=== PATIENT | male | born 1965 | race Caucasian/White ===

== ENCOUNTER 2024-09-02 16:35 | Emergency (ER) | payer MEDICARE, SELFPAY ==
[2024-09-02] VITALS (9 sets, daily range): BP systolic 116–145; BP diastolic 73–84; PULSE 60–86; RESP 16–18; TEMP 36.7; O2SAT 96–100; BMI 25.7
--- OUTSIDE RECORDS SUMMARY | 2024-09-02 11:00 | XMS_ITS | Encounter Summary ---
Author Organization [facility] Address [address] [place] [address] Care Team Providers Care Jigman Name Role Phone Bassam Padilla MD Primary Care Provider [phone] Reason for Referral * CT Scan (Urgent) - Pending Review Specialty Diagnoses / Procedures Referred By Jailene crooks Referred To Contact Diagnoses Incisional hernia, without obstruction or gangrene History of malignant neoplasm of large intestine Procedures CT ABDOMEN PELVIS W CONTRAST CT ABDOMEN PELVIS W CONTRAST CT ABDOMEN PELVIS W CONTRAST Bassam Padilla MD [address] [place] [phone] Phone: tel: fax: Referral ID Status Reason Start Date Expiration Date V isits Requested Visits Authorized [id number] Pending Review 09/02/2024 10/03/2025 1 1 * Eval and Treat (Routine) - Open Specialty Diagnoses / Procedures Referred By Jailene crooks Referred To Contact Surgery Diagnoses Incisional hernia, without obstruction or gangrene History of malignant neoplasm of large intestine Procedures ME OFFICE/OUTPATIENT ESTABLISHED MOD MDM 30 MIN ME OFFICE/OUTPATIENT NEW MODERATE MDM 45 MINUTES Bassam Padilla MD [address] [place] [phone] Phone: tel: fax: Referral ID Status Reason Start Date Expiration Date Visits Re quested Visits Authorized [id number] Open 09/02/2024 09/02/2025 1 1 Reason for Visit * Reason Comments Annual Wellness Visit (Medicare) Chronic Conditions Coordination Encounter Details Date Type Department Care Team (Late st Contact Info) Description 09/02/2024 11:00 AM CDT Office Visit [facility] [address] [address] Bassam Padilla MD [address] [place] [phone] Medicare annual wellness visit, subsequent (Primary [...] on file Legal Sex Male 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 All questions were answered. Uryti-Cswvv-Vrtouor provided to patient. ACUTE AND/OR CHRONIC ISSUES [...] Patient is currently in drug rehab at [facility] for the next month. He is needing [...] Portions of this note were created using Mark media Dictation software. Attempts were made to correct any mistakes prior to signing this note. There is always a possibility that words were not transcribed correctly. documented in this encounter Plan of Treatment Upcoming Encounters Date Type Department Care Team (Late st Contact Info) Description 03/07/2025 11:00 AM SLATE TRIMMER Office Visit [facility] Medicine [address] [address] Niya Mccormick, [facility] [address] [address] Scheduled Orders Name Type Priority Associated Diagnoses Orde r Schedule TSH REFLEXIVE Lab Routine Moderate episode of recurrent major depressive disorder Expected: 09/02/2024, Expires: 09/02/2025 LIPID PANEL Lab Routine Medicare annual wellness visit, subsequent Expected: 09/02/2024, Expires: 09/02/2025 COMPREHENSIVE METABOLIC PANEL Lab Routine Medicare annual wellness visit, subsequent Expected: 09/02/2024, Expires: 09/02/2025 CBC WITH DIFFERENTIAL Lab Routine Medicare annual wellness visit, subsequent Expected: 09/02/2024, Expires: 09/02/2025 CT ABDOMEN PELVIS W CONTRAST Imaging Stat [...] Ordered: 09/02/2024 documented as of this encounter Visit Diagnoses Diagnosis Medicare annual [...] Noted Time PHQ-9 Depression Total Score: 1 09/03/19 25 10:32 AM CDT documented as of this encounter Care Teams Jigman Relationship Specialty Start Date End Date Bassam Padilla MD [address] [place] [phone] PCP - General Family Practice 10/15/23 documented as of this encounter
--- OUTSIDE RECORDS SUMMARY | 2024-09-02 16:58 | XMS_ITS | Encounter Summary ---
Author Organization [facility] Address [address] [place] [address] Care Team Providers Care Back Tender Fourdrinier Name Role Phone Bassam Padilla MD Primary Care Provider [phone] Reason for Visit * Reason Comments Provider Call Encounter Details Date Type Department Care Team ([facility] st Contact Info) Description 08/31/2024 Telephone [facility] [place] [address] [address] Bassam Padilla MD [address] [address] Provider Call Social History Tobacco Use Types Packs/Day Years Used Date Smoking Tobacco: Every Day Cigarettes Smokeless Tobacco: Never Alcohol Use Standard Drinks/Week Comments No 0 [...] on file Legal Sex Male 1:01 AM CHARGE ENTRY Gender Identity Not on file Sexual Orientation Not on file documented as of this encounter Miscellaneous Notes * Telephone Encounter - Anastasia Le - 08/31/2024 3:05 PM CDT Copied from [facility] #[id number]. Topic: [id number] Call >> Aug 31, 2024 2:58 PM Anastasia Serna wrote: Caller is requesting to speak with Clinical Care Team. Caller Name: [facility] Callback Number: [phone] Clinician Type: Other healthcare professional not listed above Call Notes: Has TAN and is requesting records. Transferred to CI. Is this addressing an immediate patient care need? No documented in this encounter Plan of Treatment Upcoming Encounters Date Type Department Care Team (Late st Contact Info) Description 03/07/2025 11:00 AM CHARGE ENTRY Office Visit [facility] [place] [address] [facility] [address] [place] [address] Niya Mccormick FNP [address] [facility] [address] [place] [address] documented as of this encounter Visit Diagnoses Not on filedocumented in this encounter Additional Health Concerns Assessment Noted Time PHQ-9 Depression Total Score: 2 08/14/19 24 6:00 PM CDT documented as of this encounter Care Teams Back Tender Fourdrinier Relationship Specialty Start Date End Date Bassam Padilla MD [address] [facility] [address] [place] [address] PCP - General Family Practice 10/15/23 documented as of this encounter
--- OUTSIDE RECORDS SUMMARY | 2024-09-02 16:58 | XMS_ITS | Encounter Summary ---
Author Organization [facility] Address [address] [place] [address] Care Team Providers Care Acrylic Fabricator Name Role Phone Coleman Montero MD Primary Care Provider [phone] Encounter Details Date Type Department Care Team (Latest Contact Info) Description 07/07/1998 Outpatient Historical [address] [phone] Shaw Schmidt, DO [address] [place] [address] Essential and other specified forms of tremor (Primary Dx) Social History Tobacco Use Types Packs/Day Years Used Date Smoking Tobacco: Never Assessed Sex and Gender Information Value Date Recorded Sex Assigned at Not on file Legal Sex Male 5:53 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
--- OUTSIDE RECORDS SUMMARY | 2024-09-02 16:58 | XMS_ITS | Encounter Summary ---
Author Organization [facility] Address [address] [place] [address] Care Team Providers Care Loading Dock Helper Name Role Phone Coleman Montero MD Primary Care Provider [phone] Encounter Details Date Type Department Care Team (Latest Contact Info) Description 03/16/2005 Outpatient Historical [facility] [address] [place] [phone] Jaden Pardo MD [address] [place] [phone] CYST OF KIDNEY, ACQUIRED (Primary Dx) Social History Tobacco Use Types Packs/Day Years Used Date Smoking Tobacco: Never Assessed Sex and Gender Information Value Date Recorded Sex Assigned at Not on file Legal Sex Male 5:53 AM COMMUNITY OUTREACH SPECIALIST Gender Identity Not on file Sexual Orientation Not on file documented as of this encounter Plan of Treatment Not on file documented as of this encounter Visit Diagnoses Diagnosis Acquired cyst of kidney- Primary documented in this encounter Care Teams Loading Dock Helper Relationship Specialty Start Date End Date Coleman Montero MD [address] [place] [address] PCP - General Family Practice 08/18/13 documented as of this encounter
--- OUTSIDE RECORDS SUMMARY | 2024-09-02 16:58 | XMS_ITS | Encounter Summary ---
Author Organization [facility] Address [address] [place] [address] Care Team Providers Care Raised Printer Name Role Phone Coleman Montero MD Primary Care Provider [phone] Encounter Details Date Type Department Care Team (Latest Contact Info) Description 05/01/1998 Outpatient Historical [address] [phone] Shaw Schmidt, DO [address] [place] [address] Spasm of muscle (Primary Dx) Social History Tobacco Use Types Packs/Day Years Used Date Smoking Tobacco: Never Assessed Sex and Gender Information Value Date Recorded Sex Assigned at Not on file Legal Sex Male 5:53 AM PERSONAL PROPERTY APPRAISER Gender Identity Not on file Sexual Orientation Not on file documented as of this encounter Plan of Treatment Not on file documented as of this encounter Visit Diagnoses Diagnosis Spasm of muscle- Primary documented in this encounter Care Teams Raised Printer Relationship Specialty Start Date End Date Coleman Montero MD [address] [place] [phone] PCP - General Family Practice 08/18/13 documented as of this encounter
--- OUTSIDE RECORDS SUMMARY | 2024-09-02 16:58 | XMS_ITS | Encounter Summary ---
Author Organization [facility] Address [address] [place] [address] Care Team Providers Care Coal Handling Supervisor Name Role Phone Coleman Montero MD Primary Care Provider [phone] Encounter Details Date Type Department Care Team (Latest Contact Info) Description 11/19/[address] [facility] Occupational Medicine [address] [place] [phone] Eran Barajas MD NO ADDRESS ON FILE Routine medical exam (Primary Dx) Social History Tobacco Use Types Packs/Day Years Used Date Smoking Tobacco: Never Assessed Sex and Gender Information Value Date Recorded Sex Assigned at Not on file Legal Sex Male 5:53 AM SAMPLE TESTER Gender Identity Not on file Sexual Orientation Not on file documented as of this encounter Plan of Treatment Not on file documented as of this encounter Visit Diagnoses Diagnosis Routine medical exam- Primary Routine general medical examination at a health care facility documented in this encounter Care Teams Coal Handling Supervisor Relationship Specialty Start Date End Date Coleman Montero MD [address] [place] [address] PCP - General Family Practice 08/18/13 documented as of this encounter
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
--- OUTSIDE RECORDS SUMMARY | 2024-09-02 16:58 | XMS_ITS | Encounter Summary ---
Author Organization [facility] Address [address] [place] [address] Care Team Providers Care Recreational Facilities Motel Manager Name Role Phone Coleman Montero MD Primary Care Provider [phone] Encounter Details Date Type Department Care Team (Latest Contact Info) Description 06/12/1998 Outpatient Historical [facility] [place] [address] [place] [address] Abnormal involuntary movements(781.0) (Primary Dx) Social History Tobacco Use Types Packs/Day Years Used Date Smoking Tobacco: Never Assessed Sex and Gender Information Value Date Recorded Sex Assigned at Not on file Legal Sex Male 5:53 AM TECHNICAL APPLICATIONS SPECIALIST Gender Identity Not on file Sexual Orientation Not on file documented as of this encounter Plan of Treatment Not on file documented as of this encounter Visit Diagnoses Diagnosis Abnormal involuntary movements(781.0)- Primary Abnormal involuntary movements documented in this encounter Care Teams Recreational Facilities Motel Manager Relationship Specialty Start Date End Date Coleman Montero MD [address] [place] [address] PCP - General Family Practice 08/18/13 documented as of this encounter
--- OUTSIDE RECORDS SUMMARY | 2024-09-02 16:58 | XMS_ITS | Clinical Summary ---
Author Organization [facility] Address [address] [place] [address] Phone Care Team Providers Care Loan Representative Name Role Phone Coleman Montero MD Primary Care Provider [phone] Allergies Active Allergy Reactions Criticality Noted Date Comments Ibuprofen Hives High 08/26/2009 Oxaliplatin Shortness of Breath/Wheezing High 2013 Medications diphenoxylate-a tropine (LOMOTIL) 2.5-0.025 mg tablet Take 2 Tablets by mouth 2 times daily. 200 Tablet 1 0 Active mirtazapine (REMERON) 30 mg tabletIndicatio ns:Moderate episode of recurrent major depressive disorder (CMS/HCC) TAKE 1 TABLET BY MOUTH AT BEDTIME 90 Tablet 3 0 Active pregabalin (Lyrica) 150 mg CapsuleIndicati ons:Chronic midline low back pain with bilateral sciatica Take 1 Capsule (150 mg) by mouth 3 times daily. 90 Capsule 5 0 Active colestipoL (COLESTID) 1 gram tablet Take 4 Tablets (4,000 mg) by mouth 2 times daily. 720 Tablet 4 0 Active Combivent Respimat 20-100 mcg/actuation Mist INHALE 1 PUFF BY MOUTH EVERY 6 HOURS NEEDED FOR SHORTNESS OF BREATH OR WHEEZING 4 Gram 1 Active Active Problems Problem Noted Date Diagnosed Date Drug-induced polyneuropathy 02/22/2020 Overview (02/22/2020): ADDED PER PVQ REPLY 02.11.2020 Prediabetes 08/21/2019 Elevated alanine aminotransferase (ALT) level Adenomatous polyp of colon 10/22/2018 Incisional hernia, without o bstruction or gangrene - upper midline to the left 12/16/2016 Moderate episode of recurrent major depressive d isorder 02/09/2016 Abdominal pain, chronic, generalized 06/07/2014 History of malignant neoplasm of large intestine 04/18/2014 Chronic diarrhea 03/02/2014 Chronic midline low back pain with bilateral sci atica 08/23/2013 Asthma 07/12/2013 Anemia 04/13/2013 Tobacco use disorder 09/02/2010 Resolved Problems Problem Noted Date Diagnosed Date Resolved Date Elevated glucose level 08/13/201908/20 Osteoarthritis of spine with radiculopathy, lumbar region 04/26/2016 01/11/2018 Chronic pain syndrome 02/09/20162017 Chronic LBP 07/05/2014 12/16/2016 Lumbosacral spondylosis 07/05/201411/25 Lumbosacral spondylolysis 07/05/2014 Lumbar foraminal stenosis 07/05/2014 Osteoarthritis of lumbar spine 05/25/2014 04/26/2016 Special screening for malign ant neoplasms, colon 04/18/2014 01/11/2018 Lumbar disc disease 09/27/2013 01/12/20 18 Left knee pain 07/12/2013 01/11/2018 Depression 07/12/2013 02/09/2016 Adenocarcinoma of colon 04/14/201311/25 Hematuria 04/13/2013 07/12/2013 Hematemesis 04/12/2013 07/12/2013 Blood in stool 04/12/2013 07/12/2013 Change in bowel habits 04/12/201307/12 Abdominal pain, other specified site 04/11/2013 08/23/2013 Atypical chest pain 09/02/2010 07/13/19 14 Anxiety state, unspecified 09/02/2010 0 07/12/2013 Low back pain 09/02/2010 07/12/2013 Overview (09/02/2010): anterolithesis on S1 noted on xray films in May 2010- has worn back brace during the day and at night since then Migraines 09/02/2010 07/12/2013 Overview (09/02/2010): Since age 16 Immunizations Immunization Administration Dates Next Due (ADACEL/BOOSTRIX)(10 YR UP) TDAP VACCINE, 0.5ML, IM 01/28/2014 (SHINGRIX)(50 YRS UP) ZOSTER VACCINE RECOMBINANT, 0.5 ML, IM 06/01/2019,12/07/2018,03/26/2018 INFLUENZA VACCINE QUADRIVALE NT 6 MOS UP CELL DERIVED PF IM 11/22/2016 INFLUENZA VACCINE QUADRIVALE NT 6 MOS UP PF IM 02/21/2020 Influenza Seasonal Unspecifi ed Formulation IM 12/06/2017,11/22/2016 Influenza Vaccine Quad Split 18 Yrs+ Im 11/03/19 19 Influenza Vaccine Quad Split 3+ Yrs Im 4 PNEUMOVAX (PPSV23) pneumococ maxine polysaccharide 23-valent Vaccine 12/06/2017 Family History Medical History Relation Name Comments High Cholesterol Brother Heart Disease Father Respiratory Disease Father Heart Disease Mother Hypertension Mother Kidney Disease Mother Other Mother Heart Disease Sister 1 Unknown Sister 2 Unknown Sister 3 Colon Cancer Neg Hx Relation Name Status Comments Brother Alive Father Mother Alive Sister 1 Alive Sister 2 Alive Sister 3 Alive Social History Tobacco Use Types Packs/Day Years Used Date Smoking Tobacco: Every Day Cigarettes 0.5 36 Smokeless Tobacco: Never Tobacco Cessation:Counseling Given: Yes Alcohol Use Standard Drinks/Week Comments No 0 (1 standard drink = 0.6 oz pur e alcohol) Social Connections Answer Date Recorded In a typical week, how many times do you talk on the phone with family, friends, or neighbors? Once a week 02/11/2020 How often do you get togethe r with friends or relatives? Never 02/11/2020 How often do you attend chur ch or shinto services? More than 4 times per year 02/11/2020 Do you belong to any clubs o r organizations such as sabianist groups, unions, fraternal or athletic groups, or school groups? No 02/11/2020 How often do you attend meet ings of the clubs or organizations you belong to? More than 4 times per year 02/11/2020 Marital Status Not on file 02/11/2020 Financial Resource Strain Answer Date R ecorded How hard is it for you to pa y for the very basics like food, housing, medical care, and heating? Somewhat hard 02/11/2020 Food Insecurity Answer Date Recorded Within the past 12 months, y ou worried that your food would run out before you got the money to buy more. Often true 02/11/20 20 Within the past 12 months, t he food you bought just didn't last and you didn't have money to get more. Often true 02/11/2020 Transportation Needs Answer Date Record ed In the past 12 months, has l ack of transportation kept you from medical appointments or from getting medications? Yes 01/24 In the past 12 months, has l ack of transportation kept you from meetings, work, or from getting things needed for daily living? Yes 02/11/2020 Education Answer Date Recorded What is the highest level of school you have completed or the highest degree you have received? 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 Gender Identity Not on file Sexual Orientation Not on file Occupation Industry Job Start Date Job End Date Not on file Not on file Not on file Not on file Not on file Not on file Not on file Not on file Last Filed Vital Signs Vital Sign Reading Time Taken Comments Blood Pressure 152/88 07/20/2020 10:03 AM CDT Pulse 73 07/20/2020 10:03 AM CDT Temperature 36.2 C (97.1 F) 07/20/2020 10:03 AM CDT Respiratory Rate 16 02/11/2020 9:23 AM PASTRY SUPERVISOR Oxygen Saturation 98% 07/20/2020 10:03 AM CDT Inhaled Oxygen Concentration - - Weight 117 kg (258 lb) 07/20/2020 10:03 AM CDT Height 180.3 cm (5' 11 ) 07/20/2020 10:03 AM CDT Body Mass Index 35.98 07/20/2020 10:03 AM CDT Plan of Treatment Health Maintenance Due Date Last Done Comments HEPATITIS B VACCINES (1 of 3 - 19+ 3-dose series) 12/18/1986 DTAP/TDAP/TD VACCINES (2 - T d or Tdap) 01/29/2024 01/28/2014 [place] ([place]) Preventative Visit/Annual Wellness Visit 02/25/2024 02/11/2020 COLORECTAL SCREENING 05/11/2024 05/12/2019, 05/12/2019, 02/27/2016, Additional history exists INFLUENZA VACCINE (#1) 2024 0, 11/02/2018, 12/06/2017, Additional history exists ZOSTER VACCINE Completed 06/01/2019, 11/24, 03/26/2018 Procedures Procedure Name Priority Date/Time Associated Diagnosis Comments COLONOSCOPY REPORT 05/12/2019 11 :09 AM CDT from Last 3 Months or Most Recently Relevant to Health Maintenance Results * COLONOSCOPY REPORT (05/12/2019 11:09 AM CDT) Narrative Procedure Note Trav Villalta MD - 05/12/2019 11:09 AM CDT [facility] Patient Name: Dimas Prado Procedure Date: 05/12/2019 Date of : 1965 Admit Type: Outpatient Age: 53 Attending MD: Trav Villalta , Procedure: Colonoscopy Indications: Screening for malignant neoplasm in the colon, High risk colon cancer surveillance: Personal history of colon cancer Providers: Trav Villalta Referring MD: Coleman Montero MD Medicines: Midazolam 5 mg IV, Fentanyl 100 micrograms IV Complications: No immediate complications. Procedure: After I obtained informed consent, the scope was passed under direct vision. Throughout the procedure, the patient's blood pressure, pulse, and oxygen saturations were monitored continuously. The Colonoscope was introduced through the anus and advanced to the terminal ileum, with identification of the appendiceal orifice and IC valve. The colonoscopy was performed without difficulty. The patient tolerated the procedure well. The quality of the bowel preparation was adequate. Estimated Blood Loss: Estimated blood loss: none. Findings: A 5 mm polyp was found in the sigmoid colon. The polyp was sessile. The polyp was removed with a cold snare. Resection and retrieval were complete. The exam was otherwise without abnormality. There was evidence of a prior end-to-side ileo-colonic anastomosis in the transverse colon. This was patent and was characterized by healthy appearing mucosa. Impression: - One 5 mm polyp in the sigmoid colon, removed with a cold snare. Resected and retrieved. - The examination was otherwise normal. - Patent end-to-side ileo-colonic anastomosis, characterized by healthy appearing mucosa. Recommendation: - Await pathology results. - Repeat colonoscopy in 5 years. Trav Villalta, 05/12/2019 11:09:13 AM Number of Addenda: 0 Note Initiated On: 05/12/2019 10:53 AM Scope Withdrawal Time 0 hours 5 minutes 32 seconds Scope In: 10:58:15 AM Scope Out: 11:06:05 AM [id number] [place], [place] Trav Villalta MD GI PROCEDURE ORDERABLES Fin al Result from Last 3 Months or Most Recently Relevant to Health Maintenance Insurance MEDICAID [place] Advance Directives For more information, please contact: [phone] * Full Code (Latest Code Status on File) Date Activated Date Inactivated Comments 05/12/2019 10:30 AM 05/12/2019 1:33 PM * Full Code Date Activated Date Inactivated Comments 02/27/2016 9:31 AM 02/27/2016 12:33 PM * Full Code Date Activated Date Inactivated Comments 04/18/2014 10:37 AM 04/18/2014 2:31 PM * Full Code Date Activated Date Inactivated Comments 05/26/2013 11:53 AM 05/26/2013 3:18 PM * Full Code Date Activated Date Inactivated Comments 05/26/2013 9:34 AM 05/26/2013 11:53 AM Care Teams Loan Representative Relationship Specialty Start Date End Date Coleman Montero MD [address], [place] [address] PCP - General Family Practice 08/18/13
--- OUTSIDE RECORDS SUMMARY | 2024-09-02 16:58 | XMS_ITS | Encounter Summary ---
Author Organization [facility] Address [address] [place] [address] Care Team Providers Care Manager Intensive Care Unit Name Role Phone Bassam Padilla MD Primary Care Provider [phone] Reason for Visit * Reason Comments Provider Call Encounter Details Date Type Department Care Team ([facility] st Contact Info) Description 09/02/2024 Telephone [facility] [place] [address] [address] Bassam Padilla MD [address] [address] Provider Call Social History Tobacco Use Types Packs/Day Years Used Date Smoking Tobacco: Every Day Cigarettes Passive Smoke Exposure: Current Smokeless Tobacco: Never Alcohol Use Standard Drinks/Week [...] on file Legal Sex Male 1:01 AM CUT OFF SAW TENDER 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 They will share information as they receive it from ER * Telephone Encounter - Jeffrey Velarde - 09/02/2024 12:52 PM CDT Copied from [facility] #[id number]. Topic: [id number] Call >> Sep 02, 2024 12:47 PM Jeffrey Serna wrote: Caller is requesting to speak with Clinical Care Team. Caller Name: Massiel collins/ [facility] (Other) Callback Number: [phone] Clinician Type: Other healthcare professional not listed above Call Notes: Massiel was calling to get some clarification on the patient's health conditions. She states that the patient is reporting that he has end stage cancer, and has missed several oncology appointments and surgeries. His chart does show anything reporting that, so she is needing some verification. Is this addressing an immediate patient care need? No documented in this encounter Plan of Treatment Upcoming Encounters Date Type Department Care Team (Late st Contact Info) Description 03/07/2025 11:00 AM CUT OFF SAW TENDER METAL Office Visit [facility] [place] [address] [address] Niya Mccormick FNP [address] [facility] [address] [place] [address] documented as of this encounter Visit Diagnoses Not on filedocumented in this encounter Additional Health Concerns Assessment Noted Time PHQ-9 Depression Total Score: 1 09/03/19 10:32 AM CDT documented as of this encounter Care Teams Manager Intensive Care Unit Relationship Specialty Start Date End Date Bassam Padilla MD [address] [place] [phone] PCP - General Family Practice 10/15/23 documented as of this encounter
--- OUTSIDE RECORDS SUMMARY | 2024-09-02 16:58 | XMS_ITS ---
Author Organization [facility] Address [address] [place] [address] Phone Care Team Providers Care Blood Bank Technician Name Role Phone Bassam Padilla MD Primary Care Provider [phone] Active Problems Problem Noted Date Diagnosed Date Allergy to bee sting 09/02/2024 Drug-induced polyneuropathy 02/22/2020 Overview (06/23/2020): ADDED PER PVQ REPLY 02.11.2020 Adenomatous polyp of colon 10/22/2018 Incisional hernia, without o bstruction or gangrene - upper midline to the left 12/16/2016 Moderate episode of recurrent major depressive d isorder 02/09/2016 Abdominal pain, chronic, generalized 06/07/2014 History of malignant neoplasm of large intestine 04/18/2014 Chronic diarrhea 03/02/2014 Chronic midline low back pain with bilateral sci atica 08/23/2013 Asthma 07/12/2013 Anemia 04/13/2013 Tobacco use disorder 09/02/2010 Current Treatment and Therapy Plans No current plan information found. Past Treatment and Therapy Plans No past plan information found. Lifetime Dose Tracking * Chemical Lifetime Dose Automatic Entry Manual Entr y Effective Dose 15.6 mSv 0 mSv 15.6 mSv Total DLP 1,384 DLP 0 DLP 1,384 DLP CTDIvol Max 13.7 mGy 0 mGy 13.7 mGy CTDIvol Min 12.8 mGy 0 mGy 12.8 mGy Resolved Problems Problem Noted Date Diagnosed Date Resolved Date Prediabetes 08/21/2019 04/15/2023 Elevated glucose level 08/13/201908/20 Elevated alanine aminotransferase (ALT) level 06/09/19 20 09/02/2024 Osteoarthritis of spine with radiculopathy, lumbar region 04/26/2016 01/11/2018 Chronic pain syndrome 02/09/20162017 Lumbosacral spondylosis 07/05/201411/25 Chronic LBP 07/05/2014 12/16/2016 Lumbar foraminal stenosis 07/05/2014 Lumbosacral spondylolysis 07/05/2014 Osteoarthritis of lumbar spine 05/25/2014 04/26/2016 Special screening for malign ant neoplasms, colon 04/18/2014 01/11/2018 Lumbar disc disease 09/27/2013 01/12/20 Left knee pain 07/12/2013 01/11/2018 Depression 07/12/2013 02/09/2016 Adenocarcinoma of colon 04/14/201311/25 Hematuria 04/13/2013 07/12/2013 Change in bowel habits 04/12/201307/12 Hematemesis 04/12/2013 07/12/2013 Blood in stool 04/12/2013 07/12/2013 Abdominal pain, other specified site 04/11/2013 08/23/2013 Atypical chest pain 09/02/2010 07/13/19 14 Migraines 09/02/2010 07/12/2013 Overview (06/21/2020): Since age 16 Low back pain 09/02/2010 07/12/2013 Overview (06/21/2020): anterolithesis on S1 noted on xray films in May 2010- has worn back brace during the day and at night since then Anxiety state, unspecified 09/02/2010 0 07/12/2013
--- OUTSIDE RECORDS SUMMARY | 2024-09-02 16:58 | XMS_ITS | Encounter Summary ---
Author Organization [facility] Address [address] [place] [address] Care Team Providers Care Hardboard Press Operator Name Role Phone Coleman Montero MD Primary Care Provider [phone] Encounter Details Date Type Department Care Team (Late st Contact Info) Description 02/21/2007 Emergency [facility] Emergency Department [address] 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 Gender Identity Not on file Sexual Orientation Not on file documented as of this encounter Plan of Treatment Not on file documented as of this encounter Procedures Procedure Name Priority Date/Time Associated Diagnosis Comments CBC WITH DIFFERENTIAL Routine 02/21/2007 11:17 AM HOSE FINISHER documented in this encounter Results * (ABNORMAL) CBC WITH DIFFERENTIAL (02/21/2007 11:17 AM HOSE FINISHER) WBC 11.7(H) 4.5 - 11.0 K/ul INTERFACE SYSTEM RBC 4.53(L) 4.60 - 6.20 Mil/ul INTERFACE SYSTEM HEMOGLOBIN 14.5 14.0 - 18.0 g/dL INTERFACE SYSTEM HEMATOCRIT 42.0 41.0 - 53.0 % INTERFACE SYSTEM MCV 92.7 84.0 - 103.0 Fl INTERFACE SYSTEM MCH 32.0 27.0 - 34.0 pg INTERFACE SYSTEM MCHC 34.5 30.0 - 35.0 g/dL INTERFACE SYSTEM RDW 13.7 11.0 - 14.5 % INTERFACE SYSTEM PLATELETS 222 140 - 440 K/ul INTERFACE SYSTEM MPV 9.9 8.9 - 12.8 Fl INTERFACE SYSTEM NEUTROPHILS 67.1 42.2 - 75.2 % INTERFACE SYSTEM LYMPHOCYTES 16.4(L) 24.0 - 44.0 % INTERFACE SYSTEM MONOCYTES 15.7(H) 2.0 - 10.0 % INTERFACE SYSTEM EOSINOPHILS 0.5 0.0 - 7.0 % INTERFACE SYSTEM BASOPHILS 0.3 0.0 - 1.0 % INTERFACE SYSTEM NEUTROPHIL ABSOLUTE 7.8 2.0 - 8.0 K/ul INTERFACE SYSTEM LYMPHOCYTE ABSOLUTE 1.9 1.2 - 4.0 K/ul INTERFACE SYSTEM MONOCYTE ABSOLUTE 1.8(H) 0.1 - 0.6 K/ul INTERFACE SYSTEM EOSINOPHIL ABSOLUTE 0.1 0.0 - 0.7 K/ul INTERFACE SYSTEM BASOPHILS ABSOLUTE 0.0 0.0 - 0.2 K/ul INTERFACE SYSTEM 02/21/2007 11:1 7 AM HOSE FINISHER us Tariq Mays MD HEMATOLOGY ORDERABLES Edited INTERFACE SYSTEM Refer to clinic/hospital department documented in this encounter Visit Diagnoses Diagnosis Cellulitis and abscess of upper arm and forearm Other convulsions Tobacco use disorder Personal history of allergy to analgesic agent Dog bite(E906.0) Dog bite Unspecified place of occurrence documented in this encounter Care Teams Hardboard Press Operator Relationship Specialty Start Date End Date Coleman Montero MD [address] [place] [phone] PCP - General Family Practice 08/18/13 documented as of this encounter
--- OUTSIDE RECORDS SUMMARY | 2024-09-02 16:58 | XMS_ITS | Encounter Summary ---
Author Organization [facility] Address [address] [place] [address] Care Team Providers Care Green Chain Off Bearer Name Role Phone Coleman Montero MD Primary Care Provider [phone] Encounter Details Date Type Department Care Team (Latest Contact Info) Description 03/16/2005 Outpatient Historical [facility] [place] [address] [place] [phone] Jaden Pardo MD [address] [place] [address] RENAL COLIC (Primary Dx) Social History Tobacco Use Types Packs/Day Years Used Date Smoking Tobacco: Never Assessed Sex and Gender Information Value Date Recorded Sex Assigned at Not on file 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 Gender Identity Not on file Sexual Orientation Not on file documented as of this encounter Plan of Treatment Not on file documented as of this encounter Procedures Procedure Name Priority Date/Time Associated Diagnosis Comments CT URINARY CALCULI WO CONTRAST Routine 03/16/2005 3:19 PM BEEF CATTLE FARM MANAGER documented in this encounter Results * CT RENAL COLIC WO CONT (03/16/2005 3:19 PM BEEF CATTLE FARM MANAGER) Anatomical Region Laterality Modality Abdomen Other 03/16/2005 3:19 PM BEEF CATTLE FARM MANAGER Narrative 03/16/2005 3:19 PM BEEF CATTLE FARM MANAGER RENAL COLIC CT DATE: 03/16/2005. HISTORY: Left-sided pain. Hematuria. No comparisons. No contrast was utilized. The visualized lung bases are clear. The visualized portions of the liver are unremarkable. No abnormality of the spleen, pancreas, bile ducts, gallbladder, or adrenal glands is noted. No adenopathy is present. There are no abnormally dilated loops of bowel. No free air or free fluid is noted. There is a 1.5 cm cyst in the upper pole of the right kidney. The right kidney is otherwise unremarkable. No abnormality of the left kidney is appreciated. No right renal or ureteral calculi are identified. There is no evidence for right hydronephrosis or hydroureter. The left kidney is unremarkable in appearance. No left renal calculi are identified. There is no evidence for left hydronephrosis or hydroureter. On image 64, there is a 3 mm calcification in the left hemipelvis that could lie within the distal left ureter. This calcification could be a phlebolith or a nonobstructing calculus. 1. There is a 3 mm calcification in the left hemipelvis that is nonspecific in appearance. A distal left ureteral calculus cannot be excluded, but is felt to be less likely in that there are no associated findings of hydroureter or ureteral wall thickening. 2. There is a 1.5 cm cyst in the upper pole of the right kidney. 3. The study is otherwise unremarkable. 1639 T: gb 03/17/2005 0955 Dictated By: Haydee Browne M.D. Electronically Signed By: Haydee Browne M.D. Date Signed: 03/17/05 [facility]B Procedure Note 01/12/[address] DATE: 03/16/2005. HISTORY: Left-sided pain. Hematuria. No comparisons. No contrast was utilized. The visualized lung bases are clear. The visualized portions of the liver are unremarkable. No abnormality ofthe spleen, pancreas, bile ducts, gallbladder, or adrenal glands is noted. No adenopathy is present.There are no abnormally dilated loops of bowel. No free air or free fluid is noted. There is a 1.5 cm cyst in the upper pole of the right kidney. The rightkidney is otherwise unremarkable. No abnormality of the left kidney is appreciated. No rightrenal or ureteral calculi are identified. There is no evidence for right hydronephrosis or hydroureter. The left kidney is unremarkable in appearance. No left renal calculi areidentified. There is no evidence for left hydronephrosis or hydroureter. On image 64, there is a3 mm calcification in the left hemipelvis that could lie within the distal left ureter. Thiscalcification could be a phlebolith or a nonobstructing calculus. 1. There is a 3 mm calcification in the left hemipelvis that isnonspecific in appearance. A distal left ureteral calculus cannot be excluded, but is felt to be less likelyin that there are no associated findings of hydroureter or ureteral wall thickening. 2. There is a 1.5 cm cyst in the upper pole of the right kidney. 3. The study is otherwise unremarkable. 1639 T: gb 03/17/2005 0955 Dictated By: Haydee Browne M.D. Electronically Signed By: Haydee Browne M.D. Date Signed: 03/17/05 [facility]B Jaden Pardo MD CT ORDERABLES Final Result documented in this encounter Visit Diagnoses Diagnosis Renal colic- Primary documented in this encounter Care Teams Green Chain Off Bearer Relationship Specialty Start Date End Date Coleman Montero MD [address] [place] [phone] PCP - General Family Practice 08/18/13 documented as of this encounter
--- OUTSIDE RECORDS SUMMARY | 2024-09-02 16:58 | XMS_ITS | Clinical Summary ---
Author Organization [facility] Address [address] [place] [address] Phone Care Team Providers Care Optician Manager Name Role Phone Bassam Padilla MD Primary Care Provider [phone] Allergies Active Allergy Reactions Criticality Noted Date Comments Ibuprofen Hives High 08/26/2009 Oxaliplatin Shortness of Breath/Wheezing High 2013 Medications acetaminophen (TYLENOL) 500 mg tablet Take 500 mg by mouth every 6 hours as needed. Active nicotine polacrilex (NICORETTE) 4 mg Gum by See Admin Instructions route every 2 hours as needed for Smoking Cessation. Active EPINEPHrine (EPIPEN) 0.3 mg/0.3 mL Auto-InjectorIn dications:Aller gy to bee sting Administer per package directions only for severe allergic (anaphylactic) reaction with trouble breathing. 1 Each 2 025 Active pregabalin (LYRICA) 150 mg CapsuleIndicati ons:Chronic midline low back pain with bilateral sciatica Take 1 Capsule (150 mg) by mouth every 8 hours. 90 Capsule 5 025 Active mirtazapine (REMERON) 30 mg tabletIndicatio ns:Moderate episode of recurrent major depressive disorder (CMS/HCC) TAKE 1 TABLET(30 MG) BY MOUTH DAILY AT BEDTIME 90 Tablet 025 Active ipratropium-alb uteroL (Combivent Respimat) 20-100 mcg/actuation MistIndications :Mild intermittent asthma without complication INHALE 1 PUFF BY MOUTH EVERY 6 HOURS NEEDED FOR SHORTNESS OF BREATH OR WHEEZING 4 Gram 025 Active pregabalin (LYRICA) 150 mg CapsuleIndicati ons:Chronic midline low back pain with bilateral sciatica TAKE 1 CAPSULE(150 MG) BY MOUTH THREE TIMES DAILY 90 Capsule 2 03/27/ 024 2024 Discontinued(R eorder) SUMAtriptan (Imitrex) 50 mg tablet Take 1 Tablet (50 mg) by mouth 1 time daily as needed for Headaches. may repeat in 2 hours; max dose 100 mg in 24 hours 45 Tablet 2 024 2024 Discontinued(P atient thought no longer needed) cholecalciferol 1,250 mcg (50,000 unit) Capsule Take 1 Capsule (50,000 Units) by mouth every 7 days. 13 Capsule 3 024 2024 Discontinued(P atient thought no longer needed) mirtazapine (REMERON) 30 mg tabletIndicatio ns:Moderate episode of recurrent major depressive disorder (CMS/HCC) TAKE 1 TABLET(30 MG) BY MOUTH DAILY AT BEDTIME 90 Tablet 3 024 2024 Discontinued(R eorder) ipratropium-alb uteroL (Combivent Respimat) 20-100 mcg/actuation MistIndications :Mild intermittent asthma without complication INHALE 1 PUFF BY MOUTH EVERY 6 HOURS NEEDED FOR SHORTNESS OF BREATH OR WHEEZING 4 Gram 5 024 2024 Discontinued(R eorder) EPINEPHrine (EPIPEN) 0.3 mg/0.3 mL Auto-InjectorIn dications:Aller gy to bee sting Administer per package directions only for severe allergic (anaphylactic) reaction with trouble breathing. 1 Each 2 024 2024 Discontinued(R eorder) simethicone 125 mg Tablet, Chewable Chew one tablet after drinking first 1/2 of prep followed with 8 oz glass of water. Chew two tablets after drinking second 1/2 of prep followed with 8 oz glass of water. 3 Tablet 024 2024 Discontinued(P atient thought no longer needed) EPINEPHrine (EPIPEN) 0.3 mg/0.3 mL Auto-InjectorIn dications:Aller gy to bee sting Administer per package directions only for severe allergic (anaphylactic) reaction with trouble breathing. 1 Each 2 2024 Discontinued Active Problems Problem Noted Date Diagnosed Date [...] then Anxiety state, unspecified 09/02/2010 0 07/12/2013 Encounters Date Type Department Care Team Description 09/02/2024 11:00 AM CDT Office Visit [address] [phone] Bassam Padilla MD Medicare annual wellness visit, subsequent (Primary Dx); Moderate episode of recurrent major depressive disorder; Mild intermittent asthma without complication; Tobacco use disorder; Allergy to bee sting; Chronic midline low back pain with bilateral sciatica; Incisional hernia, without obstruction or gangrene - upper midline to the left; History of malignant neoplasm of large intestine 09/02/[address] [phone] Bassam Padilla MD Provider Call 08/31/[address] [phone] Bassam Padilla MD Provider Call 08/19/[address] [address] Bassam Padilla MD Appointment 08/17/2024 External Device Data [facility]CTION Provider, Abstract 08/17/2024 External Device Data [facility] Provider, Abstract 08/10/2024 External Device Data [facility] Provider, Abstract 07/20/2024 External Device Data [facility] Provider, Abstract 07/15/2024 External Device Data [facility] [place] Provider, Abstract 06/08/2024 External Device Data [facility] Provider, Abstract from Last 3 Months Immunizations Immunization Administration Dates Next Due (ADACEL/BOOSTRIX)(10 YR UP) TDAP VACCINE, 0.5ML, IM 01/28/2014 (SHINGRIX)(50 YRS UP) ZOSTER VACCINE RECOMBINANT, 0.5 ML, IM 06/01/2019,12/07/2018,03/26/2018 INFLUENZA VACCINE QUADRIVALE NT 6 MOS UP CELL DERIVED PF IM 12/12/2022,11/22/2016 INFLUENZA VACCINE QUADRIVALE NT 6 MOS UP PF IM 02/21/2020 Influenza Seasonal Unspecifi ed Formulation IM 12/20/2022,12/12/2022,12/06/2017,11/22 Influenza Vaccine Quad Split 18 Yrs+ Im 11/02/2018 Influenza Vaccine Quad Split 3+ Yrs Im 4 PNEUMOVAX (PPSV23) pneumococ maxine polysaccharide 23-valent Vaccine 12/06/2017 Family History Medical History Relation Name Comments High Cholesterol Brother Heart Disease Father Respiratory Disease Father Heart Disease Mother Hypertension Mother Kidney Disease Mother Other Mother Unknown Sister 1 Unknown Sister 2 Heart Disease Sister 3 Colon Cancer Neg Hx Relation [...] on file Legal Sex Male 1:01 AM COMMODITY BUYER Gender Identity Not on file Sexual Orientation Not on file Last Filed Vital Signs Vital Sign Reading Time Taken Comments Blood Pressure 112/60 09/02/2024 10:40 AM CDT Pulse 65 09/02/2024 10:40 AM CDT Temperature 36.6 C (97.8 F) 09/02/2024 10:40 AM CDT Respiratory Rate 13 09/11/2023 2:40 PM CDT Oxygen Saturation 99% 09/02/2024 10:40 AM CDT Inhaled Oxygen Concentration - - Weight 86.7 kg (191 lb 3.2 oz) 09/02/2024 10:40 AM CDT Height 180.3 cm (5' 11 ) 09/02/2024 10:40 AM CDT Body Mass Index 26.67 09/02/2024 10:40 AM CDT Plan of Treatment Upcoming Encounters Date Type Department Care Team (Late st Contact Info) Description 03/07/2025 11:00 AM COMMODITY BUYER Office Visit [facility] Medicine [place] [address] [address] Niya Mccormick, [facility] [address] [facility] [address] [place] [address] Health Maintenance Due Date Last Done Comments HEPATITIS B VACCINES (1 of 3 - 19+ 3-dose series) 12/18/1986 DTAP/TDAP/TD VACCINES (2 - T d or Tdap) 01/29/2024 01/28/2014 INFLUENZA VACCINE (#1) 2024 , 12/12/2022, 12/12/2022, Additional history exists Pre-Diabetes and Diabetes Screening 03/27/2026 03/27/2023, 09/17/2021, 02/11/2020, Additional history exists COLORECTAL SCREENING 09/10/2028 09/11/2023, 09/11/2023, 05/12/2019, Additional history exists ZOSTER VACCINE Completed 06/01/2019, 11/24, 03/26/2018 [place] Preventative Visit/Annual Wellness Visit Completed 09/02/2024, 04/15/2023, 12/25/2022, Additional history exists Procedures Procedure Name Priority Date/Time Associated Diagnosis Comments COLONOSCOPY REPORT 09/11/2023 2: 26 PM CDT HEMOGLOBIN A1C Routine 03/27/2023 9:16 AM COMMODITY BUYER Prediabetes History of malignant neoplasm of large intestine Chronic diarrhea Anemia, unspecified type Screening for prostate cancer from Last 3 Months or Most Recently Relevant to Health Maintenance Results * COLONOSCOPY REPORT (09/11/2023 2:26 PM CDT) Narrative Procedure Note Reid Obrien DO - 09/11/2023 2:26 PM CDT [facility] GI Patient Name: Dimas Prado Procedure Date: 09/11/2023 Date of : 1965 Admit Type: Outpatient Age: 57 Attending MD: Reid Obrien DO, Procedure: Colonoscopy Providers: Reid Obrien DO Referring MD: Coleman Montero MD Medicines: Fentanyl 100 micrograms IV, Midazolam 5 mg IV Complications: No immediate complications. Procedure: After I obtained informed consent, the scope was passed under direct vision. Throughout the procedure, the patient's blood pressure, pulse, and oxygen saturations were monitored continuously. The Colonoscope was introduced through the anus and advanced to the ileocolonic anastomosis. The colonoscopy was performed without difficulty. The patient tolerated the procedure well. The quality of the bowel preparation was excellent. Estimated Blood Loss: Estimated blood loss: none. Findings: There was evidence of a prior end-to-side ileo-colonic anastomosis in the ascending colon. This was patent and was characterized by healthy appearing mucosa. Moderate Sedation: Moderate (conscious) sedation was administered by the nurse and supervised by the endoscopist. The following parameters were monitored: oxygen saturation, heart rate, blood pressure, respiratory rate, EKG, adequacy of pulmonary ventilation, and response to care. Total physician intraservice time was 15 minutes. Impression: - Patent end-to-side ileo-colonic anastomosis, characterized by healthy appearing mucosa. - No specimens collected. Recommendation: - Patient has a contact number available for emergencies. The signs and symptoms of potential delayed complications were discussed with the patient. Return to normal activities tomorrow. Written discharge instructions were provided to the patient. - Resume previous diet. - Continue present medications. - Repeat colonoscopy in 5 years for surveillance. Reid Obrien DO 09/11/2023 2:26:22 PM Number of Addenda: 0 Note Initiated On: 09/11/2023 2:02 PM Scope Withdrawal Time 0 hours 6 minutes 41 seconds Scope In: 2:10:08 PM Scope Out: 2:20:22 PM [address] [place], [place] us Reid Obrien DO GI PROCEDURE ORDERABLES Final Result * HEMOGLOBIN A1C (03/27/2023 9:16 AM COMMODITY BUYER) HEMOGLOBIN A1C 5.4 <5.7 % of total Hgb [facility] Comment: For the purpose of screening for the presence of diabetes: <5.7% Consistent with the absence of diabetes 5.7-6.4% Consistent with increased risk for diabetes (prediabetes) > or =6.5% Consistent with diabetes This assay result is consistent with a decreased risk of diabetes. Currently, no consensus exists regarding use of hemoglobin A1c for diagnosis of diabetes in children. According to [place] Diabetes Association (ADA) guidelines, hemoglobin A1c <7.0% represents optimal control in non- diabetic patients. Different metrics may apply to specific patient populations. Standards of Medical Care in Diabetes(ADA). ESTIMATED AVERAGE GLUCOSE (MG/DL) 108 mg/dL [facility] ESTIMATED AVERAGE GLUCOSE (MMOL/L) 6.0 mmol/L [facility] Comment: HbA1c performed on Provasculon platform. Test Performed at: [facility] [id number] [id number] Byron Tineo MD Blood 03/27/2023 9:16 AM COMMODITY BUYER 03/28/2023 9:47 AM COMMODITY BUYER [place] [facility] CHEMISTRY ORDERABLES Final Result [facility] [phone] [facility] [id number] [phone] from Last 3 Months or Most Recently Relevant to Health Maintenance Insurance AENA O [facility] Address: [facility] [id number] [place] [id number] Advance Directives For more information, please contact: [phone] * Full Code (Latest Code Status on File) Date Activated Date Inactivated Comments 09/11/2023 1:35 PM 09/11/2023 5:27 PM Care Teams Optician Manager Relationship Specialty Start Date End Date Bassam Padilla MD [address] [place] [phone] PCP - General Family Practice 10/15/23
--- OUTSIDE RECORDS SUMMARY | 2024-09-02 16:58 | XMS_ITS ---
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 Past Treatment and Therapy Plans ONCOLOGY TREATMENT Plan Name Start Date Discontinue Date Treatment Medications Discontinue Reason Plan Provider Cycles OP ONC COLON_F OLFOXM 4 09/30/2013 FLUOROURACIL FOR AMBULATORY HOME INFUSIONfluoruracil (5-FU) injectable syringeleucovorin (WELLCOVORIN) IVPBoxaliplatin (ELOXATIN) IVPB Not Tolerated Gideon Villarreal MD 7 of 7 cycles started Lifetime Dose Tracking * Chemical Lifetime Dose Automatic Entry Manual Entr y Effective Dose 15.6 mSv 15.6 mSv 0 mSv Total DLP 1,384 DLP 1,384 DLP 0 DLP CTDIvol Max 13.7 mGy 13.7 mGy 0 mGy CTDIvol Min 12.8 mGy 12.8 mGy 0 mGy Resolved Problems Problem Noted Date Diagnosed [...]
[2024-09-02 17:15] LABS: Hematocrit 42.7 % (37-53); Hemoglobin 13.60 g/dL (11.27-16.99); Mean Corpuscular HGB Conc 31.9 g/dL (30-55); Mean Corpuscular Hemoglobin 32.5 pg (27-33); Mean Corpuscular Volume 101.9 fl (82-101); Nucleated Red Blood Cells % 0 %; Platelet Count 256 10^3/cmm (157-399); Red Blood Count 4.19 10^6/uL (3.85-5.65); White Blood Count 6.36 10^3/uL (3.29-11.43)
[2024-09-02 17:28] LABS: Glucose Urine UA Negative (Normal); Nitrate Urine Negative (Negative); Specific Gravity, Urine 1.021 (1.005-1.030)
[2024-09-02 17:32] LABS: Lactic Sepsis W/Reflex 1.0 mmol/L (0.5-2.2)
[2024-09-02 17:42] LABS: Alanine Aminotransferase 15 U/L (0-41); Albumin Level 4.1 g/dL (3.5-5.2); Alkaline Phosphatase 71 U/L (40-130); Anion Gap 13.5 (5-19); Aspartate Amino Transferase 17 U/L (0-40); Blood Urea Nitrogen 16 mg/dL (6-20); Calcium 8.7 mg/dL (8.5-10.5); Carbon Dioxide 27 mmol/L (22-29); Chloride 104 mmol/L (98-107); Creatinine Clr Calc Pharmacy 130.9407; Globulin 2.9 g/dL (1.3-4.6); Glucose 84 mg/dL (65-115); Lipase 28 U/L (13-60); NT Pro B Type Natriuretic Pept 55 pg/mL (0-125); Osmolality Calculated 290 mOsm/kg (285-295); Potassium 4.5 mmol/L (3.5-5.1); Sodium 140 mmol/L (136-145); Total Protein 7.0 g/dL (6.6-8.7)
--- NOTE | 2024-09-02 18:29 | CTR_ITS ---
PROCEDURE INFORMATION: Exam: CT Abdomen And Pelvis With Contrast Exam date and time: 09/02/2024 7:08 PM Age: 58 years old Clinical indication: Abdominal pain; Generalized; Prior surgery; Surgery date: 6+ months; Surgery type: Colon with colon CA chemo/radiation >10 yrs TECHNIQUE: Imaging protocol: Computed tomography of the abdomen and pelvis with contrast. Radiation optimization: All CT scans at this facility use at least one of these dose optimization techniques: automated exposure control; mA and/or kV adjustment per patient size (includes targeted exams where dose is matched to clinical indication); or iterative reconstruction. Contrast material: OMNIPAQUE 350; Contrast volume: 100 ml; Contrast route: INTRAVENOUS (IV); COMPARISON: No relevant prior studies available. RADIATION DOSE METRICS: Total DLP (mGy-cm): 706.35 FINDINGS: Liver: A few punctate hypodense liver lesions are too small to characterize, statistically likely due to benign etiology. Gallbladder and biliary ducts: Normal. No calcified stones. No ductal dilation. Pancreas: Normal. No ductal dilation. Spleen: Normal. No splenomegaly. Adrenal glands: Normal. No mass. Kidneys and ureters: Bilocular cyst versus 2 adjacent exophytic cyst in the upper pole of the right kidney collectively up to 4.8 x 2.6 x 3.6 cm, without suspicious features on CT. Additional subcentimeter right and left renal lesions X 2 are too small to characterize but statistically likely due to additional cysts. Stomach and bowel: A [id number] hernia up to 10.8 x 0.5 x 5.6 cm through a 3 cm neck in the left periumbilical/epigastric anterior abdominal wall to the left of midline, containing nonobstructed loop of small bowel. Additional smaller hernia in the in the adjacent and superior to the other hernia measures up to 7 x 5 x 4 x 3.6 cm through a 2.2 cm neck, containing a mildly dilated and thickened bowel loops with relative transition of the neck of the hernia (series 3, image 35). Moderate retained stool in the rectum and colon. Scattered colonic diverticuli . Anastomotic sutures noted in the right colon suggestive of right hemicolectomy and ileotransverse anastomosis Appendix: No evidence of appendicitis. Intraperitoneal space: Unremarkable. No free air. No significant fluid collection. Vasculature: Unremarkable. No abdominal aortic aneurysm. Lymph nodes: Unremarkable. No enlarged lymph nodes. Urinary bladder: Mild wall thickening is nonspecific. Reproductive: Unremarkable as visualized. Bones/joints: Bilateral hip arthropathy bilateral L5 pars defects with grade 1 anterolisthesis of L5 over S1. Moderate disc space narrowing moderate degenerative endplate and facet spondylosis at lower lumbar and lower thoracic spine. Soft tissues: Unremarkable. CT/CT abdomen pelvis w con* [id number] IMPRESSION: 1. Left paramedian epigastric ventral hernias X 2, the smaller more cephalad hernia contains mildly thickened dilated small bowel loop with relative narrowing at the hernial orifice somewhat suspicious for possible incarceration/strangulation, clinical correlation recommended. 2. Moderate constipation. 3. Other chronic degenerative and postsurgical findings detailed above. COMMENTS: Consistent with the [place] [employer]'s Incidental Findings Committee white paper (J Am Sarah Radiol 2018): Any incidental renal lesion less than 1 cm or classified as too small to characterize, or any incidental cystic renal lesion characterized as simple-appearing, is likely benign. No follow-up imaging is recommended for these lesions per consensus recommendations based on imaging criteria.
--- NOTE | 2024-09-02 18:48 | W.ED.ABDPA2 ---
HPI - Abdominal Pain General: Chief Complaint: Abdominal Pain Stated Complaint: left side abdominal swelling Time Seen by Provider: 09/02/24 18:27 History of Present Illness: 58-year-old man who presents emergency room with left lower quadrant abdominal pain. He has a hernia that has been there for some time but he says its become more swollen and more painful. He said it never reduces. No redness. I do feel any obvious bowel. No nausea or vomiting. Still with normal bowel movements. He says he was in [place] for a few months and was allowed medical care in now that he is out he needs to get it checked out and its become worse Related Data Allergies Allergy/AdvReac Type Severity Reaction Status Date / Time ibuprofen Allergy ADR-Seizure Verified 09/02/24 16:58 Review of Systems Narrative: Constitutional symptoms: Negative except as documented in HPI. Skin symptoms: Negative except as documented in HPI. Eye symptoms: Negative except as documented in HPI. ENMT symptoms: Negative except as documented in HPI. Respiratory symptoms: Negative except as documented in HPI. Cardiovascular symptoms: Negative except as documented in HPI. Gastrointestinal symptoms: Negative except as documented in HPI. Genitourinary symptoms: Negative except as documented in HPI. Musculoskeletal symptoms: Negative except as documented in HPI. Neurologic symptoms: Negative except as documented in HPI. Psychiatric symptoms: Negative except as documented in HPI. Endocrine symptoms: Negative except as documented in HPI. Physical Exam Narrative: EXAM NARRATIVE: General: Alert, no acute distress. Skin: Warm, dry. Head: Normocephalic, atraumatic. Neck: Supple, trachea midline. Eye: Extraocular movements are intact. Ears, nose, mouth and throat: mucosa moist. Cardiovascular: Regular, Normal peripheral perfusion. Respiratory: Lungs are clear to auscultation, respirations are non-labored, breath sounds are equal, Symmetrical chest wall expansion. Gastrointestinal: Soft, there is a left-sided mid abdominal anterior wall hernia. Tender to palpation. Appears like it should be reducible though. Musculoskeletal: Normal ROM, no deformity. Neurological: Alert and oriented, No focal neurological deficit observed. Psychiatric: Cooperative, appropriate mood & affect. Course Vital Signs: Vital signs: Vital Signs Temperature 98.0 F 09/02/24 16:54 Pulse Rate 68 09/02/24 20:48 Respiratory Rate 16 09/02/24 20:48 Blood Pressure 135/74 09/02/24 20:48 Pulse Oximetry 100 09/02/24 20:07 Oxygen Delivery Me thod Nasal Cannula 09/02/24 20:48 Oxygen Flow Rate 4 09/02/24 20:07 MDM - Abdominal Pain Medical Decision Making Medical decision making: Differential diagnosis including but not limited to and based on the above HPI, review of systems and physical exam: In this person with a hernia that is chronic but with worse pain would have concern for bowel obstruction so basic lab work and a CT were ordered. Orders placed to evaluate differential diagnosis based on the above differential, HPI and physical exam Lab Review: Laboratory results were reviewed and interpreted by myself the emergency room physician. No leukocytosis. No anemia. No renal failure. Urinalysis is negative for infection. CT of the abdomen and pelvis: There are 2 defects in the ventral wall. The inferior 1 has a 2 cm opening with bowel contained within. Some concern for possible strangulation. Lab work is not consistent with strangulation. I attempted reduction without sedation and patient did not tolerate, however I did manage to reduce part of the hernia. Consultation: I spoke with Dr. Gregorio who is on-call for general surgery who evaluated the patient with me and assisted in reducing hernia. I provided conscious sedation with propofol. 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 Procedural sedation Time: 2029 Confirmed: Patient and procedure correct. Consent: Consent: The risks and benefits of monitored anesthesia care, including the risk of aspiration, nausea/vomiting and the risks of not performing the procedure, including severe pain and inability to complete the procedure, were all discussed with the patient. The alternatives of performing the procedure, including local anesthesia and IV analgesia, also discussed. The patient has a ride home available Indication: Closed reduction. Monitoring: Cardiac, blood pressure, continuous pulse oximetry. Preparation: Suction, IV access, Constant attendance, Supplemental oxygen. ASA Class: I- healthy patient. No significant family history of sedation complications See ER physician note for summary of the patient's present medication list and for drug allergy and intolerance history Physical exam: Airway: appears normal, Heart: regular rate and rhythm, Breath sounds: equal. Pre sedation vital signs: See nurse's notes. Procedural sedation: 100 mg IV propofol. . Post sedation vital signs: See nurse's notes. Patient tolerated: Well. Complications: The patient was recovered from the sedation without complication or incident. Post sedation condition: Patient returned to pre-sedation level of awareness. The monitoring was discontinued at this time. Performed by: Self. Notes: Pt attended by independent trained observer time of sedation was 15 minutes. . I reviewed the patient's medical record. Reexamination: Patient has awakened from sedation and hernia has reduced. He expresses understanding of things to look for for follow-up. Assessment and plan: Incarcerated hernia ?Hernia reduced. Patient discharged. - Discharged home - Discussed plan with patient. Answered any questions. - Evaluation and treatment of this problem were appropriate in the emergency setting. Lab Data 09/02/24 17:05 09/02/24 17:05 Labs/Radiology: Radiology Impressions Abdomen/Pelvis CT 09/02/24 18:29 IMPRESSION: 1. Left paramedian epigastric ventral hernias X 2, the smaller more cephalad hernia contains mildly thickened dilated small bowel loop with relative narrowing at the hernial orifice somewhat suspicious for possible incarceration/strangulation, clinical correlation recommended. 2. Moderate constipation. 3. Other chronic degenerative and postsurgical findings detailed above. COMMENTS: Consistent with the [employer]'s Incidental Findings Committee white paper (J Am Sarah Radiol 2018): Any incidental renal lesion less than 1 cm or classified as too small to characterize, or any incidental cystic renal lesion characterized as simple-appearing, is likely benign. No follow-up imaging is recommended for these lesions per consensus recommendations based on imaging criteria. ADDENDUM: 09/02/242008 COMMENT: THIS REPORT CONTAINS FINDINGS THAT MAY BE CRITICAL TO PATIENT CARE. The exam findings were verbally communicated by me to Dr. Molina via telephone conference at 8:05 PM CDT on 09/02/2024. The findings were acknowledged and understood. Laboratory Results WBC 6.36 10^3/uL (3.29-11.43) 09/02/24 17:05 RBC 4.19 10^6/uL (3.85-5.65) 09/02/24 17:05 Hgb 13.60 g/dL (11.27-16.99) 09/02/24 17:05 Hct 42.7 % (37-53) 09/02/24 17:05 MCV 101.9 fl (82-101) H 09/02/24 17:05 MCH 32.5 pg (27-33) 09/02/24 17:05 MCHC 31.9 g/dL (30-55) 09/02/24 17:05 RDW 13.6 % (12.1-15.1) 09/02/24 17:05 Plt Count 256 10^3/cmm (157-399) 09/02/24 17:05 MPV 8.7 fL (7.4-10.4) 09/02/24 17:05 Neut % (Auto) 53.2 % 09/02/24 17:05 Lymph % (Auto) 28.0 % 09/02/24 17:05 [place] % (Auto) 16.0 % 09/02/24 17:05 Eos % (Auto) 1.7 % 09/02/24 17:05 Baso % (Auto) 0.8 % 09/02/24 17:05 Neut # (Auto) 3.38 10^3/uL (1.8-7.7) 09/02/24 17:05 Lymph # (Auto) 1.8 10^3/uL (0.8-4.8) 09/02/24 17:05 [place] # (Auto) 1.0 10^3/uL (0.2-0.9) H 09/02/24 17:05 Eos # (Auto) 0.1 10^3/uL (0.0-0.8) 09/02/24 17:05 Baso # (Auto) 0.1 10^3/uL (0.0-0.1) 09/02/24 17:05 Nucleated RBC % (auto) 0 % 09/02/24 17:05 Nucleated RBCs # 0.0 /100WBC 09/02/24 17:05 Sodium 140 mmol/L (136-145) 09/02/24 17:05 Potassium 4.5 mmol/L (3.5-5.1) 09/02/24 17:05 Chloride 104 mmol/L (98-107) 09/02/24 17:05 Carbon Dioxide 27 mmol/L (22-29) 09/02/24 17:05 Anion Gap 13.5 (5-19) 09/02/24 17:05 BUN 16 mg/dL (6-20) 09/02/24 17:05 Creatinine 0.7 mg/dL (0.7-1.2) 09/02/24 17:05 GFR Calculation 116.7 mL/min (90-130) 09/02/24 17:05 Glucose 84 mg/dL (65-115) 09/02/24 17:05 Calculated Osmolality 290 mOsm/kg (285-295) 09/02/24 17:05 Lactic Acid 1.0 mmol/L (0.5-2.2) 09/02/24 17:05 Calcium 8.7 mg/dL (8.5-10.5) 09/02/24 17:05 Total Bilirubin 0.3 mg/dL (0.15-1.2) 09/02/24 17:05 AST 17 U/L (0-40) 09/02/24 17:05 ALT 15 U/L (0-41) 09/02/24 17:05 Alkaline Phosphatase 71 U/L (40-130) 09/02/24 17:05 C-Reactive Protein 3.4 mg/L (0.0-4.9) 09/02/24 17:05 NT-Pro-B Natriuret Pep 55 pg/mL (0-125) 09/02/24 17:05 Total Protein 7.0 g/dL (6.6-8.7) 09/02/24 17:05 Albumin 4.1 g/dL (3.5-5.2) 09/02/24 17:05 Globulin 2.9 g/dL (1.3-4.6) 09/02/24 17:05 Lipase 28 U/L (13-60) 09/02/24 17:05 Urine Color Yellow (Yellow) 09/02/24 17:05 Urine Appearance Clear (CLEAR) 09/02/24 17:05 Urine pH 7.0 (5-7) 09/02/24 17:05 Ur Specific [place] 1.021 (1.005-1.030) 09/02/24 17:05 Urine Protein Negative (Negative) 09/02/24 17:05 Urine Glucose (UA) Negative (Normal) 09/02/24 17:05 Urine Ketones Negative (Negative) 09/02/24 17:05 Urine Blood Negative (Negative) 09/02/24 17:05 Urine Nitrate Negative (Negative) 09/02/24 17:05 Urine Bilirubin Negative (Negative) 09/02/24 17:05 Urine Urobilinogen 1.0 mg/dL (Negative) 09/02/24 17:05 Ur Leukocyte Esterase Negative (Negative) 09/02/24 17:05 Urine RBC 3-5 /hpf (0-2) 09/02/24 17:05 Urine WBC 0-5 /hpf (0-5) 09/02/24 17:05 Ur Squamous Epith Cells 0-5 /hpf (0-5) 09/02/24 17:05 Amorphous Sediment Not Reportable 09/02/24 17:05 Urine Bacteria None seen /hpf (NONE) 09/02/24 17:05 Hyaline Casts 0-4 /lpf H 09/02/24 17:05 All radiology interpretation(s) finalized by discharge Discharge Plan Discharge Patient Disposition: Home Clinical Impression: Ventral hernia Condition: Stable Discharge Orders: Discharge ED (Routine); Ordered 09/02/24 Ordered By: Alba Sommers Referrals: Timi Arvizu MD [Physician, General Surgery] Referral Note: Please call general surgery clinic and set up an appointment for outpatient repair of this hernia. Coleman Montero [Primary Care Provider, Family Practice] Discharge Diet: Usual diet Discharge Activity: Increase activity as tolerated Patient Instructions: Ventral Hernia (ED), Opioid Safety, Pain Management, Patient Portal & Rodo Instructions Activity Restrictions/Additional Instructions: If you develop worsening symptoms including hardening redness, worst pain, nausea vomiting or if you stop having bowel movements please return to the emergency room. These would all be concerning for a strangulated hernia Thank you for choosing [facility] for your healthcare needs today. You have been screened and evaluated and felt safe for discharge. Health conditions do change or evolve sometimes and as such it is important that you follow up with your Primary Doctor to be re checked, 3-5 days is a general good time frame for follow up. You are always welcome to return to the ED for re assessment if your symptoms are worsening or you have new concerns Print Language: Tajik Coding Level of Care Code ED Veterinary Microbiologist for Willie Brown
[2024-09-02] MEDS: iohexol 350 mg/mL 500 mL Btl (per mL) IV (19:11)
[2024-09-02] MEDS: ondansetron 2 mg/ML SDV 2 mL 4 MG IVP (19:21)
--- NOTE | 2024-09-02 20:07 | PC.NURSE ---
pt placed on 4L NC prior to sedation. Pt voiced understanding. Informed consent signed and placed in folder. RT notified and aware. Pt has 18g IV right AC patent. Pt room has suction set up.
--- NOTE | 2024-09-02 20:49 | PC.NURSE ---
RN and RT present upon conscious sedation- 2026 - prior to start HR 68 98% on 2 L NC 135/74 2027- Propofol [address] Sommers 2028- Propofol [address] Sommers 2029 patient sedated HR 72 95% 2 L NC 112/75 2036 HR 69 97% 2 L NC 122/73 2044 patient awake, patent airway, drowsy from sedation. ANTONIO Bah to monitor post sedation.
[2024-09-02] MEDS: propofol 10 mg/mL SDV 20 mL 100 MG IVP (20:50)
--- NOTE | 2024-09-02 20:58 | PM.CONSULT ---
Providers/Reason For Consult Consulting Physician/Specialty*: Alana Gregorio, DO/General Surgery Reason for Consult*: Abdominal wall hernia Requesting Physician: Alba Sommers Primary Care Provider: Coleman Montero History of Present Illness History of Present Illness Dimas Prado is a 58 year old male who came into the ED complaining of abdominal pain and worsened hernia. He has had this abdominal wall hernia for 1 year, but he stated that it has become more swollen and painful. He was vague on the time period for this worsening. Dr. Sommers partially manually reduced the hernia. Dr. Sommers contacted me to asses the hernia and help him reduce it further. At the time of my exam, the patient stated that he has a bowel movement every day and sometimes more often. He denied severe abdominal pain, redness or firmness at the hernia site, nausea, vomiting, or abdominal distension. He kept saying that he does not have gastro doc or a primary doc anymore, and said that he was supposed to see a surgeon in [place] , but that he has not yet seen them. Review of Systems General: Reports: 10 or more systems reviewed and unremarkable except in HPI and below Card: Denies: chest pain or palpitations Resp: Denies: dyspnea or pain on inspiration GI: Denies: nausea, vomiting, constipation, bloating or change in bowel habits Medications/Allergies Allergies Allergy/AdvReac Type Severity Reaction Status Date / Time ibuprofen Allergy ADR-Seizure Verified 09/02/24 16:58 Vitals/I&O/Wt Last Vital Signs Temp 98.0 F 09/02/24 16:54 Pulse 68 09/02/24 20:48 Resp 16 09/02/24 20:48 BP 135/74 09/02/24 20:48 Pulse Ox 100 09/02/24 20:07 O2 Del Method Nasal Cannula 09/02/24 20:48 O2 Flow Rate 4 09/02/24 20:07 Weight last 48 hrs Weight 184 lb Physical Exam Const: COMMON NORMALS: no acute distress, patient oriented x3 and alert Chest: COMMONS NORMALS: normal inspection of the chest CHEST: Yes Symmetrical chest wall rise Resp: COMMON NORMALS: normal respiratory effort and No use of accessory muscles GI: COMMON NORMALS: Normal to inspection, nondistended, normoactive bowel sounds present OTHER: Just to the left of midline just superior to the umbilicus and inferior to the umbilicus, there are three palpable abdominal wall defects. Prior to reduction, there were a few soft palpable hernia contents, however it was not firm, not taught, not edematous, and there was no overlying erythema. After reduction, the hernia defects were palpable, the abdominal wall was soft, non-tender, nonerythematous, and without 'bulges', indicating that there was no longer any incarcerated bowel (as seen on CT). Neuro: COMMON NORMALS: patient oriented x3 SENSORIUM/ORIENTATION: Yes alert Data 09/02/24 17:05 09/02/24 17:05 CT Abd/Pel: My impression: There is a guinean cheese defect with at least three hernia defects (at site of a previous laparotomy). The two larger hernia necks (just left of the level of the umbilicus) are approx. 3 cm in diameter and contain bowel. There are no previous CT abd/pelvis' to make a comparison. Per history the patient has had these hernias for over 1 year. Radiologist's impression: IMPRESSION: 1. Left paramedian epigastric ventral hernias X 2, the smaller more cephalad hernia contains mildly thickened dilated small bowel loop with relative narrowing at the hernial orifice somewhat suspicious for possible incarceration/strangulation, clinical correlation recommended. 2. Moderate constipation. 3. Other chronic degenerative and postsurgical findings detailed above. A&P Assessment and plan 1. Ventral hernia: See my impression of CT and physical exam findings. Plan: Noted that lab work, including white blood cell count and lactate are within normal limits. The patient is hemodynamically normal and afebrile. 1. Ventral hernias were reduced manually at bedside under sedation provided by ED physician, Dr. Sommers. 2. Patient counseled with strict return to ED precautions - including but not limited to nausea, vomiting, abdominal distension, severe abdominal pain, lack of bowel movements (suggestive of bowel obstruction), firmness/hardness to the hernias, swelling, redness overlying the hernia, fever, chills. Although I was able to completely reduce the hernia's, the risks of incarceration and/or strangulation were discussed with the patient in detail. 3. It was discussed, that if the patient does not return to the ED if any of these things happen, there is a possibility of tissue . 4. I instructed the patient that it is imperative that he call the general surgery office tomorrow morning to schedule a clinic visit. PDMP PDMP Reviewed: Not Reviewed Coding Level of Care Code Acute Code for Chg Fwd Diagnoses Ventral hernia K43.9
--- NOTE | 2024-09-02 21:30 | PC.NURSE ---
pt return instructions went over with pt verbally, pt voiced understanding.
--- NOTE | 2024-09-02 21:44 | P.PCN_ITS ---
Procedure/Consent Consent: Additional Consent Information: Prior to the procedure, the procedure and what it would entail were discussed with the patient in detail, including risks, benefits, and potential alternatives. It was discussed with the patient that risks would include, but were not limited to pain, inability to complete the procedure, and potential injury. All questions were answered and the patient wished to proceed. Anesthesia risks were discussed with the patient by Dr. Sommers. Procedure Narrative: Dr. Sommers administered propofol, while I manually reduced the abdominal wall/ventral hernias with gentle manual abdominal pressure. The patient's vital signs were monitored throughout the procedure and he was observed while the sedation wore off. Additionally, he had 5 L supplemental oxygen via nasal cannula throughout the procedure and following the procedure. Just to the left of midline just superior to the umbilicus and inferior to the umbilicus, there are three palpable abdominal wall defects. Chronic long- standing hernia per patient history. Prior to reduction, there was a small amount of soft-palpable hernia contents remaining, however the hernia contents were not firm, not taut or tense, not edematous, and there was no overlying erythema. After reduction, the hernia defects were palpable, the abdominal wall was soft, non-tender, nonerythematous, and without 'bulges', indicating that there was no longer any incarcerated bowel (as seen on CT). Post-procedure plan: Patient counseled with strict return to ED precautions - including but not limited to nausea, vomiting, abdominal distension, severe abdominal pain, lack of bowel movements (suggestive of bowel obstruction), firmness/hardness to the hernias, swelling, redness overlying the hernia, fever, chills. Although I was able to completely reduce the hernia's, the risks of incarceration and/or strangulation were discussed with the patient in detail. Additionally, in this case he would likely need an emergency surgery. It was discussed, that if the patient does not return to the ED if any of these things happen, there is a possibility of tissue . cy surgery. I instructed the patient that it is imperative that he call the general surgery office tomorrow morning to schedule a clinic visit.
--- NOTE | 2024-09-03 19:52 | P.HP_ITS ---
Providers/Chief Complaint 2 Admitting Physician: Alana Gregorio DO Primary Care Provider: Coleman Montero Chief Complaint: left side abdominal swelling History of Present Illness Dimas Prado is a 58 year old male I saw in consultation yesterday for ventral hernia. See yesterday's consultation note. The ventral hernias were reduced at bedside yesterday and the patient was discharged with strict return to ED instructions and plans for outpatient followup for possible elective ventral hernia repair. He came back today with worsened abdominal pain, worsened 'swelling', nausea, vomiting and lack of bowel movements. WBC is elevated at 14.15. Today's CT demostrates: IMPRESSION: 1. Mechanical small bowel obstruction caused by a periumbilical hernia which contains small bowel 2. A benign renal cyst or cysts have been detected. No further follow-up imaging is required. The patient does not take any blood thinning medications. He is a current every day smoker. Review of Systems 2 General: Reports: 10 or more systems reviewed and unremarkable except in HPI and below Const: Reports: change in appetite; Denies: fever(s), chills or body aches Card: Denies: chest pain or palpitations Resp: Denies: dyspnea, productive cough or wheezing GI: Reports: abdominal pain, nausea, vomiting and constipation Medications/Allergies Allergies Allergy/AdvReac Type Severity Reaction Status Date / Time ibuprofen Allergy ADR-Seizure Verified 09/02/24 16:58 Vitals/I&O/Wt Last Vital Signs Temp 98.0 F 09/02/24 16:54 Pulse 63 09/02/24 21:52 Resp 16 09/02/24 20:48 BP 116/73 09/02/24 21:52 Pulse Ox 97 09/02/24 21:52 O2 Del Method Room Air 09/02/24 21:29 O2 Flow Rate 4 09/02/24 20:07 Weight last 48 hrs Weight 184 lb Physical Exam 2 Const: COMMON NORMALS: no acute distress, patient oriented x3 and alert Chest: COMMONS NORMALS: normal inspection of the chest Resp: COMMON NORMALS: normal respiratory effort, No retractions and No use of accessory muscles GI: OTHER: Left of midline just superior to the umbilicus and inferior to the umbilicus, there are two 'bulges' that are firm, tender, and non-reducible (consistent with incarcerated ventral hernias). Data 09/02/24 17:05 07/10/25 17:05 A&P Assessment and plan 1. Ventral hernia: 2. Incarcerated ventral hernia: -- Plan for laparotomy, reduction and repair of incarcerated ventral hernias, possible bowel resection, possible ostomy creation, possible surgical drain placement, possible lysis of adhesions, possible mesh placement, and other procedures as indicated. Prior to the surgery, the surgery and what it would entail were discussed with the patient in detail, including the risks, benefits, and potential alternative treatment options. Risks included, but were not limited to infection, bleeding, injury to intraabdominal organs/bowel, hernia formation, hernia recurrence, mesh migration, mesh infection, postoperative abscess, need for placement of a surgical drain, need for further surgery or interventional radiology procedures, poor wound healing especially in the setting of smoking history, and heart or lung complications. All question were answered and the patient wished to proceed with surgery. 3. Bowel obstruction: 4. Leukocytosis: PDMP PDMP Reviewed: Not Reviewed Attestations 2 Medical Necessity Statement*: Major operation, monitoring of vital signs, IV fluids, antibiotics, management of possible post operative ileus and physical therapy. Coding Level of Care Code Acute Code for [facility] Diagnoses Ventral hernia K43.9 Incarcerated ventral hernia K43.6 Bowel obstruction K56.609 Leukocytosis D72.829
--- NOTE | 2024-09-04 00:48 | W.PM.BPON ---
Perop Dx: Bowel obstruction secondary to Incarcerate ventral hernias Postop DX: Same Procedure: Laparotomy Lysis of Adhesions Omentectomy Reduction of ventral hernias X3 Excision of hernia sacs Placement of 19 mm Flat Hira drain Placement of [place] wound Vac EBL: 200 cc Complications: None Postop plan: Transfer to med/surg following surgery 1. Leukocytosis: 2. Bowel obstruction: 3. Incarcerated ventral hernia: 4. Ventral hernia:
[2024-09-04 04:08] LABS: Hematocrit 39.9 % (37-53); Hemoglobin 13.10 g/dL (11.27-16.99); Mean Corpuscular HGB Conc 32.8 g/dL (30-55); Mean Corpuscular Hemoglobin 32.4 pg (27-33); Mean Corpuscular Volume 98.8 fl (82-101); Nucleated Red Blood Cells % 0 %; Platelet Count 258 10^3/cmm (157-399); Red Blood Count 4.04 10^6/uL (3.85-5.65); White Blood Count 9.97 10^3/uL (3.29-11.43)
[2024-09-04 04:44] LABS: Anion Gap 17.4 (5-19); Blood Urea Nitrogen 18 mg/dL (6-20); Calcium 7.6 mg/dL (8.5-10.5); Carbon Dioxide 21 mmol/L (22-29); Chloride 106 mmol/L (98-107); Creatinine Clr Calc Pharmacy 114.5731; Glucose 157 mg/dL (65-115); Osmolality Calculated 295 mOsm/kg (285-295); Potassium 4.4 mmol/L (3.5-5.1); Sodium 140 mmol/L (136-145)
--- NOTE | 2024-09-04 13:27 | W.PM.BPONFUL ---
Pathology: [] Implant(s): [] Tourniquet Time: [] IV Fluids: [] Urine Output: [] Anesthesia: [] Complications: [] Brief history/preop diagnosis: [] Full operative report: [] Condition: [] Dispostion: []
--- NOTE | 2024-09-04 13:29 | P.PN_ITS ---
Subjective 2 Subjective: The patient was seen and evaluated at bedside today. He denied nausea or vomiting. He he has not passed flatus or had a bowel movement. He does have moderate incisional pain. The patient stated that he is not very hungry, but that he would likely tolerate some clear liquids. The patient remains afebrile and hemodynamically normal, white blood cell count is 9.97 and hemoglobin is 13.1. He is not requiring any supplemental oxygen. Vitals/I&O/Wt Last Vital Signs Temp 98.0 F 09/02/24 16:54 Pulse 63 09/02/24 21:52 Resp 16 09/02/24 20:48 BP 116/73 09/02/24 21:52 Pulse Ox 97 09/02/24 21:52 O2 Del Method Room Air 09/02/24 21:29 O2 Flow Rate 4 09/02/24 20:07 Weight last 48 hrs Weight 184 lb Physical Exam 2 Const: COMMON NORMALS: no acute distress, patient oriented x3 and alert Resp: COMMON NORMALS: normal respiratory effort and No use of accessory muscles GI: COMMON NORMALS: Soft to palpation and non-tender PALPATION: Yes Soft to palpation OTHER: Incision has the dileep dressing in place with minor shadowing. The MAXINE drain bulb has serosanguineous fluid. The abdomen is nondistended. Neuro: COMMON NORMALS: patient oriented x3 SENSORIUM/ORIENTATION: Yes alert Data 09/04/24 03:19 09/04/24 03:19 A&P Assessment and plan 1. Incarcerated ventral hernia: Postop day #0: Laparotomy Lysis of Adhesions Omentectomy Reduction of ventral hernias X3 Excision of hernia sacs Placement of 19 mm Flat Maxine drain Placement of [place] wound Vac -- Advance to clear liquid diet as tolerated -- Await return of bowel function -- Ambulate 4 times daily -- Empty and record MAXINE drain, strip drainage tubing -- Discontinue Kern catheter -- As needed pain medications -- Appreciate assistance of hospitalist -- SCDs and subcu Lovenox -- Incentive spirometry 2. Leukocytosis: 3. Bowel obstruction: 4. Ventral hernia: PDMP PDMP Reviewed: Not Reviewed Attestations 2 Medical Necessity Statement*: Monitoring of vital signs, IV antibiotics, IV pain medications, case management and physical therapy. Coding Level of Care Code Acute Code for [facility] Diagnoses Incarcerated ventral hernia K43.6 Leukocytosis D72.829 Bowel obstruction K56.609 Ventral hernia K43.9
== END 2024-09-02 21:53 | disposition home or self-care (01) ==
PROVIDERS: Surgery; Emergency Provider Emergency Medicine; PCP Family Medicine
DX: K43.9 Ventral hernia without obstruction or gangrene (principal)
CPT/HCPCS: 36415; 74177; 80053; 81001; 83605; 83690; 83880; 85025; 86140; 96374; 96375; 99285; J1885; J2405; J2704

== ENCOUNTER 2024-09-03 14:28 | Inpatient (IN) | payer MEDICARE, SELFPAY ==
--- OUTSIDE RECORDS SUMMARY | 2024-09-02 11:00 | XMS_ITS | Encounter Summary ---
Author Organization [facility] Address [address] [place] [address] Care Team Providers Care Carbon Brushes Assembler Name Role Phone Bassam Padilla MD Primary Care Provider [phone] Reason for Referral * CT Scan (Urgent) - Pending Review Specialty Diagnoses / Procedures Referred By Jailene crooks Referred To Contact Diagnoses Incisional hernia, without obstruction or gangrene History of malignant neoplasm of large intestine Procedures CT ABDOMEN PELVIS W CONTRAST CT ABDOMEN PELVIS W CONTRAST CT ABDOMEN PELVIS W CONTRAST Bassam Padilla MD [address] [place] [phone] Phone: tel: fax: Referral ID Status Reason Start Date Expiration Date V isits Requested Visits Authorized [id number] Pending Review 09/02/2024 10/03/2025 1 1 * Eval and Treat (Routine) - Open Specialty Diagnoses / Procedures Referred By Jailene crooks Referred To Contact Surgery Diagnoses Incisional hernia, without obstruction or gangrene History of malignant neoplasm of large intestine Procedures MT OFFICE/OUTPATIENT ESTABLISHED MOD MDM 30 MIN MT OFFICE/OUTPATIENT NEW MODERATE MDM 45 MINUTES Bassam Padilla MD [address] [place] [phone] Phone: tel: fax: Referral ID Status Reason Start Date Expiration Date Visits Re quested Visits Authorized [id number] Open 09/02/2024 09/02/2025 1 1 Reason for Visit * Reason Comments Annual Wellness Visit (Medicare) Chronic Conditions Coordination Encounter Details Date Type Department Care Team (Late st Contact Info) Description 09/02/2024 11:00 AM CDT Office Visit [facility] [address] [address] Bassam Padilla MD [address] [place] [phone] Medicare annual wellness visit, subsequent (Primary Dx); Moderate episode of recurrent major depressive disorder; Mild intermittent asthma without complication; Tobacco use disorder; Allergy to bee sting; Chronic midline low back pain with bilateral sciatica; Incisional hernia, without obstruction or gangrene - upper midline to the left; History of malignant neoplasm of large intestine Social History Tobacco Use Types Packs/Day Years Used Date Smoking Tobacco: Every Day Cigarettes Passive Smoke Exposure: Current Smokeless Tobacco: Never Tobacco Cessation:Ready to Q uit: Not Asked; Counseling Given: Not Answered Alcohol Use Standard Drinks/Week Comments No 0 (1 standard drink = 0.6 oz pur e alcohol) Financial Resource Strain Answer Date R ecorded How hard is it for you to pa y for the very basics like food, housing, medical care, and heating? Hard 09/17/2021 Food Insecurity Answer Date Recorded In the past 12 months, have you worried that your food would run out before you had money to buy more? Often true 09/17/2021 In the past 12 months, did y ou run out of food and didn't have money to buy more? Often true 09/17/2021 Transportation Needs Answer Date Record ed In the past 12 months, has l ack of transportation kept you from medical appointments or from getting medications? Yes 09/17/2021 Lack of Transportation (Non-Medical) Not on file 09/17/2021 Feeling Safe Answer Date Recorded Are you in a relationship wi th someone who hurts you emotionally and/or physically? 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 Gender Identity Not on file Sexual Orientation Not on file documented as of this encounter Last Filed Vital Signs Vital Sign Reading Time Taken Comments Blood Pressure 112/60 09/02/2024 10:40 AM CDT Pulse 65 09/02/2024 10:40 AM CDT Temperature 36.6 C (97.8 F) 09/02/2024 10:40 AM CDT Respiratory Rate - - Oxygen Saturation 99% 09/02/2024 10:40 AM CDT Inhaled Oxygen Concentration - - Weight 86.7 kg (191 lb 3.2 oz) 09/02/2024 10:40 AM CDT Height 180.3 cm (5' 11 ) 09/02/2024 10:40 AM CDT Body Mass Index 26.67 09/02/2024 10:40 AM CDT documented in this encounter Patient Instructions * Attachments The following attachments cannot be sent through Care Everywhere. * Well Visit: 18 to 65 Years ([place]) * Low Back Pain: Exercises ([place]) documented in this encounter Progress Notes * Bassam Padilla MD - 09/02/2024 10:43 AM CDT Dimas Prado is a 58 y.o. male here today for his Medicare Annual Wellness Visit. Also due for Chronic Conditions Coordination. MEDICARE WELLNESS VISIT HEALTH RISK ASSESSMENT Completed by and reviewed with patient/caregiver. See Annual Wellness Visit HRA Flowsheet In general, how would you rate your health?: Fair (09/02/241031) Are you basically satisfied with your life? : Patient Refused (09/02/241031) MEDICAL RECORD REVIEWED AND UPDATED, INCLUDING: Demographics Current providers and suppliers: Patient Care Team: Bassam Padilla MD as PCP - General (Family Practice) Niya Mccormick FNP (Nurse Practitioner Family) Zehra Crowder FNP (Nurse Practitioner Family) Past Medical and Surgical History Family History Social History Allergies CURRENT MEDICATIONS REVIEWED AND RECONCILED acetaminophen Take 500 mg by mouth every 6 hours as needed. nicotine polacrilex by See Admin Instructions route every 2 hours as needed for Smoking Cessation. mirtazapine TAKE 1 TABLET(30 MG) BY MOUTH DAILY AT BEDTIME Combivent Respimat INHALE 1 PUFF BY MOUTH EVERY 6 HOURS NEEDED FOR SHORTNESS OF BREATH OR WHEEZING pregabalin TAKE 1 CAPSULE(150 MG) BY MOUTH THREE TIMES DAILY simethicone Chew one tablet after drinking first 1/2 of prep followed with 8 oz glass of water. Chew two tablets after drinking second 1/2 of prep followed with 8 oz glass of water. (Patient not taking: Reported on 09/02/2024) EPINEPHrine Administer per package directions only for severe allergic (anaphylactic) reaction withtrouble breathing. (Patient not taking: Reported on 09/02/2024) cholecalciferol Take 1 Capsule (50,000 Units) by mouth every 7 days. (Patient not taking: Reported on 09/02/2024) SUMAtriptan Take 1 Tablet (50 mg) by mouth 1 time daily as needed for Headaches. may repeat in 2 hours; max dose 100 mg in 24 hours (Patient not taking: Reported on 09/02/2024) In general, how often do you forget or decide not to take one or more of your medications?: Never (09/02/241031) EXAMINATION(MA may complete) BP 112/60 (BP Location: Left arm, Patient Position (BP): Sitting, BP Cuff Size: Adult) Pulse 65 Temp 97.8 ??F (36.6 ??C) (Temporal) Ht 5' 11 (1.803 m) Wt 86.7 kg (191 lb 3.2 oz) SpO2 99% BMI 26.67 kg/m?? Visual Acuity: Hearing: Have you been told by others you turn up your TV volume too high or that you have problems hearing?: No (09/02/241031) FUNCTIONAL ABILITY, FRAILTY Have you fallen one or more times in the past year?: Yes (09/02/241031) Patient denies needing help with any ADL's. Do you currently use any medical equipment, such as a cane, walker, wheelchair, or oxygen tank?: No(09/02/241031) SAFETY AND PHYSICAL ACTIVITY Do you fasten your seat belt when you are in the car?: Sometimes (09/02/241031) Do you feel safe at home?: Yes (09/02/241031) How many days a week do you do at least 10 - 15 minutes of some type of exercise or physical activity?: 2 - 3 days - education automatically filed to AVS (09/02/241031) RISK ASSESSMENT (QM) Depression Screen Positive: PHQ-2 score >= 3 or PHQ-9 score >= 9 PHQ-2 Total: 1 (09/02/2024 10:32 AM) PHQ-9 Total: 10 (09/02/2024 10:32 AM) DEPRESSION PLAN OF CARE His depression screen was positive. His antidepressant medication was reviewed How often do you feel angry? : Sometimes (09/02/241031) How often do you feel lonely?: Sometimes (09/02/241031) Any changes or new problems with your mental or emotional health, such as stress or anxiety?: Yes (09/02/241031) Management options discussed: coping/relaxation exercises Opioid Use Current Opioids: none on current medication list Cognitive Impairment Cognitive ability observed and assessed throughout the exam. Structured assessment: not indicated based on this assessment. . PREVENTIVE CARE GUIDELINES Written Screening Schedule for the next 5-10 years developed and provided to patient. Preventive Care Recommendations for AVERAGE Risk Adult Males > 65yo Measure USPSTF Recommendation PSA testing Men 55-69: individual decision based on review of potential benefits and harms. Men >70 not recommended Colon Cancer Screening Colonoscopy every 10 yrs or Fecal Occult Blood testing yearly ages 45-75 Abdominal Aortic Aneurysm Men 65 -75 who have ever smoked. Lung Cancer Screening Annual low-dose CT, adults 50 - 80 w/ >20 pack-year smoking hx who currently smoke or have quit w/in 15 yrs (*Medicare will not cover for >77 yo) Lipid Screening Identification of dyslipidemia and calculation of 10-year CVD event risk requires universal lipid screening in adults ages 40 - 75 Pre-diabetes/Diabetes Screening Adults 35-70 who are overweight or obese Hepatitis C Screening Adults 18-79 Immunizations COVID-19 Influenza Pneumococcal RSV Tdap/Td Zoster (Shingles) ADVANCE CARE PLANNING (optional) Do you have an Advance Directive (Living Will)?: No (09/02/241031) Primary Emergency Contact: Alba Wallace, Relation: Significant Other Is the person(s) listed above who you would want to be your trusted decision maker? Yes RISK FACTORS AND CONDITIONS FOR WHICH INTERVENTIONS ARE RECOMMENDED AND/OR UNDERWAY Are you currently on any kind of special diet? : No (09/02/241031) Do you have problems with your teeth or dentures?: Yes (09/02/241031) During the past 4 weeks, would you say you have had...: Severe pain (09/02/241031) Do you have any concerns about your sexual health?: No (09/02/241031) No new issues identified Tobacco Use EDUCATION/COUNSELING/REFERRAL(S) Exercise program and Tobacco cessation No orders of the defined types were placed in this encounter. Mr. Prado voiced understanding and agreement with the treatment plan. All questions were answered. Pxxbd-[id number]-[id number] provided to patient. ACUTE AND/OR CHRONIC ISSUES REQUIRING EVALUATION AND MANAGEMENT OUTSIDE THE WELLNESS VISIT (Provider only) See separate progress note below. Chief Complaint Patient presents with Annual Wellness Visit (Medicare) Chronic Conditions Coordination Patient history provided by patient. SUBJECTIVE: Dimas Prado is a 58 y.o. year-old male who presents to the clinic for Annual Wellness Visit (Medicare) and Chronic Conditions Coordination Patient is currently in drug rehab at [facility] for the next month. He is needing to get a few of his medications refilled. Patient reports he has a significant abdominal mass. It does reduce somewhat when lying down but has become more prominent and tender recently. No other acute concerns at this time. Review of Systems: All systems reviewed and negative otherwise as per HPI. Past Medical History: Past Medical, Surgical, & Social History Reviewed. Allergies & Medications Reviewed. Depression Screen Positive: PHQ-2 score >= 3 or PHQ-9 score >= 9 PHQ-2 Total: 1 (09/02/2024 10:32 AM) PHQ-9 Total: 10 (09/02/2024 10:32 AM) DEPRESSION PLAN OF CARE His depression screen was positive. His antidepressant medication was reviewed Fall Risk ASSESSMENT He has had only one fall without injury in the past year. TOBACCO/NICOTINE COUNSELING He was counseled to discontinue tobacco/nicotine use. OBJECTIVE: Physical Exam: BP 112/60 (BP Location: Left arm, Patient Position (BP): Sitting, BP Cuff Size: Adult) Pulse 65 Temp 97.8 ??F (36.6 ??C) (Temporal) Ht 5' 11 (1.803 m) Wt 86.7 kg (191 lb 3.2 oz) SpO2 99% BMI 26.67 kg/m?? Physical Exam Vitals reviewed. Constitutional: Appearance: Normal appearance. He is normal weight. HENT: Head: Normocephalic and atraumatic. Right Ear: External ear normal. Left Ear: External ear normal. Nose: Nose normal. Mouth/Throat: Mouth: Mucous membranes are moist. Eyes: Extraocular Movements: Extraocular movements intact. Conjunctiva/sclera: Conjunctivae normal. Cardiovascular: Rate and Rhythm: Normal rate and regular rhythm. Heart sounds: Normal heart sounds. Pulmonary: Effort: Pulmonary effort is normal. Breath sounds: Normal breath sounds. Abdominal: General: Bowel sounds are normal. Palpations: Abdomen is soft. There is mass. Tenderness: There is abdominal tenderness. Hernia: A hernia is present. Musculoskeletal: General: Normal range of motion. Cervical back: Normal range of motion and neck supple. Skin: General: Skin is warm. Neurological: General: No focal deficit present. Mental Status: He is alert and oriented to person, place, and time. Psychiatric: Mood and Affect: Mood normal. Behavior: Behavior normal. ASSESSMENT/PLAN: I have reviewed in detail the patient's available electronic medical record this date including past medical history, present medications, allergies, past surgical history, family history, social history, and review of systems. 1. Medicare annual wellness visit, subsequent (Primary) See separate medicare AWV note above. Age appropriate anticipatory guidance discuss, printed, and provided to patient. - CBC WITH DIFFERENTIAL - COMPREHENSIVE METABOLIC PANEL - LIPID PANEL 2. Moderate episode of recurrent major depressive disorder Recent labs reviewed. Lab Results Component Value Date TSH 2.93 03/27/2023 TSH 1.20 08/13/2019 Labs ordered today. Will discuss results with patient when available. Medications reviewed in the clinic today. Continue current medication regimen as prescribed. - mirtazapine (REMERON) 30 mg tablet; TAKE 1 TABLET(30 MG) BY MOUTH DAILY AT BEDTIME Dispense: 90 Tablet; Refill: 11 - TSH REFLEXIVE 3. Mild intermittent asthma without complication Medications reviewed in the clinic today. Stable. Continue current medication regimen as prescribed. - ipratropium-albuteroL (Combivent Respimat) 20-100 mcg/actuation Mist; INHALE 1 PUFF BY MOUTH EVERY 6 HOURS NEEDED FOR SHORTNESS OF BREATH OR WHEEZING Dispense: 4 Gram; Refill: 11 4. Tobacco use disorder Smoking cessation encouraged. Patient is currently in rehab for substance abuse. He is currently using a nicotine patch 5. Allergy to bee sting Clinically stable. Continue expectant management. - EPINEPHrine (EPIPEN) 0.3 mg/0.3 mL Auto-Injector; Administer per package directions only for severe allergic (anaphylactic) reaction with trouble breathing. Dispense: 1 Each; Refill: 2 6. Chronic midline low back pain with bilateral sciatica Recommend conservative management. Alternate heat and ice, 20 minutes each, as tolerated/needed. Brace with activity. Consider physical therapy if not improving. - pregabalin (LYRICA) 150 mg Capsule; Take 1 Capsule (150 mg) by mouth every 8 hours. Dispense: 90 Capsule; Refill: 5 7. Incisional hernia, without obstruction or gangrene - upper midline to the left 8. History of malignant neoplasm of large intestine Urgent referral for abdominal CT sent. Strict ER precautions provided. - AMB REFERRAL TO GENERAL SURGERY - CT ABDOMEN PELVIS W CONTRAST; Future Return precautions provided. Will follow-up in 6 months for CCC. Sooner if indicated. Patient verbalized understanding agreement plan. Bassam Padilla MD Portions of this note were created using [employer] Dictation software. Attempts were made to correct any mistakes prior to signing this note. There is always a possibility that words were not transcribed correctly. 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 [facility] Medicine [address] [phone] Niya Mccormick, [facility] [address] [phone] Scheduled Orders Name Type Priority Associated Diagnoses Orde r Schedule CT ABDOMEN PELVIS W CONTRAST Imaging Stat Incisional hernia, without obstruction or gangrene - upper midline to the left History of malignant neoplasm of large intestine 1 Occurrences starting 09/02/2024 until 09/02/2025 Scheduled Referrals Name Type Priority Associated Diagnoses Orde r Schedule AMB REFERRAL TO GENERAL SURGERY Outpatient Referral Routine Incisional hernia, without obstruction or gangrene - upper midline to the left History of malignant neoplasm of large intestine Ordered: 09/02/2024 documented as of this encounter Procedures Procedure Name Priority Date/Time Associated Diagnosis Comments TSH REFLEXIVE Routine 09/02/2024 11:12 AM CDT Moderate episode of recurrent major depressive disorder CBC WITH DIFFERENTIAL Routine 09/02/2024 11:12 AM CDT Medicare annual wellness visit, subsequent LIPID PANEL Routine 09/02/2024 11:12 AM CDT Medicare annual wellness visit, subsequent COMPREHENSIVE METABOLIC PANEL Routine 09/02/2024 11:12 AM CDT Medicare annual wellness visit, subsequent documented in this encounter Results * (ABNORMAL) CBC WITH DIFFERENTIAL (09/02/2024 11:12 AM CDT) WBC 6.1 3.8 - 10.8 Thousand/u L [facility] RBC 4.44 4.20 - 5.80 Million/uL [facility] HEMOGLOBIN 14.6 13.2 - 17.1 g/dL [facility] HEMATOCRIT 46.0 38.5 - 50.0 % [facility] MCV 103.6(H) 80.0 - 100.0 fL [facility] MCH 32.9 27.0 - 33.0 pg [facility] MCHC 31.7(L) 32.0 - 36.0 g/dL [facility] Comment: For adults, a slight decrease in the calculated MCHC value (in the range of 30 to 32 g/dL) is most likely not clinically significant; however, it should be interpreted with caution in correlation with other red cell parameters and the patient's clinical condition. RDW 13.0 11.0 - 15.0 % [facility] PLATELETS 282 140 - 400 Thousand/u L [facility] MPV 9.1 7.5 - 12.5 fL [facility] NEUTROPHIL ABSOLUTE 3,538 1,500 - 7,800 cells/uL [facility] LYMPHOCYTE ABSOLUTE 1,495 850 - 3,900 cells/uL [facility] MONOCYTE ABSOLUTE 854 200 - 950 cells/uL [facility] EOSINOPHIL ABSOLUTE 153 15 - 500 cells/uL [facility] BASOPHILS ABSOLUTE 61 0 - 200 cells/uL [facility] NEUTROPHIL 58 % [facility] LYMPHOCYTES 24.5 % [facility] MONOCYTE 14.0 % [facility] EOSINOPHILS 2.5 % [facility] BASOPHILS 1.0 % [facility] Comment: Test Performed at: [facility] [address] [place] [address] Byron Tineo MD Blood 09/02/2024 11:1 2 AM CDT 09/03/2024 1:02 AM CDT us Bassam Padilla MD HEMATOLOGY ORDERABLES Final Resu lt [facility] [phone] [facility] [address] [place] [address] * COMPREHENSIVE METABOLIC PANEL (09/02/2024 11:12 AM CDT) GLUCOSE 87 65 - 99 mg/dL [facility] Comment: Fasting reference interval BUN 17 7 - 25 mg/dL [facility] CREATININE 0.72 0.70 - 1.30 mg/dL [facility] GFR 107 > OR = 60 mL/min/1. 73m2 [facility] BUN/CREAT RATIO SEE NOTE: 6 - 22 (calc) [facility] Comment: Not Reported: BUN and Creatinine are within reference range. SODIUM 140 135 - 146 mmol/L [facility] POTASSIUM 4.7 3.5 - 5.3 mmol/L [facility] CHLORIDE 105 98 - 110 mmol/L [facility] CO2 27 20 - 32 mmol/L [facility] CALCIUM 8.9 8.6 - 10.3 mg/dL [facility] TOTAL PROTEIN 6.9 6.1 - 8.1 g/dL [facility] ALBUMIN 4.0 3.6 - 5.1 g/dL [facility] GLOBULIN 2.9 1.9 - 3.7 g/dL (calc) [facility] ALBUMIN/GLOBULIN RATIO 1.4 1.0 - 2.5 (calc) [facility] BILIRUBIN TOTAL 0.5 0.2 - 1.2 mg/dL [facility] ALKALINE PHOSPHATASE 63 35 - 144 U/L [facility] AST 15 10 - 35 U/L [facility] ALT 13 9 - 46 U/L [facility] Comment: Test Performed at: [facility] [address] [place] [address] Byron Tineo MD Blood 09/02/2024 11:1 2 AM CDT 09/03/2024 1:02 AM CDT us Bassam Padilla MD CHEMISTRY ORDERABLES Final Resul t [facility] [phone] [facility] [address] [place] [address] * (ABNORMAL) LIPID PANEL (09/02/2024 11:12 AM CDT) CHOLESTEROL 155 <200 mg/dL [facility] HDL 65 > OR = 40 mg/dL [facility] TRIGLYCERIDE 159(H) <150 mg/dL [facility] LDL CALCULATED 66 mg/dL (calc) [facility] Comment: Reference range: <100 Desirable range <100 mg/dL for primary prevention; <70 mg/dL for patients with CHD or diabetic patients with > or = 2 CHD risk factors. LDL-C is now calculated using the Aris-Mary Ann calculation, which is a validated novel method providing better accuracy than the Friedewald equation in the estimation of LDL-C. Aris SS et al. NAYE. 2013;310(19): 1167-5582 (http://education.Dada Room/faq/FKW637) CHOL/HDL RATIO 2.4 <5.0 (calc) [facility] NON-HDL CHOLESTEROL 90 <130 mg/dL (calc) [facility] Comment: For patients with diabetes plus 1 major ASCVD risk factor, treating to a non-HDL-C goal of <100 mg/dL (LDL-C of <70 mg/dL) is considered a therapeutic option. Test Performed at: [facility] [id number] [facility] [place] [address] Byron Tineo MD Blood 09/02/2024 11:1 2 AM CDT 09/03/2024 1:02 AM CDT us Bassam Padilla MD CHEMISTRY ORDERABLES Final Resul t Performing Organization Address [facility] Co de Phone Number [facility] [phone] [facility] [address] [place] [address] [place] [address] * TSH REFLEXIVE (09/02/2024 11:12 AM CDT) TSH 1.20 0.40 - 4.50 mIU/L [facility] Comment: Test Performed at: [email or web address] [address] Byron Tineo MD Blood 09/02/2024 11:1 2 AM CDT 09/03/2024 1:02 AM CDT us Bassam Padilla MD CHEMISTRY ORDERABLES Final Resul t Performing Organization Address [facility] Co de Phone Number [facility] [phone] [facility] [address] [place] [phone] documented in this encounter Visit Diagnoses Diagnosis Medicare annual wellness visit, subsequent- Primary Routine general medical examination at a health care facility Moderate episode of recurrent major depressive disorder Mild intermittent asthma without complication Unspecified asthma Tobacco use disorder Allergy to bee sting Toxic effect of venom Chronic midline low back pain with bilateral sciatica Incisional hernia, without obstruction or gangrene - upper midline to the left Incisional hernia without mention of obstruction or gangrene History of malignant neoplasm of large intestine Personal history of malignant neoplasm of large intestine documented in this encounter Additional Health Concerns Assessment Noted Time PHQ-9 Depression Total Score: 1 07/10/20 25 10:32 AM CDT documented as of this encounter 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
--- OUTSIDE RECORDS SUMMARY | 2024-09-02 11:00 | XMS_ITS | Encounter Summary ---
Author Organization [employer] [facility] Address [address] [place] [address] Care Team Providers Care Independent Film Maker Name Role Phone Bassam Padilla MD Primary Care Provider Reason for Referral * CT Scan (Urgent) - Pending Review Specialty Diagnoses / Procedures Referred By Jailene crooks Referred To Contact Diagnoses Incisional hernia, without obstruction or gangrene History of malignant neoplasm of large intestine Procedures CT ABDOMEN PELVIS W CONTRAST CT ABDOMEN PELVIS W CONTRAST CT ABDOMEN PELVIS W CONTRAST Bassam Padilla MD [address] [place] [phone] Phone: tel: fax: Referral ID Status Reason Start Date Expiration Date V isits Requested Visits Authorized [id number] Pending Review 09/02/2024 10/03/2025 1 1 * Eval and Treat (Routine) - Open Specialty Diagnoses / Procedures Referred By Jailene crooks Referred To Contact Surgery Diagnoses Incisional hernia, without obstruction or gangrene History of malignant neoplasm of large intestine Procedures [place] OFFICE/OUTPATIENT ESTABLISHED MOD MDM 30 MIN [place] OFFICE/OUTPATIENT NEW MODERATE MDM 45 MINUTES Bassam Padilla MD [address] [place] [phone] Phone: tel: fax: Referral ID Status Reason Start Date Expiration Date Visits Re quested Visits Authorized [id number] Open 09/02/2024 09/02/2025 1 1 Reason for Visit * Reason Comments Annual Wellness Visit (Medicare) Chronic Conditions Coordination Encounter Details Date Type Department Care Team (Late st Contact Info) Description 09/02/2024 11:00 AM CDT Office Visit [facility] [address] [address] Bassam Padilla MD [address] [place] [phone] Medicare annual wellness visit, subsequent (Primary [...] on file 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 All questions were answered. Kvdbl-Thmpu-Qzvrqeu provided to patient. ACUTE AND/OR CHRONIC ISSUES [...] currently in drug rehab at [facility] for the next month. He is needing [...] Portions of this note were created using Ok[employer] Dictation software. Attempts were made to correct any mistakes prior to signing this note. There is always a possibility that words were not transcribed correctly. documented in this encounter Plan of Treatment Upcoming Encounters Date Type Department Care Team (Late st Contact Info) Description 03/07/2025 11:00 AM MACHINIST CLASS B Office Visit [facility] Medicine [address] [address] Niya Mccormick, [facility] [address] [address] Scheduled Orders Name Type Priority [...] [facility] Comment: Test Performed at: [facility] [address] [place] [address] Byron Tineo MD Blood 09/02/2024 11:1 2 AM CDT 09/03/2024 1:02 AM CDT us Bassam Padilla MD HEMATOLOGY ORDERABLES Final Resu lt [facility] [phone] [facility] [address] [place] [address] * COMPREHENSIVE METABOLIC PANEL (09/02/2024 11:12 AM [...] [facility] Comment: Test Performed at: [facility] [address] [place] [address] Byron Tineo MD Blood 09/02/2024 11:1 2 AM CDT 09/03/2024 1:02 AM CDT us Bassam Padilla MD CHEMISTRY ORDERABLES Final Resul t [facility] [phone] [facility] [address] [place] [address] * (ABNORMAL) LIPID PANEL (09/02/2024 11:12 AM CDT) CHOLESTEROL 155 <200 mg/dL [facility] HDL 65 > OR = 40 mg/dL [facility] TRIGLYCERIDE 159(H) <150 mg/dL [facility] LDL CALCULATED 66 mg/dL (calc) [facility] Comment: Reference range: <100 Desirable range <100 mg/dL for primary prevention; <70 mg/dL for patients with CHD or diabetic patients with > or = 2 CHD risk factors. LDL-C is now calculated using the Aris-Mary Ann calculation, which is a validated novel method providing better accuracy than the Friedewald equation in the estimation of LDL-C. Aris SS et al. NAYE. 2013;310(19): 1800-3665 (http://education.Limeade/faq/FLZ009) CHOL/HDL RATIO 2.4 <5.0 (calc) [facility] NON-HDL CHOLESTEROL 90 <130 mg/dL (calc) [facility] Comment: For patients with diabetes plus 1 major ASCVD risk factor, treating to a non-HDL-C goal of <100 mg/dL (LDL-C of <70 mg/dL) is considered a therapeutic option. Test Performed at: [facility] [address] [address] [facility] [place] [address] Byron Tineo MD Blood 09/02/2024 11:1 2 AM CDT 09/03/2024 1:02 AM CDT us Bassam Padilla MD CHEMISTRY ORDERABLES Final Resul t Performing Organization Address [facility] Phone Number [facility] [phone] [facility] [address] [place] [address] [place] [address] * TSH REFLEXIVE (09/02/2024 11:12 AM CDT) TSH 1.20 0.40 - 4.50 mIU/L [facility] Comment: Test Performed at: [employer] [address] Byron Tineo MD Blood 09/02/2024 11:1 2 AM CDT 09/03/2024 1:02 AM CDT us Bassam Padilla MD CHEMISTRY ORDERABLES Final Resul t Performing Organization Address [facility] [employer] Phone Number [facility] [phone] [facility] [address] [place] [address] documented in this encounter Visit Diagnoses Diagnosis [...] documented as of this encounter Care Teams Independent Film Maker Relationship Specialty Start Date End Date Bassam Padilla MD [address] [place] [phone] PCP - General Family Practice 10/15/23 documented as of this encounter
[2024-09-03 14:36] VITALS: BP 150/74; PULSE 85; RESP 16; TEMP 36.6; O2SAT 96; BMI 25.1
--- OUTSIDE RECORDS SUMMARY | 2024-09-03 14:37 | XMS_ITS | Encounter Summary ---
Author Organization [facility] Address 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 Topic: [id number] Call >> Aug 31, 2024 2:58 PM Anastasia Serna wrote: Caller is requesting to speak with Clinical Care Team. Caller Name: [facility] Callback Number: [phone] Clinician Type: Other healthcare professional not listed above Call Notes: Has TAN and is requesting records. Transferred to CI. Is this addressing an immediate patient care need? No documented in this encounter Plan of Treatment Upcoming Encounters Date Type Department Care Team (Late st Contact Info) Description 03/07/2025 11:00 AM FRONT OFFICE MANAGER Office Visit [facility] Medicine [place] [address] [facility] [address] [place] [address] Niya Mccormick FNP [address] [facility] [address] [place] [address] documented as of this encounter Visit Diagnoses Not on filedocumented in this encounter Additional Health Concerns Assessment Noted Time PHQ-9 Depression Total Score: 2 08/14/19 24 6:00 PM CDT documented as of this encounter Care Teams Cell Room Supervisor Relationship Specialty Start Date End Date Bassam Padilla MD [address] [facility] [address] [place] [address] PCP - General Family Practice 10/15/23 documented as of this encounter
--- OUTSIDE RECORDS SUMMARY | 2024-09-03 14:37 | XMS_ITS ---
Author Organization [facility] Address [address] [place] [address] Phone Care Team Providers Care Haulage Engine Operator Name Role Phone Bassam Padilla MD Primary Care Provider [phone] Active Problems Problem Noted Date Diagnosed Date [...]
--- OUTSIDE RECORDS SUMMARY | 2024-09-03 14:37 | XMS_ITS | Encounter Summary ---
Author Organization [facility] Address [address] [place] [address] Care Team Providers Care Perinatal Educator Name Role Phone Bassam Padilla MD Primary Care Provider [phone] Encounter Details Date Type Department Care Team (Late st Contact Info) Description 09/03/[address] 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 Gender Identity Not on file Sexual Orientation Not on file documented as of this encounter Plan of Treatment Upcoming Encounters Date Type Department Care Team (Late st Contact Info) Description 03/07/2025 11:00 AM MANAGER FINANCIAL SERVICES Office Visit [facility] [place] [address] [facility] [address] [place] [address] Niya Mccormick, PRODUCT MANAGEMENT SPECIALIST [address] [facility] [address] [place] [address] documented as of this encounter Procedures Procedure Name Priority Date/Time Associated Diagnosis Comments COMPREHENSIVE METABOLIC PANEL Routine 09/02/2024 10:28 AM CDT documented in this encounter Results * COMPREHENSIVE METABOLIC PANEL (09/02/2024 10:28 AM CDT) Blood us Abstract Provider CHEMISTRY ORDERABLES Final Res ult documented in this encounter Visit Diagnoses Not on filedocumented in this encounter Additional Health Concerns Assessment Noted Time PHQ-9 Depression Total Score: 1 09/03/19 25 10:32 AM CDT documented as of this encounter Care Teams Perinatal Educator Relationship Specialty Start Date End Date Bassam Padilla MD [address] [facility] [address] [place] [address] PCP - General Family Practice 10/15/23 documented as of this encounter
--- OUTSIDE RECORDS SUMMARY | 2024-09-03 14:37 | XMS_ITS | Clinical Summary ---
Author Organization [facility] Address [address] [place] [address] Phone Care Team Providers Care In Store Marketing Associate Name Role Phone Bassam Padilla MD Primary Care Provider Allergies Active Allergy Reactions Criticality Noted Date [...] Encounters Date Type Department Care Team Description 09/03/2024 Orders Only [facility] HIM [address] [place] [phone] Provider, Abstract 09/02/2024 11:00 AM CDT Office Visit [facility] [address] [phone] Bassam Padilla MD Medicare annual wellness visit, subsequent (Primary Dx); Moderate episode of recurrent major depressive disorder; Mild intermittent asthma without complication; Tobacco use disorder; Allergy to bee sting; Chronic midline low back pain with bilateral sciatica; Incisional hernia, without obstruction or gangrene - upper midline to the left; History of malignant neoplasm of large intestine 09/02/[address] [address] Bassam Padilla MD Provider Call 08/31/[address] [address] Bassam Padilla MD Provider Call 08/19/2024 Telephone [facility] [address] [phone] Bassam Padilla MD Appointment 08/17/2024 External Device [...] on file Legal Sex Male 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 13[address] [facility] [address] [place] [address] Health Maintenance Due Date Last [...] VACCINE Completed 06/01/2019, 11/24, 03/26/2018 [place] Preventative Visit/Annual Wellness Visit Completed 09/02/2024, 04/15/2023, 12/25/2022, Additional history exists Procedures Procedure Name Priority Date/Time Associated Diagnosis Comments TSH REFLEXIVE Routine 09/02/2024 11:12 AM CDT Moderate episode of recurrent major depressive disorder LIPID PANEL Routine 09/02/2024 11:12 AM CDT Medicare annual wellness visit, subsequent COMPREHENSIVE METABOLIC PANEL Routine 09/02/2024 11:12 AM CDT Medicare annual wellness visit, subsequent CBC WITH DIFFERENTIAL Routine 09/02/2024 11:12 AM CDT Medicare annual wellness visit, subsequent COMPREHENSIVE METABOLIC PANEL Routine 09/02/2024 10:28 AM CDT COLONOSCOPY REPORT 09/11/2023 2: 26 PM CDT HEMOGLOBIN A1C Routine 03/27/2023 9:16 AM COUNTY SUPERVISOR Prediabetes History of malignant neoplasm of large intestine Chronic diarrhea Anemia, unspecified type Screening for prostate cancer from Last 3 Months or Most Recently Relevant to Health Maintenance Results * TSH REFLEXIVE (09/02/2024 11:12 AM CDT) TSH 1.20 0.40 - 4.50 mIU/L [facility] Comment: Test Performed at: [facility] [address] [facility] [place] [address] Byron Tineo MD Blood 09/02/2024 11:1 2 AM CDT 09/03/2024 1:02 AM CDT us Bassam Padilla MD CHEMISTRY ORDERABLES Final Resul t [facility] [phone] [facility] [address] [place] [address] * (ABNORMAL) CBC WITH DIFFERENTIAL (09/02/2024 11:12 [...] [facility] Comment: Test Performed at: [facility] [address] [place] [address] Byron Tineo MD Blood 09/02/2024 11:1 2 AM CDT 09/03/2024 1:02 AM CDT Bassam Padilla MD HEMATOLOGY ORDERABLES Final Resu lt Performing Organization Address City/[facility] Co de Phone Number [facility] [phone] [facility] [address] [facility] [place] [address] * (ABNORMAL) LIPID PANEL (09/02/2024 11:12 AM CDT) CHOLESTEROL 155 <200 mg/dL [facility] HDL 65 > OR = 40 mg/dL [facility] TRIGLYCERIDE 159(H) <150 mg/dL [facility] LDL CALCULATED 66 mg/dL (calc) [facility] Comment: Reference range: <100 Desirable range <100 mg/dL for primary prevention; <70 mg/dL for patients with CHD or diabetic patients with > or = 2 CHD risk factors. LDL-C is now calculated using the Aris-Mayr Ann calculation, which is a validated novel method providing better accuracy than the Friedewald equation in the estimation of LDL-C. Aris SS et al. NAYE. 2013;310(19): 4793-9440 (http://education.Astoria Software/faq/TMG920) CHOL/HDL RATIO 2.4 <5.0 (calc) [facility] NON-HDL CHOLESTEROL 90 <130 mg/dL (calc) [facility] Comment: For patients with diabetes plus 1 major ASCVD risk factor, treating to a non-HDL-C goal of <100 mg/dL (LDL-C of <70 mg/dL) is considered a therapeutic option. Test Performed at: [facility] [address] [facility] [place] [address] Byron Tineo MD Blood 09/02/2024 11:1 2 AM CDT 09/03/2024 1:02 AM CDT Bassam Padilla MD CHEMISTRY ORDERABLES Final Resul t [facility] [phone] [facility] [address] [facility] [place] [address] * COMPREHENSIVE METABOLIC PANEL (09/02/2024 11:12 AM CDT) Only the most recent of2 resultswithin the time period is included. GLUCOSE 87 65 - 99 mg/dL [facility] [...] [facility] Comment: Test Performed at: [facility] [address] [address] Byron Tineo MD Blood 09/02/2024 11:1 2 AM CDT 09/03/2024 1:02 AM CDT us Bassam Padilla MD CHEMISTRY ORDERABLES Final Resul t [facility] [phone] [facility] [address] [place] [address] * COLONOSCOPY REPORT (09/11/2023 2:26 PM CDT) Narrative Procedure Note Reid Obrien DO - 09/11/2023 2:26 PM CDT [facility] GI Patient Name: Dimas Prado [...] In: 2:10:08 PM Scope Out: 2:20:22 PM [address] [place], [place] us Reid Obrien DO GI PROCEDURE ORDERABLES Final Result * HEMOGLOBIN A1C (03/27/2023 9:16 AM COUNTY SUPERVISOR) HEMOGLOBIN A1C 5.4 <5.7 % of total Hgb [facility] Comment: For the purpose of screening for the presence of diabetes: <5.7% Consistent with the absence of diabetes 5.7-6.4% Consistent with increased risk for diabetes (prediabetes) > or =6.5% Consistent with diabetes This assay result is consistent with a decreased risk of diabetes. Currently, no consensus exists regarding use of hemoglobin A1c for diagnosis of diabetes in children. According to [place] Diabetes Association (ADA) guidelines, hemoglobin A1c <7.0% represents optimal control in non- diabetic patients. Different metrics may apply to specific patient populations. Standards of Medical Care in Diabetes(ADA). ESTIMATED AVERAGE GLUCOSE (MG/DL) 108 mg/dL [facility] ESTIMATED AVERAGE GLUCOSE (MMOL/L) 6.0 mmol/L [facility] Comment: HbA1c performed on [employer] platform. Test Performed at: [facility] [address] [place] [address] Byron Tineo MD Blood 03/27/2023 9:16 AM COUNTY SUPERVISOR 03/28/2023 9:47 AM COUNTY SUPERVISOR us Geneva Mcleod CONSUMER EDUCATION SPECIALIST CHEMISTRY ORDERABLES Final Result [facility] [phone] [facility] [address] [place] [address] from Last 3 Months or Most Recently Relevant to Health Maintenance Insurance [employer] HMO MCR Advance Directives For more information, please contact: [phone] * Full Code (Latest Code Status on File) Date Activated Date Inactivated Comments 09/11/2023 1:35 PM 09/11/2023 5:27 PM Care Teams In Store Marketing Associate Relationship Specialty Start Date End Date Bassam Padilla MD [address] [place] [address] PCP - General Family Practice 10/15/23
--- OUTSIDE RECORDS SUMMARY | 2024-09-03 14:38 | XMS_ITS | Encounter Summary ---
Author Organization [facility] Address [address] [place] [address] Care Team Providers Care Stenocaptioner Name Role Phone Coleman Montero MD Primary Care Provider [phone] Encounter Details Date Type Department Care Team (Latest Contact Info) Description 06/12/1998 Outpatient Historical [facility] [place] [address] [place] [address] Abnormal involuntary movements(781.0) (Primary Dx) Social History Tobacco Use Types Packs/Day Years Used Date Smoking Tobacco: Never Assessed Sex and Gender Information Value Date Recorded Sex Assigned at Not on file 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
--- OUTSIDE RECORDS SUMMARY | 2024-09-03 14:38 | XMS_ITS | Clinical Summary ---
Author Organization [facility] Address [address] [place] [address] Phone Care Team Providers Care Print Buyer Name Role Phone Coleman Montero MD Primary Care Provider [phone] Allergies Active Allergy Reactions Criticality Noted Date [...] often do you attend chur ch or jew services? More than 4 times per year 02/11/2020 Do you belong to any clubs o r organizations such as judaism groups, unions, fraternal or athletic groups, or [...] on file Legal Sex Male 5:53 AM DENTAL HYGIENIST Gender Identity Not on file Sexual Orientation [...] CDT Respiratory Rate 16 02/11/2020 9:23 AM DENTAL HYGIENIST Oxygen Saturation 98% 07/20/2020 10:03 AM CDT [...] Villalta MD - 05/12/2019 11:09 AM CDT [facility] GI Patient Name: Dimas Prado Procedure Date: [...] In: 10:58:15 AM Scope Out: 11:06:05 AM [address] [place], [place] Trav Villalta MD GI PROCEDURE ORDERABLES Fin al Result from Last 3 Months or Most Recently Relevant to Health Maintenance Insurance [place]ICA[place] Advance Directives For more information, please contact: [phone] * Full Code (Latest Code Status on [...] 9:34 AM 05/26/2013 11:53 AM Care Teams Print Buyer Relationship Specialty Start Date End Date Coleman Montero MD [address], [place] [address] PCP - General Family Practice 08/18/13
--- OUTSIDE RECORDS SUMMARY | 2024-09-03 14:38 | XMS_ITS | Encounter Summary ---
Author Organization [facility] Address [address] [place] [address] Care Team Providers Care Senior Systems Engineer Name Role Phone Coleman Montero MD Primary Care Provider [phone] Encounter Details Date Type Department Care Team (Latest Contact Info) Description 03/16/2005 Outpatient Historical [facility] [address] [place] [address] Jaden Pardo MD [address] [place] [address] RENAL COLIC (Primary Dx) Social History Tobacco Use Types Packs/Day Years Used Date Smoking Tobacco: Never Assessed Sex and Gender Information Value Date Recorded Sex Assigned at Not on file Legal Sex Male 5:53 AM SPORTS STATISTICIAN Gender Identity Not on file Sexual Orientation Not on file documented as of this encounter Plan of Treatment Not on file documented as of this encounter Procedures Procedure Name Priority Date/Time Associated Diagnosis Comments CT URINARY CALCULI WO CONTRAST Routine 03/16/2005 3:19 PM SPORTS STATISTICIAN documented in this encounter Results * CT RENAL COLIC WO CONT (03/16/2005 3:19 PM SPORTS STATISTICIAN) Anatomical Region Laterality Modality Abdomen Other 03/16/2005 3:19 PM SPORTS STATISTICIAN Narrative 03/16/2005 3:19 PM SPORTS STATISTICIAN RENAL COLIC CT DATE: 03/16/2005. HISTORY: Left-sided [...] Primary documented in this encounter Care Teams Senior Systems Engineer Relationship Specialty Start Date End Date Coleman Montero MD [address] [place] [address] PCP - General Family Practice 08/18/13 documented as of this encounter
--- OUTSIDE RECORDS SUMMARY | 2024-09-03 14:38 | XMS_ITS | Encounter Summary ---
Author Organization [facility] Address [address] [place] [address] Care Team Providers Care Slag Wheeler Name Role Phone Coleman Montero MD Primary Care Provider [phone] Encounter Details Date Type Department Care Team (Latest Contact Info) Description 03/16/2005 Outpatient Historical [facility] [address] 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
--- OUTSIDE RECORDS SUMMARY | 2024-09-03 14:38 | XMS_ITS | Encounter Summary ---
Author Organization [facility] Address [address] [place] [address] Care Team Providers Care Tnt Powder Worker Name Role Phone Coleman Montero MD Primary Care Provider [phone] Encounter Details Date Type Department Care Team (Late st Contact Info) Description 02/21/2007 Emergency [facility] Emergency Department [address] 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 REPAIRER Gender Identity Not on file Sexual Orientation Not on file documented as of this encounter Plan of Treatment Not on file documented as of this encounter Procedures Procedure Name Priority Date/Time Associated Diagnosis Comments CBC WITH DIFFERENTIAL Routine 02/21/2007 11:17 AM SLIDE FASTENER REPAIRER documented in this encounter Results * (ABNORMAL) CBC WITH DIFFERENTIAL (02/21/2007 11:17 AM SLIDE FASTENER REPAIRER) WBC 11.7(H) 4.5 - 11.0 K/ul INTERFACE [...] K/ul INTERFACE SYSTEM 02/21/2007 11:1 7 AM SLIDE FASTENER REPAIRER us Tariq Mays MD HEMATOLOGY ORDERABLES Edited INTERFACE SYSTEM Refer to clinic/hospital department documented in this encounter Visit Diagnoses Diagnosis Cellulitis and abscess of upper arm and forearm Other convulsions Tobacco use disorder Personal history of allergy to analgesic agent Dog bite(E906.0) Dog bite Unspecified place of occurrence documented in this encounter Care Teams Tnt Powder Worker Relationship Specialty Start Date End Date Coleman Montero MD [address] [place] [phone] PCP - General Family Practice 08/18/13 documented as of this encounter
--- OUTSIDE RECORDS SUMMARY | 2024-09-03 14:38 | XMS_ITS | Encounter Summary ---
Author Organization [facility] Address [address] [place] [address] Care Team Providers Care Tire Recapping Machine Operator Name Role Phone Coleman Montero MD Primary Care Provider [phone] Encounter Details Date Type Department Care Team (Late st Contact Info) Description 08/15/[address] [facility] Emergency Department [address] 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
--- OUTSIDE RECORDS SUMMARY | 2024-09-03 14:38 | XMS_ITS ---
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
--- OUTSIDE RECORDS SUMMARY | 2024-09-03 14:38 | XMS_ITS | Encounter Summary ---
Author Organization [facility] Address 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 They will share information as they receive it from ER * Telephone Encounter - Jeffrey Velarde - 09/02/2024 12:52 PM CDT Copied from [facility] #[id number]. Topic: [id number] Call >> Sep 02, 2024 12:47 PM Jeffrey Serna wrote: Caller is requesting to speak with Clinical Care Team. Caller Name: Massiel collins/ [facility] (Other) Callback Number: [phone] Clinician Type: Other healthcare professional not listed [...] st Contact Info) Description 03/07/2025 11:00 AM MANAGEMENT TRAINEE MARKETING Office Visit [facility] [place] [address] [address] Niya Mccormcik FNP [address] [facility] [address] [place] [address] documented as of this encounter Visit Diagnoses Not on filedocumented in this encounter Additional Health Concerns Assessment Noted Time PHQ-9 Depression Total Score: 1 09/03/19 10:32 AM CDT documented as of this encounter Care Teams Cut Off Sawyer [place]ingle Mill Relationship Specialty Start Date End Date Bassam Padilla MD [address] [place] [address] PCP - General Family Practice 10/15/23 documented as of this encounter
--- OUTSIDE RECORDS SUMMARY | 2024-09-03 14:38 | XMS_ITS | Encounter Summary ---
Author Organization [facility] Address [address] [place] [address] Care Team Providers Care Insurance Operations Rep Name Role Phone Coleman Montero MD Primary Care Provider [phone] Encounter Details Date Type Department Care Team (Latest Contact Info) Description 07/07/1998 Outpatient Historical [address] [phone] Shaw Schmidt, DO [address] [place] [address] Essential and other specified forms of tremor (Primary Dx) Social History Tobacco Use Types Packs/Day Years Used Date Smoking Tobacco: Never Assessed Sex and Gender Information Value Date Recorded Sex Assigned at Not on file Legal Sex Male 5:53 AM FUR POINTER Gender Identity Not on file Sexual Orientation Not on file documented as of this encounter Plan of Treatment Not on file documented as of this encounter Visit Diagnoses Diagnosis Essential and other specified forms of tremor- Primary documented in this encounter Care Teams Insurance Operations Rep Relationship Specialty Start Date End Date Coleman Montero MD [address] [place] [address] PCP - General Family Practice 08/18/13 documented as of this encounter
--- OUTSIDE RECORDS SUMMARY | 2024-09-03 14:38 | XMS_ITS | Encounter Summary ---
Author Organization [facility] Address [address] [place] [address] Care Team Providers Care Fire Chief Name Role Phone Coleman Montero MD Primary Care Provider [phone] Encounter Details Date Type Department Care Team (Latest Contact Info) Description 05/01/1998 Outpatient Historical [address] [phone] Shaw Schmidt, DO [address] [place] [address] Spasm of muscle (Primary Dx) Social History Tobacco Use Types Packs/Day Years Used Date Smoking Tobacco: Never Assessed Sex and Gender Information Value Date Recorded Sex Assigned at Not on file Legal Sex Male 5:53 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
--- OUTSIDE RECORDS SUMMARY | 2024-09-03 14:38 | XMS_ITS | Encounter Summary ---
Author Organization [facility] Address [address] [place] [address] Care Team Providers Care Vulcanizer Name Role Phone Coleman Montero MD Primary Care Provider [phone] Encounter Details Date Type Department Care Team (Latest Contact Info) Description 11/19/2004 Outpatient Historical [facility] Occupational Medicine [address] [place] [phone] Eran Barajas MD NO ADDRESS ON FILE Routine medical exam (Primary Dx) Social History Tobacco Use Types Packs/Day Years Used Date Smoking Tobacco: Never Assessed Sex and Gender Information Value Date Recorded Sex Assigned at Not on file Legal Sex Male 5:53 AM BLACK ASH WORKER Gender Identity Not on file Sexual Orientation Not on file documented as of this encounter Plan of Treatment Not on file documented as of this encounter Visit Diagnoses Diagnosis Routine medical exam- Primary Routine general medical examination at a health care facility documented in this encounter Care Teams Vulcanizer Relationship Specialty Start Date End Date Coleman Montero MD [address] [place] [address] PCP - General Family Practice 08/18/13 documented as of this encounter
[2024-09-03 16:13] LABS: Hematocrit 47.0 % (37-53); Hemoglobin 15.20 g/dL (11.27-16.99); Mean Corpuscular HGB Conc 32.3 g/dL (30-55); Mean Corpuscular Hemoglobin 32.4 pg (27-33); Mean Corpuscular Volume 100.2 fl (82-101); Nucleated Red Blood Cells % 0 %; Platelet Count 282 10^3/cmm (157-399); Red Blood Count 4.69 10^6/uL (3.85-5.65); White Blood Count 14.15 10^3/uL (3.29-11.43)
--- NOTE | 2024-09-03 16:28 | PC.NURSE ---
Turning [place] (available until midnight)
[2024-09-03 16:33] LABS: Alanine Aminotransferase 17 U/L (0-41); Albumin Level 4.0 g/dL (3.5-5.2); Alkaline Phosphatase 80 U/L (40-130); Anion Gap 15.3 (5-19); Aspartate Amino Transferase 17 U/L (0-40); Blood Urea Nitrogen 17 mg/dL (6-20); Calcium 9.0 mg/dL (8.5-10.5); Carbon Dioxide 26 mmol/L (22-29); Chloride 100 mmol/L (98-107); Creatinine Clr Calc Pharmacy 129.7313; Globulin 3.4 g/dL (1.3-4.6); Glucose 105 mg/dL (65-115); Osmolality Calculated 286 mOsm/kg (285-295); Potassium 4.3 mmol/L (3.5-5.1); Sodium 137 mmol/L (136-145); Total Protein 7.4 g/dL (6.6-8.7)
[2024-09-03 16:34] LABS: Lactic Sepsis W/Reflex 1.9 mmol/L (0.5-2.2)
--- NOTE | 2024-09-03 16:37 | CTR_ITS ---
PROCEDURE INFORMATION: Exam: CT Abdomen And Pelvis With Contrast Exam date and time: 09/03/2024 4:51 PM Age: 58 years old Clinical indication: Mass, lump, or swelling; Periumbilical; Prior surgery; Surgery date: 6+ months; Surgery type: Colon resection (cancer); Colon cancer; Additional info: Recurrence of hernia TECHNIQUE: Imaging protocol: Computed tomography of the abdomen and pelvis with contrast. Radiation optimization: All CT scans at this facility use at least one of these dose optimization techniques: automated exposure control; mA and/or kV adjustment per patient size (includes targeted exams where dose is matched to clinical indication); or iterative reconstruction. Contrast material: OMNIPAQUE 350; Contrast volume: 100 ml; Contrast route: INTRAVENOUS (IV); COMPARISON: CT abdomen pelvis w con* [id number] 09/02/2024 7:08 PM RADIATION DOSE METRICS: Total DLP (mGy-cm): 670.53 FINDINGS: Lungs: Lung bases are clear. No pleural effusion. Liver: Normal. No mass. Gallbladder and biliary ducts: Normal. No calcified stones. No ductal dilation. Pancreas: Normal. No ductal dilation. Spleen: Normal. No splenomegaly. Adrenal glands: Normal. No mass. Kidneys and ureters: 4 cm right renal cyst noted. Stomach and bowel: There is evidence of previous right colonic surgery. Appendix: No evidence of appendicitis. Intraperitoneal space: Unremarkable. No free air. No significant fluid collection. Vasculature: Unremarkable. No abdominal aortic aneurysm. Lymph nodes: Unremarkable. No enlarged lymph nodes. Urinary bladder: Unremarkable as visualized. Reproductive: Unremarkable as visualized. Bones/joints: Unremarkable. No acute fracture. Soft tissues: There are 2 separate periumbilical hernias, both of which contains small bowel. There are multiple loops of severely distended small bowel within the abdomen but the small bowel loops in the left upper quadrant are decompressed. CT/CT abdomen pelvis w con* [id number] IMPRESSION: 1. Mechanical small bowel obstruction caused by a periumbilical hernia which contains small bowel 2. A benign renal cyst or cysts have been detected. No further follow-up imaging is required. COMMENTS: Consistent with the [employer]'s Incidental Findings Committee white paper (J Am Sarah Radiol 2018): Any incidental renal lesion less than 1 cm or classified as too small to characterize, or any incidental cystic renal lesion characterized as simple-appearing, is likely benign. No follow-up imaging is recommended for these lesions per consensus recommendations based on imaging criteria.
--- NOTE | 2024-09-03 16:45 | ED_ITS ---
HPI - Abdominal Pain 2 General: Chief Complaint: Abdominal Pain Stated Complaint: hernia Time Seen by Provider: 09/03/24 15:20 History of Present Illness: 58-year-old man whom I saw in the emerge ncy room yesterday with a incarcerated but not strangulated ventral hernia. This was reduced. He went home and apparently this morning it came back out. He had nausea and vomiting. It appears much more full and tight than yesterday. Related Data Allergies Allergy/AdvReac Type Severity Reaction Status Date / Time ibuprofen Allergy ADR-Seizure Verified 09/02/24 16:58 Review of Systems 2 Narrative: Constitutional symptoms: Negative except as documented in HPI. Skin symptoms: Negative except as documented in HPI. Eye symptoms: Negative except as documented in HPI. ENMT symptoms: Negative except as documented in HPI. Respiratory symptoms: Negative except as documented in HPI. Cardiovascular symptoms: Negative except as documented in HPI. Gastrointestinal symptoms: Negative except as documented in HPI. Genitourinary symptoms: Negative except as documented in HPI. Musculoskeletal symptoms: Negative except as documented in HPI. Neurologic symptoms: Negative except as documented in HPI. Psychiatric symptoms: Negative except as documented in HPI. Endocrine symptoms: Negative except as documented in HPI. Physical Exam 2 Narrative: EXAM NARRATIVE: General: Alert, no acute distress. Skin: Warm, dry. Head: Normocephalic, atraumatic. Neck: Supple, trachea midline. Eye: Extraocular movements are intact. Ears, nose, mouth and throat: mucosa moist. Cardiovascular: Regular, Normal peripheral perfusion. Respiratory: Lungs are clear to auscultation, respirations are non-labored, breath sounds are equal, Symmetrical chest wall expansion. Gastrointestinal: Soft, Non distended, ventral hernia is now much more and tight as compared to yesterday. No overlying redness Musculoskeletal: Normal ROM, no deformity. Neurological: Alert and oriented, No focal neurological deficit observed. Psychiatric: Cooperative, appropriate mood & affect. Course 2 Vital Signs: Vital signs: Vital Signs Temperature 98.6 F 09/03/24 20:00 Pulse Rate 86 09/03/24 20:00 Respiratory Rate 18 09/03/24 20:00 Blood Pressure 147/84 09/03/24 20:00 Pulse Oximetry 96 09/03/24 20:00 Oxygen Delivery Me thod Room Air 09/03/24 20:00 MDM - Abdominal Pain Medical Decision Making Medical decision making: Differential diagnosis including but not limited to and based on the above HPI, review of systems and physical exam: Concern for strangulation and incarceration of hernia. Bowel obstruction. Orders placed to evaluate differential diagnosis based on the above differential, HPI and physical exam Lab Review: Laboratory results were reviewed and interpreted by myself the emergency room physician. Mild worsening leukocytosis. Lactate is 1.8 was 1.0 yesterday. No renal failure. Urinalysis is negative for infection. No renal failure. CT of the abdomen pelvis with contrast: Mechanical small bowel obstruction caused by periumbilical hernia which contained small bowel. This was reviewed and interpreted by myself the emergency room physician. I also reviewed the radiology report. I reviewed the patient's medical record. Reexamination: Patient remained stable. No increased work of breathing. No altered mental status. No focal motor deficits. Still quite tender in his abdomen. However he is not any distress and is sleeping. Consultation: I spoke with Dr. Gregorio who is on-call for surgery who is taken the patient to the OR. Assessment and plan: Incarcerated ventral hernia Small bowel obstruction ?Zosyn in the emergency room. -I discussed the patient with the hospitalist on-call who is admitting the patient. - Discussed findings and plan with patient. Answered any questions. - All laboratory values were reviewed and interpreted personally by myself, the ER physician - All imaging was reviewed and interpreted personally by myself, the ER physician. - Evaluation and treatment of this problem were appropriate in the emergency setting Lab Data 09/03/24 16:05 09/03/24 16:05 Labs/Radiology: Radiology Impressions Abdomen/Pelvis CT 09/03/24 16:37 IMPRESSION: 1. Mechanical small bowel obstruction caused by a periumbilical hernia which contains small bowel 2. A benign renal cyst or cysts have been detected. No further follow-up imaging is required. COMMENTS: Consistent with the [employer]'s Incidental Findings Committee white paper (J Am Sarah Radiol 2018): Any incidental renal lesion less than 1 cm or classified as too small to characterize, or any incidental cystic renal lesion characterized as simple-appearing, is likely benign. No follow-up imaging is recommended for these lesions per consensus recommendations based on imaging criteria. Laboratory Results WBC 14.15 10^3/uL (3.29-11.43) H 09/03/24 16:05 RBC 4.69 10^6/uL (3.85-5.65) 09/03/24 16:05 Hgb 15.20 g/dL (11.27-16.99) 09/03/24 16:05 Hct 47.0 % (37-53) 09/03/24 16:05 MCV 100.2 fl (82-101) 09/03/24 16:05 MCH 32.4 pg (27-33) 09/03/24 16:05 MCHC 32.3 g/dL (30-55) 09/03/24 16:05 RDW 13.6 % (12.1-15.1) 09/03/24 16:05 Plt Count 282 10^3/cmm (157-399) 09/03/24 16:05 MPV 8.6 fL (7.4-10.4) 09/03/24 16:05 Neut % (Auto) 83.5 % 09/03/24 16:05 Lymph % (Auto) 6.6 % 09/03/24 16:05 Esmeralda % (Auto) 9.2 % 09/03/24 16:05 Eos % (Auto) 0.1 % 09/03/24 16:05 Baso % (Auto) 0.3 % 09/03/24 16:05 Neut # (Auto) 11.82 10^3/uL (1.8-7.7) H 09/03/24 16:05 Lymph # (Auto) 0.9 10^3/uL (0.8-4.8) 09/03/24 16:05 Esmeralda # (Auto) 1.3 10^3/uL (0.2-0.9) H 09/03/24 16:05 Eos # (Auto) 0.0 10^3/uL (0.0-0.8) 09/03/24 16:05 Baso # (Auto) 0.0 10^3/uL (0.0-0.1) 09/03/24 16:05 Nucleated RBC % (auto) 0 % 09/03/24 16:05 Nucleated RBCs # 0.0 /100WBC 09/03/24 16:05 Sodium 137 mmol/L (136-145) 09/03/24 16:05 Potassium 4.3 mmol/L (3.5-5.1) 09/03/24 16:05 Chloride 100 mmol/L (98-107) 09/03/24 16:05 Carbon Dioxide 26 mmol/L (22-29) 09/03/24 16:05 Anion Gap 15.3 (5-19) 09/03/24 16:05 BUN 17 mg/dL (6-20) 09/03/24 16:05 Creatinine 0.7 mg/dL (0.7-1.2) 09/03/24 16:05 GFR Calculation 116.7 mL/min (90-130) 09/03/24 16:05 Glucose 105 mg/dL (65-115) 09/03/24 16:05 Calculated Osmolality 286 mOsm/kg (285-295) 09/03/24 16:05 Lactic Acid 1.9 mmol/L (0.5-2.2) 09/03/24 16:05 Calcium 9.0 mg/dL (8.5-10.5) 09/03/24 16:05 Total Bilirubin 0.6 mg/dL (0.15-1.2) 09/03/24 16:05 AST 17 U/L (0-40) 09/03/24 16:05 ALT 17 U/L (0-41) 09/03/24 16:05 Alkaline Phosphatase 80 U/L (40-130) 09/03/24 16:05 Total Protein 7.4 g/dL (6.6-8.7) 09/03/24 16:05 Albumin 4.0 g/dL (3.5-5.2) 09/03/24 16:05 Globulin 3.4 g/dL (1.3-4.6) 09/03/24 16:05 Urine Color Yellow (Yellow) 09/03/24 16:03 Urine Appearance Clear (CLEAR) 09/03/24 16:03 Urine pH 5.5 (5-7) 09/03/24 16:03 Ur Specific [place] 1.026 (1.005-1.030) 09/03/24 16:03 Urine Protein 1+ (Negative) A 09/03/24 16:03 Urine Glucose (UA) Negative (Normal) 09/03/24 16:03 Urine Ketones 1+ (Negative) H 09/03/24 16:03 Urine Blood Negative (Negative) 09/03/24 16:03 Urine Nitrate Negative (Negative) 09/03/24 16:03 Urine Bilirubin Negative (Negative) 09/03/24 16:03 Urine Urobilinogen 0.2 mg/dL (Negative) 09/03/24 16:03 Ur Leukocyte Esterase Negative (Negative) 09/03/24 16:03 Urine RBC 3-5 /hpf (0-2) 09/03/24 16:03 Urine WBC 0-5 /hpf (0-5) 09/03/24 16:03 Ur Squamous Epith Cells 0-5 /hpf (0-5) 09/03/24 16:03 Amorphous Sediment Not Reportable 09/03/24 16:03 Urine Bacteria None seen /hpf (NONE) 09/03/24 16:03 Hyaline Casts 1.21 /lpf 09/03/24 16:03 All radiology interpretation(s) finalized by discharge Discharge Plan Discharge Patient Disposition: Admitted As Inpatient Clinical Impression: Ventral hernia, Incarcerated ventral hernia, Bowel obstruction Condition: Stable Coding Level of Care Code ED [employer]
[2024-09-03 16:51] LABS: Glucose Urine UA Negative (Normal); Nitrate Urine Negative (Negative); Specific Gravity, Urine 1.026 (1.005-1.030)
[2024-09-03] MEDS: iohexol 350 mg/mL 500 mL Btl (per mL) IV (16:54)
[2024-09-03 16:56] LABS: Add Urine Microscopic? YES
--- NOTE | 2024-09-03 18:29 | PC.NURSE ---
pt placed in trendelenburg per Dr. Sommers
[2024-09-03 18:33] VITALS: PULSE 81; RESP 19; O2SAT 97
--- NOTE | 2024-09-03 19:54 | P.ANESASSM_ITS ---
Pre-Anesthetic Assessment Height/Weight: Height 5 ft 11 in Weight 180 lb Temp Pulse Resp BP Pulse Ox O2 Del Method 97.9 F 81 19 H 150/74 97 Room Air 09/03/24 14:36 09/03/24 18:33 09/03/24 18:33 09/03/24 14:36 09/03/24 18:33 09/03/24 18:33 Preop Diagnosis: Incarcerated hernia Operation Date: 09/03/24 20:40 Proposed Procedures p Incisional Hernia Repair(Not Applicable) - Alana Gregorio MD Was Beta Arpit taken within 24 hours: N/A Was Clonidine taken within 24 hours: N/A Social Tobacco and No alcohol Exam alert, oriented x 3, clear to auscultation bilaterally and regular rate & rhythm Airway Submandibular: within normal limits Cervical ROM: within normal limits Mallampati: Class III Comments: Comments: Poor dentition, denies any loose Anesthetic Plan ASA status: 3 Anesthesia: General Other: Patient presents for an incarcerated hernia This was reduced yesterday the patient returns today with worsening symptoms. Lactate 1.8 WBC 14.15 NPO since yesterday 1 prior seizure in April of this year, no AEDs Prior stroke last year, no blood thinners, no residual symptoms Smokes nicotine, occasional marijuana Patient states that he took a hit off of a bowl 3 times this year but nothing recently Vital signs stable, afebrile Plan for GETA Medications/Allergies Allergies Allergy/AdvReac Type Severity Reaction Status Date / Time ibuprofen Allergy ADR-Seizure Verified 09/02/24 16:58 Data Anesthesia 09/03/24 16:05 09/03/24 16:05 Short CBC 09/03/24 Range/Units 16:05 WBC 14.15 H (3.29-11.43) 10^3/uL Hgb 15.20 (11.27-16.99) g/dL Hct 47.0 (37-53) % MCV 100.2 (82-101) fl Plt Count 282 (157-399) 10^3/cmm Neut % (Auto) 83.5 % Neut # (Auto) 11.82 H (1.8-7.7) 10^3/uL BMP 09/03/24 16:05 Sodium 137 Potassium 4.3 Chloride 100 Carbon Dioxide 26 BUN 17 Creatinine 0.7 Glucose 105 Calcium 9.0 Liver Function 09/03/24 Range/Units 16:05 Total Bilirubin 0.6 (0.15-1.2) mg/dL AST 17 (0-40) U/L ALT 17 (0-41) U/L Alkaline Phosphatase 80 (40-130) U/L Albumin 4.0 (3.5-5.2) g/dL Urine 09/03/24 Range/Units 16:03 Urine Color Yellow (Yellow) Urine Appearance Clear (CLEAR) Urine pH 5.5 (5-7) Ur Specific [place] 1.026 (1.005-1.030) Urine Protein 1+ A (Negative) Urine Glucose (UA) Negative (Normal) Urine Ketones 1+ H (Negative) Urine Nitrate Negative (Negative) Urine Bilirubin Negative (Negative) Ur Leukocyte Esterase Negative (Negative) Urine RBC 3-5 (0-2) /hpf Urine WBC 0-5 (0-5) /hpf
[2024-09-03 20:00] VITALS: BP 147/84; PULSE 86; RESP 18; TEMP 37; O2SAT 96
[2024-09-03] MEDS: piperacillin-tazobactam 4.5 GM in sodium chloride 0.9% (plus) 50 ML IV (20:34)
[2024-09-03] MEDS: BUPivacaine 0.5% INJ 30 mL XX (21:03)
[2024-09-03] MEDS: lidocaine-epi 1% 20 mL INJ INJECTION (21:03)
[2024-09-04] VITALS (19 sets, daily range): BP systolic 110–150; BP diastolic 63–93; PULSE 68–90; RESP 10–19; TEMP 36.3–37.3; O2SAT 90–100; BMI 27.0; BMI 26.9
[2024-09-04] MEDS: acetaminophen 1,000 MG/100 ML PIGGYBACK 400 MG IV ×4 (01:20→23:57)
--- NOTE | 2024-09-04 01:25 | ANE.PACU2 ---
Inpatient post-anesthesia follow up: Airway intact: Yes Vital signs: Temperature 97.8 F Pulse Rate 69 Respiratory Rate 18 Blood Pressure 145/83 Pulse Oximetry 97 Oxygen Delivery Me thod Room Air Oxygen Flow Rate 2 Fraction of Inspir ed Oxygen Hydration adequate: Yes Nausea and vomiting: No Pain level: 1 Mental status: Baseline
[2024-09-04 04:08] LABS: Hematocrit 39.9 % (37-53); Hemoglobin 13.10 g/dL (11.27-16.99); Mean Corpuscular HGB Conc 32.8 g/dL (30-55); Mean Corpuscular Hemoglobin 32.4 pg (27-33); Mean Corpuscular Volume 98.8 fl (82-101); Nucleated Red Blood Cells % 0 %; Platelet Count 258 10^3/cmm (157-399); Red Blood Count 4.04 10^6/uL (3.85-5.65); White Blood Count 9.97 10^3/uL (3.29-11.43)
--- NOTE | 2024-09-04 04:19 | P.CONIM_ITS ---
Providers/Reason For Consult 2 Consulting Physician/Specialty*: Shreya Martinez MD / Hospitalist Reason for Consult*: medical comorbidity management. Attending Physician: Alana Gregorio MD Primary Care Provider: Marquez Rivas MD History of Present Illness History of Present Illness Dimas Prado is a 58 year old male who denies any known past medical history, [facility], who had presented to the emergency room on September 02, 2024 with abdominal pain and swelling and was found to have a ventral hernia which was reduced in the emergency room. Patient was discharged but presented back again this evening with worsened abdominal pain swelling nausea and vomiting and lack of bowel movements. Additionally had a white blood cell count at 14,000. CAT scan showed evidence of obstruction of the periumbilical hernia. He was taken into the OR and has now undergone reduction of the ventral hernia, excision of hernia sacs, adhesiolysis. He states that he still has some abdominal pain but refuses to take any opiates as he is recovering from opiate addiction. he is seen post operatively on [facility] surg floor. Denies any past medical history of diabetes mellitus hypertension, hepatitis or other medical comorbidities. Review of Systems 2 General: Reports: 10 or more systems reviewed and unremarkable except in HPI and below Const: Denies: fever(s), chills or body aches Eyes: Denies: change in vision, blurry vision or photophobia ENMT: Reports: hoarseness; Denies: throat pain, enlarged tonsils, odynophagia or nasal congestion Card: Denies: chest pain, palpitations, irregular heart rhythm, edema, swelling of feet/ankles, lightheadedness, pre-syncope, dyspnea on exertion or orthopnea Resp: Denies: dyspnea, productive cough, non-productive cough, wheezing, stridor, pain on inspiration, change in phlegm color, hemoptysis or chest congestion GI: Denies: abdominal pain, nausea, vomiting, hematemesis, coffee ground emesis, dysphagia, heartburn, diarrhea, constipation, GI cramping, change in stool character, hematochezia or melena : Denies: flank pain, dysuria, urinary frequency, urinary urgency, urinary hesitancy or hematuria Musc: Denies: neck pain, back pain, extremity pain, joint swelling, joint warmth or deformity Neuro: Denies: headache(s), numbness in extremities, weakness in extremities, sensory changes, difficulty walking, frequent falls, dizziness, vertigo, behavioral changes, Slurred speech present or seizure-like activity Psych: Denies: anxiety, depression, suicidal ideation or homicidal ideation Endo: Denies: polyuria, polydipsia, tired all the time, cold intolerance or hot flashes Augustine/Lymph: Denies: easy bruising or easy bleeding Medications/Allergies Allergies Allergy/AdvReac Type Severity Reaction Status Date / Time ibuprofen Allergy ADR-Seizure Verified 09/02/24 16:58 Current Medications Generic Name Dose Route Start Last Admin Trade Name Freq PRN Reason Stop Dose Admin Sodium Chloride 1,000 mls @ 75 mls/hr 09/04/24 02:15 09/04/24 03:21 Sodium Chloride 0.9% IV 75 mls/hr .[id number] EUGENIO Administration Vitals/I&O/Wt Last Vital Signs Temp 98.6 F 09/04/24 02:11 Pulse 74 09/04/24 02:11 Resp 16 09/04/24 02:11 BP 120/72 09/04/24 02:11 Pulse Ox 92 09/04/24 01:52 O2 Del Method Nasal Cannula 09/04/24 01:43 O2 Flow Rate 8 09/04/24 01:05 09/03/24 09/03/24 09/04/24 14:59 22:59 06:59 Intake Total 0 / 0 1050 / 1050 1100 / 2150 Output Total 300 / 300 Balance 0 / 0 1050 / 1050 800 / 1850 Weight last 48 hrs Weight 87.77 kg Weight 87.906 kg Weight 81.647 kg Physical Exam 2 Narrative: General: No acute distress, AO x3 HEENT: PERRLA, pupils bilaterally equal and reactive, pallors not present Chest: Normal vesicular breath sounds, no added sounds, equal good air entry bilaterally CVS: S1-S2 regular, no murmurs, no tachycardia, no gallops, no rubs Abdomen: post op abdomen EXT: no edema clubbong or cyanosis Neuro: no focal deficits Urinary Catheter Management: Kern: Cath Placed During This Visit: yes Urinary Catheter Date of Insertion: 09/04/24 Urinary Catheter Time of Insertion: 00:29 Data 09/03/24 16:05 09/03/24 16:05 Other Labs: Launch[facility] [address] [place] [address] [place] [address] CT Scan Report Signed Patient: Dimas Prado Unit #: [id number] : [id number] Age/Sex: 58 / M ADM Date: 09/03/24 Loc: ER Room/Bed: Attending Dr: Ordering Provider/Ordering MD: Alba Sommers MD Date of Service: 09/03/24 Procedure(s): CT abdomen pelvis w con* [id number] Accession Number(s): [id number] Report Number: [id number] PROCEDURE INFORMATION: Exam: CT Abdomen And Pelvis With Contrast Exam date and time: 09/03/2024 4:51 PM Age: 58 years old Clinical indication: Mass, lump, or swelling; Periumbilical; Prior surgery; Surgery date: 6+ months; Surgery type: Colon resection (cancer); Colon cancer; Additional info: Recurrence of hernia TECHNIQUE: Imaging protocol: Computed tomography of the abdomen and pelvis with contrast. Radiation optimization: All CT scans at this facility use at least one of these dose optimization techniques: automated exposure control; mA and/or kV adjustment per patient size (includes targeted exams where dose is matched to clinical indication); or iterative reconstruction. Contrast material: OMNIPAQUE 350; Contrast volume: 100 ml; Contrast route: INTRAVENOUS (IV); COMPARISON: CT abdomen pelvis w con* [id number] 09/02/2024 7:08 PM RADIATION DOSE METRICS: Total DLP (mGy-cm): 670.53 FINDINGS: Lungs: Lung bases are clear. No pleural effusion. Liver: Normal. No mass. Gallbladder and biliary ducts: Normal. No calcified stones. No ductal dilation. Pancreas: Normal. No ductal dilation. Spleen: Normal. No splenomegaly. Adrenal glands: Normal. No mass. Kidneys and ureters: 4 cm right renal cyst noted. Stomach and bowel: There is evidence of previous right colonic surgery. Appendix: No evidence of appendicitis. Intraperitoneal space: Unremarkable. No free air. No significant fluid collection. Vasculature: Unremarkable. No abdominal aortic aneurysm. Lymph nodes: Unremarkable. No enlarged lymph nodes. Urinary bladder: Unremarkable as visualized. Reproductive: Unremarkable as visualized. Bones/joints: Unremarkable. No acute fracture. Soft tissues: There are 2 separate periumbilical hernias, both of which contains small bowel. There are multiple loops of severely distended small bowel within the abdomen but the small bowel loops in the left upper quadrant are decompressed. CT/CT abdomen pelvis w con* [id number] IMPRESSION: 1. Mechanical small bowel obstruction caused by a periumbilical hernia which contains small bowel 2. A benign renal cyst or cysts have been detected. No further follow-up imaging is required. A&P Assessment and plan 1. Incarcerated ventral hernia: 2. Leukocytosis: Plan: 58-year-old male brought to the emergency room today with incarcerated ventral hernia for which he has currently undergone laparotomy, reduction of the hernia and adhesiolysis today. Has some postop pain for which she has received IV Tylenol, refuses opiates as he is recovering from an opiate addiction. Added Toradol 15 mg IV every 8 hours as needed for pain management. Continue antibiotic prophylaxis with piperacillin/tazobactam, to be dosed by pharmacy. Normal saline at 75 cc an hour while patient is remaining NPO. Patient reports a history of chronic smoking, smoking cessation counseling provided. Added nicotine patch for hospital stay. Please note that there have been several IT issues and placing orders on this patient tonight. While attempting to place antibiotic orders, pain management orders, there are several alerts for duplication of orders. There are several prompts that indicate that patient is already on Zosyn, Dilaudid, hydrocodone APAP, however none of these orders are actually visible on his current active orders. Nursing is unable to see any orders either. The antibiotic orders for piperacillin/tazobactam have been able to be activated by using over ride features for now. DVT ppx: SCDs added, a/c to be initiated when considered safe from surgical standpoint PDMP PDMP Reviewed: Not Reviewed Consult Attestations 2 Medical Necessity Statement: per admitting Coding Level of Care Code Acute Code for Chg Fwd Moderate MDM includes number and complexity of problems actively addressed during encounter, amount and/or complexity of data reviewed/ordered and described risk of complication, morbidity or mortality of management as documented Diagnoses Incarcerated ventral hernia K43.6 Leukocytosis D72.829
[2024-09-04 04:44] LABS: Anion Gap 17.4 (5-19); Blood Urea Nitrogen 18 mg/dL (6-20); Calcium 7.6 mg/dL (8.5-10.5); Carbon Dioxide 21 mmol/L (22-29); Chloride 106 mmol/L (98-107); Creatinine Clr Calc Pharmacy 114.5731; Glucose 157 mg/dL (65-115); Osmolality Calculated 295 mOsm/kg (285-295); Potassium 4.4 mmol/L (3.5-5.1); Sodium 140 mmol/L (136-145)
[2024-09-04] MEDS: piperacillin-tazobactam 3.375 GM in sodium chloride 0.9% (plus) 50 ML IV ×3 (04:46→20:37)
--- NOTE | 2024-09-04 09:44 | PC.PHAR ---
Pt is from [facility]-current med list verified with last fill dates and day supply
--- NOTE | 2024-09-04 12:18 | PC.CHAP ---
Pastoral Care Encounter/Spiritual Assessment Type of Contact [] Declined elevator examiner visit [] Patient/Family/Request visit [] Outpatient visit [] Follow-up visit [] Physician referral [] Code/Alert [x] Routine visit [] Staff referral [] Actively dying [x] Patient sleeping [] Family support [] [] Out of room [] Palliative care [] [] Receiving care in room [] Pre-surgical visit [] Trauma [] Long length of stay [] ICU visit [] Other: Relational/Emotional Strength [] Patient feels connected with others/family/visitors/staff [] Distress [] Loneliness/isolation [] Abandonment Spirituality of Patient [] Person of Patricia [] Attends Quaker of their Patricia [] Believes in Prayer [] Reads Bible or Alevism materials [] There are Spiritual issues to be addressed Paper Roll Machine Operator Interventions [] Prayer [] Active listening [] Non-anxious presence [] Spiritual/emotional support [] Crisis/trauma care [] Spiritual counseling [] Bereavement support [] Provided bereavement packet [] Provided Bible/devotional materials [] Provided toy/stuffed animal, coloring book to patient or family member [] Provided Communion [] Anointing/[place] [] Salvation [] Completed spiritual assessment [] Other: Impact on Illness or Injury [] Angry [] Fearful [] Anxious [] Often cries [] Exhaustion [] Unable to work [] Unable to attend sabianist [] Unable to walk/stand [] Unable to read [] Unable to drive [] Unable to eat/drink [] Unable to sleep [] Unable to be with family [] Patient intubated [] Other: Summary Time spent with patient
[2024-09-05] VITALS (10 sets, daily range): BP systolic 128–146; BP diastolic 71–84; PULSE 61–88; RESP 17–19; TEMP 36.4–36.9; O2SAT 94–98
[2024-09-05 02:03] LABS: Hematocrit 35.9 % (37-53); Hemoglobin 11.80 g/dL (11.27-16.99); Mean Corpuscular HGB Conc 32.9 g/dL (30-55); Mean Corpuscular Hemoglobin 33.1 pg (27-33); Mean Corpuscular Volume 100.8 fl (82-101); Nucleated Red Blood Cells % 0 %; Platelet Count 228 10^3/cmm (157-399); Red Blood Count 3.56 10^6/uL (3.85-5.65); White Blood Count 8.66 10^3/uL (3.29-11.43)
[2024-09-05 02:31] LABS: Alanine Aminotransferase 12 U/L (0-41); Albumin Level 3.3 g/dL (3.5-5.2); Alkaline Phosphatase 53 U/L (40-130); Anion Gap 14.8 (5-19); Aspartate Amino Transferase 13 U/L (0-40); Blood Urea Nitrogen 13 mg/dL (6-20); Calcium 7.7 mg/dL (8.5-10.5); Carbon Dioxide 23 mmol/L (22-29); Chloride 110 mmol/L (98-107); Creatinine Clr Calc Pharmacy 133.6620; Globulin 2.4 g/dL (1.3-4.6); Glucose 94 mg/dL (65-115); Osmolality Calculated 298 mOsm/kg (285-295); Potassium 3.8 mmol/L (3.5-5.1); Sodium 144 mmol/L (136-145); Total Protein 5.7 g/dL (6.6-8.7)
[2024-09-05] MEDS: piperacillin-tazobactam 3.375 GM in sodium chloride 0.9% (plus) 50 ML IV ×3 (04:45→20:34)
--- OUTSIDE RECORDS SUMMARY | 2024-09-05 06:37 | XMS_ITS | Clinical Summary ---
Author Organization [facility] Address [address] [place] [address] Phone Care Team Providers Care Truck Packer Name Role Phone Bassam Padilla MD Primary Care Provider [phone] Allergies Active Allergy Reactions Criticality Noted Date [...] Date Type Department Care Team Description 09/03/2024 Results Follow-Up [address] [phone] Bassam Padilla MD CBC WITH DIFFERENTIAL, COMPREHENSIVE METABOLIC PANEL, LIPID PANEL, TSH REFLEXIVE 09/03/2024 Orders Only [address] [phone] Provider, Abstract 09/02/2024 11:00 AM CDT Office Visit [address] [phone] Bassam Padilla MD Medicare annual wellness visit, subsequent (Primary Dx); Moderate episode of recurrent major depressive disorder; Mild intermittent asthma without complication; Tobacco use disorder; Allergy to bee sting; Chronic midline low back pain with bilateral sciatica; Incisional hernia, without obstruction or gangrene - upper midline to the left; History of malignant neoplasm of large intestine 09/02/[address] [phone] Bassam Padilla MD Provider Call 08/31/[address] [address] Bassam Padilla MD Provider Call 08/19/[address] [phone] Bassam Padilla MD Appointment 08/17/2024 External Device [...] on file Legal Sex Male 1:01 AM PHONE MANAGER Gender Identity Not on file Sexual [...] st Contact Info) Description 03/07/2025 11:00 AM PHONE MANAGER Office Visit [facility] Medicine [place] [id number] [address] Niya Mccormick, [facility] [address] [facility] [address] [place] [phone] Health Maintenance Due Date Last Done Comments [...] VACCINE Completed 06/01/2019, 11/24, 03/26/2018 Medicare Advantage ([place]) Preventative Visit/Annual Wellness Visit Completed 09/02/2024, 04/15/2023, [...] CDT HEMOGLOBIN A1C Routine 03/27/2023 9:16 AM PHONE MANAGER Prediabetes History of malignant neoplasm of large intestine Chronic diarrhea Anemia, unspecified type Screening for prostate cancer from Last 3 Months or Most Recently Relevant to Health Maintenance Results * TSH REFLEXIVE (09/02/2024 11:12 AM CDT) TSH 1.20 0.40 - 4.50 mIU/L [facility] Comment: Test Performed at: [facility] [address] [place] [address] Byron Tineo MD Blood 09/02/2024 11:1 2 AM CDT 09/03/2024 1:02 AM CDT us Bassam Padilla MD CHEMISTRY ORDERABLES Final Resul t [facility] [phone] [facility] [address] [address] * (ABNORMAL) CBC WITH DIFFERENTIAL (09/02/2024 11:12 [...] [facility] Comment: Test Performed at: [facility] [address] [facility] [place] [address] Byron Tineo MD Blood 09/02/2024 11:1 2 AM CDT 09/03/2024 1:02 AM CDT us Bassam Padilla MD HEMATOLOGY ORDERABLES Final Resu lt [facility] [phone] [facility] [address] [facility] [place] [address] * (ABNORMAL) LIPID PANEL (09/02/2024 11:12 AM [...] factors. LDL-C is now calculated using the Aris-Reese calculation, which is a validated novel method providing better accuracy than the Friedewald equation in the estimation of LDL-C. Aris SS et al. NAYE. 2013;310(19): 6064-8591 (http://education.[employer]ong[employer] Jielai Communication.[place]ree/faq/IVT395) CHOL/HDL RATIO 2.4 <5.0 (calc) [facility] NON-HDL CHOLESTEROL 90 <130 mg/dL (calc) [facility] Comment: For patients with diabetes plus 1 major ASCVD risk factor, treating to a non-HDL-C goal of <100 mg/dL (LDL-C of <70 mg/dL) is considered a therapeutic option. Test Performed at: [facility] [address] [address] Byron Tineo MD Blood 09/02/2024 11:1 2 AM CDT 09/03/2024 1:02 AM CDT us Bassam Padilla MD CHEMISTRY ORDERABLES Final Resul t [facility] [phone] [facility] [address] [address] * COMPREHENSIVE METABOLIC PANEL (09/02/2024 11:12 AM [...] [facility] Comment: Test Performed at: [facility] [address] [address] Byron Tineo MD Blood 09/02/2024 11:1 2 AM CDT 09/03/2024 1:02 AM CDT us Bassam Padilla MD CHEMISTRY ORDERABLES Final Resul t [facility] [phone] [facility] [address] [address] * COLONOSCOPY REPORT (09/11/2023 2:26 PM CDT) Narrative Procedure Note Reid Obrien DO - 09/11/2023 2:26 PM CDT [facility] GI Patient Name: Dimas Prado Procedure Date: [...] PM Scope Out: 2:20:22 PM [address] [place] Reid Obrien DO GI PROCEDURE ORDERABLES Final Result * HEMOGLOBIN A1C (03/27/2023 9:16 AM PHONE MANAGER) HEMOGLOBIN A1C 5.4 <5.7 % of total Hgb [facility] Comment: For the purpose of screening for the presence of diabetes: <5.7% Consistent with the absence of diabetes 5.7-6.4% Consistent with increased risk for diabetes (prediabetes) > or =6.5% Consistent with diabetes This assay result is consistent with a decreased risk of diabetes. Currently, no consensus exists regarding use of hemoglobin A1c for diagnosis of diabetes in children. According to [place] Diabetes Association (ADA) guidelines, hemoglobin A1c <7.0% represents optimal control in non- diabetic patients. Different metrics may apply to specific patient populations. Standards of Medical Care in Diabetes(ADA). ESTIMATED AVERAGE GLUCOSE (MG/DL) 108 mg/dL [facility] ESTIMATED AVERAGE GLUCOSE (MMOL/L) 6.0 mmol/L [facility] Comment: HbA1c performed on [employer] platform. Test Performed at: [facility] [address] [place] [address] Byron Tineo MD Blood 03/27/2023 9:16 AM PHONE MANAGER 03/28/2023 9:47 AM PHONE MANAGER Geneva Mcleod CERTIFIED LOW VISION THERAPIST CHEMISTRY ORDERABLES Final Result [facility] [phone] [facility] [address] [address] from Last 3 Months or Most Recently Relevant to Health Maintenance Insurance AETNA O MCR Advance Directives For more information, please contact: [phone] * Full Code (Latest Code Status on File) Date Activated Date Inactivated Comments 09/11/2023 1:35 PM 09/11/2023 5:27 PM Care Teams Truck Packer Relationship Specialty Start Date End Date Bassam Padilla MD [address] [place] [phone] PCP - General Family Practice 10/15/23
--- OUTSIDE RECORDS SUMMARY | 2024-09-05 06:37 | XMS_ITS | Encounter Summary ---
Author Organization [facility] Address [address] [place] [address] Care Team Providers Care Glove Printer Name Role Phone Coleman Montero MD Primary Care Provider [phone] Encounter Details Date Type Department Care Team (Latest Contact Info) Description 05/01/1998 Outpatient Historical [address] [phone] Shaw Schmidt, DO [address] [place] [address] Spasm of muscle (Primary Dx) Social History Tobacco Use Types Packs/Day Years Used Date Smoking Tobacco: Never Assessed Sex and Gender Information Value Date Recorded Sex Assigned at Not on file Legal Sex Male 5:53 AM DRUGLESS DOCTOR Gender Identity Not on file Sexual Orientation Not on file documented as of this encounter Plan of Treatment Not on file documented as of this encounter Visit Diagnoses Diagnosis Spasm of muscle- Primary documented in this encounter Care Teams Glove Printer Relationship Specialty Start Date End Date Coleman Montero MD [address] [place] [phone] PCP - General Family Practice 08/18/13 documented as of this encounter
--- OUTSIDE RECORDS SUMMARY | 2024-09-05 06:37 | XMS_ITS | Encounter Summary ---
Author Organization [facility] Address [address] [place] [address] Care Team Providers Care Free Lance Model Name Role Phone Bassam Padilla MD Primary Care Provider [phone] Reason for Visit * Reason Comments Provider Call Encounter Details Date Type Department Care Team ([facility] st Contact Info) Description 08/31/2024 Telephone [facility] [place] [address] [phone] Bassam Padilla MD [address] [phone] Provider Call Social History Tobacco [...] on file Legal Sex Male 1:01 AM CLINICAL RESEARCH NURSE COORDINATOR Gender Identity Not on file Sexual Orientation Not on file documented as of this encounter Miscellaneous Notes * Telephone Encounter - Anastasia Le - 08/31/2024 3:05 PM CDT Copied from [facility] #[id number]. Topic: [id number] Call >> Aug 31, 2024 2:58 PM Anastasia Serna wrote: Caller is requesting to speak with Clinical Care Team. Caller Name: [facility] Callback Number: [phone] Clinician Type: Other healthcare professional not listed above Call Notes: Has TAN and is requesting records. Transferred to CI. Is this addressing an immediate patient care need? No documented in this encounter Plan of Treatment Upcoming Encounters Date Type Department Care Team (Late st Contact Info) Description 03/07/2025 11:00 AM CLINICAL RESEARCH NURSE COORDINATOR Office Visit [facility] [place] [address] [facility] [address] [place] [address] Niya Mccormick FNP [address] [facility] [address] [place] [address] documented as of this encounter Visit Diagnoses Not on filedocumented in this encounter Additional Health Concerns Assessment Noted Time PHQ-9 Depression Total Score: 2 08/14/19 24 6:00 PM CDT documented as of this encounter Care Teams Free Lance Model Relationship Specialty Start Date End Date Bassam Padilla MD [address] [facility] [address] [place] [address] PCP - General Family Practice 10/15/23 documented as of this encounter
--- OUTSIDE RECORDS SUMMARY | 2024-09-05 06:37 | XMS_ITS | Encounter Summary ---
Author Organization [facility] Address [address] [place] [address] Care Team Providers Care Ticket Clerk Name Role Phone Coleman Montero MD Primary Care Provider [phone] Encounter Details Date Type Department Care Team (Latest Contact Info) Description 06/12/1998 Outpatient Historical [facility] [address] [place] [address] Abnormal involuntary movements(781.0) (Primary Dx) Social History Tobacco Use Types Packs/Day Years Used Date Smoking Tobacco: Never Assessed Sex and Gender Information Value Date Recorded Sex Assigned at Not on file Legal Sex Male 5:53 AM MANAGER CENTER Gender Identity Not on file Sexual Orientation Not on file documented as of this encounter Plan of Treatment Not on file documented as of this encounter Visit Diagnoses Diagnosis Abnormal involuntary movements(781.0)- Primary Abnormal involuntary movements documented in this encounter Care Teams Ticket Clerk Relationship Specialty Start Date End Date Coleman Montero MD [address] [place] [address] PCP - General Family Practice 08/18/13 documented as of this encounter
--- OUTSIDE RECORDS SUMMARY | 2024-09-05 06:37 | XMS_ITS | Encounter Summary ---
Author Organization [facility] Address [address] [place] [address] Care Team Providers Care Cotton Expert Name Role Phone Bassam Padilla MD Primary Care Provider [phone] Encounter Details Date Type Department Care Team (Latest Contact Info) Description 09/03/2024 Results Follow-Up [facility] Medicine [address] [address] Bassam Padilla MD [address] [place] [address] CBC WITH DIFFERENTIAL, COMPREHENSIVE METABOLIC PANEL, LIPID PANEL, TSH REFLEXIVE Social History Tobacco Use Types Packs/Day Years [...] on file Legal Sex Male 1:01 AM MUSICIAN INSTRUMENTAL Gender Identity Not on file Sexual Orientation Not on file documented as of this encounter Plan of Treatment Upcoming Encounters Date Type Department Care Team (Late st Contact Info) Description 03/07/2025 11:00 AM MUSICIAN INSTRUMENTAL Office Visit [facility] Medicine [place] [address] [place] [address] Niya Mccormick, PLANNING AIDE 1312 [facility] [address] [place] [address] documented as of this encounter Visit Diagnoses Not on filedocumented in this encounter Additional Health Concerns Assessment Noted Time PHQ-9 Depression Total Score: 1 09/03/19 25 10:32 AM CDT documented as of this encounter Care Teams Cotton Expert Relationship Specialty Start Date End Date Bassam Padilla MD [facility]2 [facility] [address] [place] [address] PCP - General Family Practice 10/15/23 documented as of this encounter
--- OUTSIDE RECORDS SUMMARY | 2024-09-05 06:37 | XMS_ITS | Encounter Summary ---
Author Organization [facility] Address [address] [place] [address] Care Team Providers Care Metal Pourer Name Role Phone Coleman Montero MD Primary Care Provider [phone] Encounter Details Date Type Department Care Team (Latest Contact Info) Description 07/07/1998 Outpatient Historical [address] [phone] Shaw Schmidt, DO [address] [place] [address] Essential and other specified forms of tremor (Primary Dx) Social History Tobacco Use Types Packs/Day Years Used Date Smoking Tobacco: Never Assessed Sex and Gender Information Value Date Recorded Sex Assigned at Not on file Legal Sex Male 5:53 AM 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
--- OUTSIDE RECORDS SUMMARY | 2024-09-05 06:37 | XMS_ITS | Encounter Summary ---
Author Organization [facility] Address [address] [place] [address] Care Team Providers Care Belt Puncher Name Role Phone Coleman Montero MD Primary Care Provider [phone] Encounter Details Date Type Department Care Team (Late st Contact Info) Description 02/21/2007 Emergency [facility] Emergency Department [address] [place] [address] Ed, Physician NO ADDRESS ON [...] on file Legal Sex Male 5:53 AM PATHOLOGY TRANSCRIPTIONIST Gender Identity Not on file Sexual Orientation Not on file documented as of this encounter Plan of Treatment Not on file documented as of this encounter Procedures Procedure Name Priority Date/Time Associated Diagnosis Comments CBC WITH DIFFERENTIAL Routine 02/21/2007 11:17 AM PATHOLOGY TRANSCRIPTIONIST documented in this encounter Results * (ABNORMAL) CBC WITH DIFFERENTIAL (02/21/2007 11:17 AM PATHOLOGY TRANSCRIPTIONIST) WBC 11.7(H) 4.5 - 11.0 K/ul INTERFACE [...] K/ul INTERFACE SYSTEM 02/21/2007 11:1 7 AM PATHOLOGY TRANSCRIPTIONIST us Tariq Mays MD HEMATOLOGY ORDERABLES Edited INTERFACE SYSTEM Refer to clinic/hospital department documented in this encounter Visit Diagnoses Diagnosis Cellulitis and abscess of upper arm and forearm Other convulsions Tobacco use disorder Personal history of allergy to analgesic agent Dog bite(E906.0) Dog bite Unspecified place of occurrence documented in this encounter Care Teams Belt Puncher Relationship Specialty Start Date End Date Coleman Montero MD [address] [place] [phone] PCP - General Family Practice 08/18/13 documented as of this encounter
--- OUTSIDE RECORDS SUMMARY | 2024-09-05 06:37 | XMS_ITS | Encounter Summary ---
Author Organization [facility] Address [address] [place] [address] Care Team Providers Care Aging Box Hand Name Role Phone Bassam Padilla MD Primary Care Provider [phone] Reason for Visit * Reason Comments Provider Call Encounter Details Date Type Department Care Team ([facility] st Contact Info) Description 09/02/2024 Telephone [facility] Medicine [place] [address] [address] Bassam Padilla MD [address] [address] Provider Call Social History Tobacco [...] on file Legal Sex Male 1:01 AM PROCEDURAL NURSE Gender Identity Not on file Sexual Orientation Not on file documented as of this encounter Miscellaneous Notes * Telephone Encounter - Chanel Beatty - 09/02/2024 4:28 PM CDT Spoke with Massiel from [facility] and patient has went to ER. They will share information as they receive it from ER * Telephone Encounter - Jeffrey Velarde - 09/02/2024 12:52 PM CDT Copied from [facility] #[id number]. Topic: [id number] Call >> Sep 02, 2024 12:47 PM Jeffrey Serna wrote: Caller is requesting to speak with Clinical Care Team. Caller Name: Massiel collins/ [facility] (Other) Callback Number: [phone] Clinician Type: Other healthcare professional not listed [...] st Contact Info) Description 03/07/2025 11:00 AM PROCEDURAL NURSE Office Visit [facility] Medicine [place] [address] [address] Niya Mccormick FNP 13[address] [facility] [address] [place] [address] documented as of this encounter Visit Diagnoses Not on filedocumented in this encounter Additional Health Concerns Assessment Noted Time PHQ-9 Depression Total Score: 1 09/03/19 10:32 AM CDT documented as of this encounter Care Teams Aging Box Hand Relationship Specialty Start Date End Date Bassam Padilla MD [address] [place] [address] PCP - General Family Practice 10/15/23 documented as of this encounter
--- OUTSIDE RECORDS SUMMARY | 2024-09-05 06:37 | XMS_ITS | Clinical Summary ---
Author Organization [facility] Address [address] [place] [address] Phone Care Team Providers Care Study Lead Name Role Phone Coleman Montero MD Primary Care Provider [phone] Allergies Active Allergy Reactions Criticality Noted Date [...] often do you attend chur ch or cheondoism services? More than 4 times per year 02/11/2020 Do you belong to any clubs o r organizations such as rastafari groups, unions, fraternal or athletic groups, or [...] file Legal Sex Male 5:[address] Gender Identity Not on file Sexual Orientation [...] CDT Respiratory Rate 16 02/11/2020 9:[address] Oxygen Saturation 98% 07/20/2020 10:03 AM CDT Inhaled Oxygen Concentration - - Weight 117 kg (258 lb) 07/20/2020 10:03 AM CDT Height 180.3 cm (5' 11 ) 07/20/2020 10:03 AM CDT Body Mass Index 35.98 07/20/2020 10:03 AM CDT Plan of Treatment Health Maintenance Due Date Last Done Comments HEPATITIS B VACCINES (1 of 3 - 19+ 3-dose series) 12/18/1986 Pre-Diabetes and Diabetes Screening 02/10/2023 02/11/2020, 08/13/2019 DTAP/TDAP/TD VACCINES (2 - T d or Tdap) 01/29/2024 01/28/2014 [place] ([place]) Preventative Visit/Annual Wellness Visit 02/25/2024 02/11/2020 COLORECTAL SCREENING 05/11/2024 05/12/2019, 05/12/2019, 02/27/2016, Additional history exists INFLUENZA VACCINE (#1) 2024 , 11/02/2018, 12/06/2017, Additional history exists ZOSTER VACCINE Completed 06/01/2019, 11/24, 03/26/2018 Procedures Procedure Name Priority Date/Time Associated Diagnosis Comments HEMOGLOBIN A1C Routine 02/11/2020 9:[address] Prediabetes COLONOSCOPY REPORT 05/12/2019 11 :09 AM CDT from Last 3 Months or Most Recently Relevant to Health Maintenance Results * (ABNORMAL) HEMOGLOBIN A1C (02/11/2020 9:[address]) HEMOGLOBIN A1C 6.0(H) See Comment % 02/11/2020 8:[address] [facility] EST. AVG GLUCOSE, A1C 126 mg/dL 02/11/2020 8:[address] [facility] Blood Venipuncture / Unknown 02/11/2020 9:[address] 02/11/2020 8:[address] Narrative [facility] - 02/11/2020 8:[address] HGB A1C INTERPRETATION NORMAL: <5.7% PRE-DIABETES: 5.7 - 6.4% DIABETES: 6.5% OR GREATER Falsely low A1C measurements can occur when: 1. Anemia and/or hemolytic anemia is present. 2. Hemoglobin variants present. 3. Renal failure. 4. Transfusion of blood product in the last 120 days. We recommend ordering a fructosamine test([id number]) to more accurately assess glycemic status if any of the above conditions are present. us Coleman Montero MD CHEMISTRY ORDERABLES Final Resu lt [facility]# [id number] [address] [place] [address] * COLONOSCOPY REPORT (05/12/2019 11:09 AM CDT) Narrative Procedure Note Trav Villalta MD - 05/12/2019 11:[address] [facility] GI Patient Name: Dimas Prado Procedure Date: [...] In: 10:58:15 AM Scope Out: 11:06:05 AM [address] [place], [place] Trav Villalta MD GI PROCEDURE ORDERABLES Fin al Result from Last 3 Months or Most Recently Relevant to Health Maintenance Insurance [place] Member Subscriber Plan / Payer (Ef fective 2013-Present) Name:Dimas Prado Relation to Subscriber:Self Name:Eve, Dimas Gipson Payer ID:[id number] Group ID:Not on file Type:Medicaid Address: [address] Advance Directives For more information, please contact: [phone] * Full Code (Latest Code Status on [...] 9:34 AM 05/26/2013 11:53 AM Care Teams Study Lead Relationship Specialty Start Date End Date Coleman Montero MD [address], [place] [address] PCP - General Family Practice 08/18/13
--- OUTSIDE RECORDS SUMMARY | 2024-09-05 06:37 | XMS_ITS ---
Author Organization [facility] Address [address] [place] [address] Phone Care Team Providers Care Health Care Coordinator Name Role Phone Coleman Montero MD Primary Care Provider Active Problems Problem Noted Date Diagnosed Date [...]
--- OUTSIDE RECORDS SUMMARY | 2024-09-05 06:37 | XMS_ITS | Encounter Summary ---
Author Organization [facility] Address [address] [place] [address] Care Team Providers Care Cigar Brander Name Role Phone Coleman Montero MD Primary Care Provider [phone] Encounter Details Date Type Department Care Team (Late st Contact Info) Description 08/15/2005 Emergency [facility] Emergency Department [address] 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
--- OUTSIDE RECORDS SUMMARY | 2024-09-05 06:37 | XMS_ITS | Encounter Summary ---
Author Organization [facility] Address [address] [place] [address] Care Team Providers Care Dial Brusher Name Role Phone Coleman Montero MD Primary Care Provider [phone] Encounter Details Date Type Department Care Team (Latest Contact Info) Description 11/19/2004 Outpatient Historical [facility] Occupational Medicine [address] [place] [phone] Eran Barajas MD NO ADDRESS ON FILE Routine medical exam (Primary Dx) Social History Tobacco Use Types Packs/Day Years Used Date Smoking Tobacco: Never Assessed Sex and Gender Information Value Date Recorded Sex Assigned at Not on file 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
--- OUTSIDE RECORDS SUMMARY | 2024-09-05 06:37 | XMS_ITS | Encounter Summary ---
Author Organization [facility] Address [address] [place] [address] Care Team Providers Care Temple Meat Cutter Name Role Phone Coleman Montero MD Primary Care Provider [phone] Encounter Details Date Type Department Care Team (Latest Contact Info) Description 03/16/2005 Outpatient Historical [facility] [place] [address] [place] [address] Jaden Pardo MD [address] [place] [address] RENAL COLIC (Primary Dx) Social History Tobacco Use Types Packs/Day Years Used Date Smoking Tobacco: Never Assessed Sex and Gender Information Value Date Recorded Sex Assigned at Not on file 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 HISTORY: Left-sided [...] Primary documented in this encounter Care Teams Temple Meat Cutter Relationship Specialty Start Date End Date Coleman Montero MD [address] [place] [address] PCP - General Family Practice 08/18/13 documented as of this encounter
--- OUTSIDE RECORDS SUMMARY | 2024-09-05 06:37 | XMS_ITS ---
Author Organization [facility] Address [address] [place] [address] Phone Care Team Providers Care Division Road Supervisor Name Role Phone Bassam Padilla MD Primary Care Provider [phone] Active Problems Problem Noted Date Diagnosed Date [...]
--- OUTSIDE RECORDS SUMMARY | 2024-09-05 06:37 | XMS_ITS | Encounter Summary ---
Author Organization [facility] Address 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 [place] [address] [facility] [address] [place] [address] Niya Mccormick, PRODUCTION OFFICER [address] [facility] [address] [place] [address] documented as of this encounter Procedures [...] documented as of this encounter Care Teams Display Manager Relationship Specialty Start Date End Date Bassam Padilla MD [address] [facility] [address] [place] [address] PCP - General Family Practice 10/15/23 documented as of this encounter
--- OUTSIDE RECORDS SUMMARY | 2024-09-05 06:37 | XMS_ITS | Encounter Summary ---
Author Organization [facility] Address [address] [place] [address] Care Team Providers Care Lamp Cleaner Street Light Name Role Phone Coleman Montero MD Primary Care Provider [phone] Encounter Details Date Type Department Care Team (Latest Contact Info) Description 03/16/2005 Outpatient Historical [facility] Imaging Services [address] 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
--- NOTE | 2024-09-05 10:52 | P.PN_ITS ---
Subjective 2 Subjective: No acute events overnight. Patient has remained hemodynamically stable and afebrile. Awaiting bowel functions. Vitals/I&O/Wt Last Vital Signs Temp 97.6 F 09/05/24 07:43 Pulse 66 09/05/24 07:43 Resp 18 09/05/24 07:43 BP 128/71 09/05/24 07:43 Pulse Ox 95 09/05/24 07:43 O2 Del Method Room Air 09/05/24 07:43 O2 Flow Rate 2 09/04/24 05:00 09/04/24 09/05/24 09/05/24 22:59 06:59 14:59 Intake Total 1507.5 / 1657.5 1117.5 / 2775.0 50 / 50 Output Total 625 / 1600 725 / 2325 Balance 882.5 / 57.5 392.5 / 450.0 50 / 50 Weight last 48 hrs Weight 85.729 kg Weight 87.543 kg Weight 87.77 kg Weight 87.906 kg Weight 81.647 kg Physical Exam 2 Narrative: General: No acute distress, AO x3 HEENT: PERRLA, pupils bilaterally equal and reactive, pallors not present Chest: Normal vesicular breath sounds, no added sounds, equal good air entry bilaterally CVS: S1-S2 regular, no murmurs, no tachycardia, no gallops, no rubs Abdomen: post op abdomen EXT: no edema clubbong or cyanosis Neuro: no focal deficits Urinary Catheter Management: [place]ern: Cath Placed During This Visit: yes, but has since been removed by the nurse Reason for Continuing Indwelling Catheter: Decision to DC Catheter Urinary Catheter Date of Insertion: 09/04/24 Urinary Catheter Time of Insertion: 00:29 Date Urinary Catheter Removed: 09/04/24 Time Urinary Catheter Discontinued: 14:00 Data 09/05/24 01:23 09/05/24 01:23 A&P Assessment and plan 1. Incarcerated ventral hernia: 2. Leukocytosis: Plan: 58-year-old male brought to the emergency room today with incarcerated ventral hernia for which he has currently undergone laparotomy, reduction of the hernia and adhesiolysis today. Advance diet, anticoagulation as per surgical team. Out of bed to chair. Encourage patient to ambulate. For now continue with IV Zosyn. Can plan to complete a 3-day course of IV antibiotics. Discussed in detail with the patient regarding need for smoking cessation to prevent from recurrence of hernia. Patient verbalizes understanding. For now we will continue with nicotine patch. Will provide patient resources for help with quitting of smoking. For now we will add Tessalon Perles as needed for cough. Continue with current pain medication with Toradol as needed. If needed can add low-dose morphine every 4 hours as needed for pain. Incentive spirometry. Start on DuoNeb every 6 hour. Patient takes Atrovent 4 times daily at home. Full code Lovenox for DVT prophylaxis Clear liquid diet. Thank you for involving us in care of Mr. Prado. Please call with any questions. PDMP PDMP Reviewed: Not Reviewed Attestations 2 Medical Necessity Statement*: As per primary team Diagnoses Incarcerated ventral hernia K43.6 Leukocytosis D72.829
--- NOTE | 2024-09-05 17:10 | P.OP_ITS ---
Operative Report Date of procedure: late evening of September 03 and into September 04, 2024 - I was not able to edit/finish my operative note that I initiated on 09/04/2024 due to multiple error messages that said the note was in the ER chart visit account: This document is associated to visit [id number] but [id number] is the current active visit.Please close and reopen the Chart to deselect the active visit. I spoke with IT and [employer] personnel over the phone on multiple occasions and it was decided to start a new Op NOte. 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 Remote history of right hemicolectomy for cancer Post-op diagnosis: Mechanical bowel obstruction secondary to multiple incarcerated chronic ventral hernias Remote history of right hemicolectomy for cancer Extensive intra-abdominal adhesions Extensive inter-bowel adhesions Extensive adhesions between small bowel and hernia sacs Extensive scar tissue at the previous laparotomy site Procedure done: Laparotomy Extensive lysis of adhesions lasting approximately 170 minutes Omentectomy Reduction of ventral hernias X4 Excision of hernia sacs Placement of 10 mm Flat MAXINE drain Placement of Peco wound Vac Specimens removed/disposition: 1. Omentum sent for histopathologic examination 2. Hernia sac for histopathologic examination Surgeon: Alana Gregorio MD Estimated blood loss: 200 cc Complications: None apparent Findings: Extensive scaring at the pervious laparotomy site fascia and very dilated incarcerated loops of small bowel were present. 2 hernias located just left- lateral to the umbilicus (1 locatged superiorly and 1 located inferiorly) - the larger hernia sac and contents = approx. 9 cm by 5 cm with a 2.7 cm neck; hernia to neck ratio 3.3 AND smaller hernia sac and contents = approx. 7 cm by 5 cm with a 2.2 cm neck; hernia to neck ratio 2.8. Two small 1 cm fat-containing hernia defects were present located superiorly to the larger ones, in the midiline. Incarcerated omentum was present in the most interiorly located hernia. Extensive adhesions and scar tissue adjacent and circumferential to the hernia necks in the subperitoneal space were present. Extensive intraabdominal and inter-bowel adhesions were present. Procedure: Prior to the surgery, the surgery and what it would entail were discussed with the patient in detail, including the risks, benefits, and potential alternative treatment options. Risks included, but were not limited to infection, bleeding, injury to intraabdominal organs/bowel, hernia formation, hernia recurrence, mesh migration or mesh infection if mesh were to be used, postoperative abscess, need for placement of a surgical drains, need for further surgery or interventional radiology procedures, poor wound healing especially in the setting of smoking history, and heart or lung complications. The patient has had these hernias for several years and unfortunately did not get them repaired. I further warned the patient, that due to smoking history, obesity, possible chronic lung disease, emergency surgery (as opposed to planned elective hernia repair), that he has a higher risk of surgical site infection and will likely have a hernia recurrence. But that we needed to go to surgery due to incarceration, bowel obstruction, and hernia neck ratio (HNR) 2.5 or higher which has greater risk of incarceration, strangulation, and necrosis. All question were answered and the patient wished to proceed with surgery. After informed consent was obtained, the patient was taken back to the operative suite and placed in a supine position on the operating room table. General anesthesia and endotracheal intubation were accomplished by the anesthesiologist per anesthesia protocol. A timeout was performed verifying the correct patient, procedure to be performed, surgeon, patient medication allergies, and preoperative antibiotics. Utilizing a scalpel blade a midline incision was made incorporating the previous midline laparotomy cicatrix. The incision was deepened first with Bovie electrocautery, then with fine Metzenbaum scissors being careful to no injure the bowel below. Extensive scaring, very dilated incarcerated loops of small bowel, and adhesions made it impossible to remove the hernia sacs [larger hernia sac and contents = approx. 9 cm by 5 cm with a 2.7 cm neck; hernia to neck ratio 3.3 AND smaller hernia sac and contents = approx. 7 cm by 5 cm with a 2.2 cm neck; hernia to neck ratio 3.2] without entering the hernia sacs. The hernia sacs were entered sharply with Metzenbaum scissors. The small bowel loops were carefully dissected off of the hernia sacs with Metzenbaum scissors. The intraabdominal and inter-bowel adhesions were also carefully divided with Metzenbaum scissors. At the rim/necks of the hernias and all of the adjacent-circumferential subperitoneal space there were extensive adhesions. The fascial edges of both hernia defect were exposed and the hernia sacs were completely excised and passed of the field to be sent for pathologic examination. Notwithstanding the small bowel was still not able to be manually reduced. In addition to incarcerated small bowel there was an incarcerated portion of greater omentum that was also adherent to the rim/neck of the larger hernia. This was divided with Bovie electrocautery, bleeding points were stopped with Bovie electrocautery as they were encountered. Some of the bleeding points were stopped with suture ligation with 3-0 Vicryl suture. The portion of greater omentum was passed of the field to be sent for pathologic examination. There was a small bridge of scar tissue between the hernia defects, this had to be divided to allow for manual reduction of the incarcerated small bowel. The loops of bowel were significantly dilated but there were no signs of joaquim bowel ischemia. These loops of bowel were thoroughly inspected prior to reduction, and no bowel injury or ischemia was noted. The loops of small bowel were reduced. The extensive adhesions and scar tissue adjacent and circumferential to the hernia necks in the subperitoneal space were carefully dissected with Metzenbaum scissors. This allowed for running the bowel from the ligament of Trietz to the terminal ileum; no injury to bowel, signs of bowel ischemia, obstruction, or bleeding were noted. It was noted, that after manual reduction, the small bowel loops were less dilated. The extensive adhesions and scar tissue extended further in all directions in the subperitoneal space, superiorly, inferiorly, and laterally. Extensive adhesiolysis lasting 170 minutes was performed. The retrorectus space was not able to be entered due to extensive scar tissue. The abdomen was irrigated with more than 5 L of warm sterile saline. The two small 1 cm fat containing hernias that were located superiorly to the two larger defect in the midline were reduced, cleared of adhesions, and the scar tissue at the edges were freed up with Metzenbaum scissors. A 10 mm flat MAXINE drain was placed intraabdominally and exited the skin in the right lumbar region; it was secured to the skin with 2-0 Nylon suture. All sponge needle and instrument counts were noted to be correct. To avoid further prolonged operative times that would be needed to perform further adhesiolysis and excision of scar tissue coupled with possible concern for potential bacterial translocation, a tension free primary repair was performed. The two small 1 cm superiorly located defects were closed in a figure of eight fashion with #1 PDS suture. The fascia (at the site of the two larger defects) was reapproximated in a tension-free fashion with a #1 looped PDS. A portion of the redundant skin edges were excised sharply to facilitate optimal skin and subcutaneous closure. The subcutaneous tissue was irrigated with copious warm saline. The subcutaneous tissue was reapproximated with 3-0 Vicryl suture. Surgical yamileth were utilized to reapproximated the skin edges with ample space between them to allow for potential fluid drainage. A Peco negative pressure wound dressing was placed overtop. The patient tolerated the procedure well and was transferred to the postanesthesia care unit in stable and satisfactory condition.
--- NOTE | 2024-09-05 18:45 | PM.PN ---
Subjective Subjective: The patient was seen and evaluated at bedside today. He denied nausea or vomiting. He has been passing flatus and denied abdominal distention. He remains afebrile and hemodynamically normal. White blood cell count 8.66 today. He is not requiring any supplemental oxygen. Patient has voided without complication after removal of Kern catheter yesterday. Patient's pain had previously been controlled with IV Tylenol and Toradol every 8 hours. Vitals/I&O/Wt Last Vital Signs Temp 97.7 F 09/05/24 16:00 Pulse 71 09/05/24 16:00 Resp 18 09/05/24 16:00 BP 143/80 09/05/24 16:00 Pulse Ox 97 09/05/24 16:00 O2 Del Method Room Air 09/05/24 16:00 O2 Flow Rate 2 09/04/24 05:00 09/05/24 09/05/24 09/05/24 06:59 14:59 22:59 Intake Total 1117.5 / 2775.0 910 / 910 397 / 1307 Output Total 725 / 2325 975 / 975 Balance 392.5 / 450.0 -65 / -65 397 / 332 Weight last 48 hrs Weight 189 lb Weight 193 lb Weight 193 lb 8 oz Weight 193 lb 12.8 oz Physical Exam Const: COMMON NORMALS: no acute distress, patient oriented x3 and alert Chest: COMMONS NORMALS: normal inspection of the chest Resp: COMMON NORMALS: normal respiratory effort and No use of accessory muscles GI: COMMON NORMALS: Soft to palpation PALPATION: Yes Soft to palpation and No Tenderness to palpation present (GI) OTHER: Non-distended. No rebound tenderness or gaurding. Midline incision - Peco dressing intact - with minor shadowing. The MAXINE drain bulb has serosanguineous fluid. Neuro: COMMON NORMALS: patient oriented x3 SENSORIUM/ORIENTATION: Yes alert Urinary Catheter Management: Kern: Cath Placed During This Visit: yes, but has since been removed by the nurse Reason for Continuing Indwelling Catheter: Decision to DC Catheter Urinary Catheter Date of Insertion: 09/04/24 Urinary Catheter Time of Insertion: 00:29 Date Urinary Catheter Removed: 09/04/24 Time Urinary Catheter Discontinued: 14:00 Data 09/05/24 01:23 09/05/24 01:23 A&P Assessment and plan 1. Incarcerated ventral hernia: -- Mechanical bowel obstruction secondary to multiple incarcerated chronic ventral hernias -- Remote history of right hemicolectomy for cancer -- Extensive intra-abdominal adhesions -- Extensive inter-bowel adhesions -- Extensive adhesions between small bowel and hernia sacs -- Extensive scar tissue at the previous laparotomy site Plan: --Return of bowel function noted -- Advance to full liquid diet for lunch, then to a regular diet if full liquid diet as tolerated -- Saline lock IV -- Ambulate 4 times daily -- Empty and record MAXINE drain, strip drainage tubing, removal of MAXINE drain timing to be determined -- As needed pain medications - need discharge pain regimen plan, according to the patient he cannot have prescription narcotic pain medications (?) -continue IV pain medications, transition to alternating ibuprofen and Tylenol. -- Appreciate assistance of hospitalist -- SCDs and subcu Lovenox -- Incentive spirometry every hour while awake -- Abdominal binder recommended for comfort/splinting -- supply chain design manager to assist with disposition planning 2. Ventral hernia: 3. Bowel obstruction: 4. Leukocytosis: PDMP PDMP Reviewed: Not Reviewed Attestations Medical Necessity Statement*: IV pain meds, advancement of diet, vital signs monitoring, hemodynamics. Coding Level of Care Code Acute Code for [facility] Diagnoses Incarcerated ventral hernia K43.6 Ventral hernia K43.9 Bowel obstruction K56.609 Leukocytosis D72.829
[2024-09-06] VITALS (10 sets, daily range): BP systolic 138–157; BP diastolic 76–87; PULSE 64–93; RESP 15–18; TEMP 36.4–37.1; O2SAT 91–98
[2024-09-06] MEDS: piperacillin-tazobactam 3.375 GM in sodium chloride 0.9% (plus) 50 ML IV ×3 (04:21→19:52)
--- NOTE | 2024-09-06 10:07 | PC.SOCIAL ---
IMM Update pg 2 of IMM Updated and reviewed w/ patient. Copy provided and copy dated, initialed and placed in chart.
--- NOTE | 2024-09-06 13:01 | P.PN_ITS ---
Subjective 2 Subjective: seen this am passing gas but has not had a BM yet laying in bed appears comfortably Vitals/I&O/Wt Last Vital Signs Temp 97.8 F 09/06/24 11:11 Pulse 68 09/06/24 11:11 Resp 16 09/06/24 11:11 BP 145/83 09/06/24 11:11 Pulse Ox 97 09/06/24 11:11 O2 Del Method Room Air 09/06/24 11:11 O2 Flow Rate 2 09/04/24 05:00 09/05/24 09/06/24 09/06/24 22:59 06:59 14:59 Intake Total 410 / 1320 530 / 1850 286 / 286 Output Total 999 / 1974 1210 / 3185 800 / 800 Balance -590 / -655 -680 / -1335 -514 / -514 Weight last 48 hrs Weight 85.729 kg Weight 85.729 kg Physical Exam 2 Narrative: General: No acute distress, AO x3 HEENT: PERRLA, pupils bilaterally equal and reactive, pallors not present Chest: Normal vesicular breath sounds, no added sounds, equal good air entry bilaterally CVS: S1-S2 regular, Abdomen: post op abdomen, appropriately tender to palpation EXT: no edema or cyanosis Neuro: no focal deficits Urinary Catheter Management: Kern: Cath Placed During This Visit: yes, but has since been removed by the nurse Reason for Continuing Indwelling Catheter: Decision to DC Catheter Urinary Catheter Date of Insertion: 09/04/24 Urinary Catheter Time of Insertion: 00:29 Date Urinary Catheter Removed: 09/04/24 Time Urinary Catheter Discontinued: 14:00 Data 09/05/24 01:23 09/05/24 01:23 A&P Assessment and plan 1. Incarcerated ventral hernia: 2. Leukocytosis: Plan: 58-year-old male brought to the emergency room today with incarcerated ventral hernia for which he has currently undergone laparotomy, reduction of the hernia and adhesiolysis today. Advance diet, anticoagulation as per surgical team. Out of bed to chair. Encourage patient to ambulate. For now continue with IV Zosyn. Can plan to complete a 3-day course of IV antibiotics. Discussed in detail with the patient regarding need for smoking cessation to prevent from recurrence of hernia. Patient verbalizes understanding. For now we will continue with nicotine patch. Will provide patient resources for help with quitting of smoking. For now we will add Tessalon Perles as needed for cough. Continue with current pain medication with Toradol as needed. If needed can add low-dose morphine every 4 hours as needed for pain. Incentive spirometry. Start on DuoNeb every 6 hour. Patient takes Atrovent 4 times daily at home. Full code Lovenox for DVT prophylaxis Clear liquid diet. Thank you for involving us in care of Mr. Prado. Please call with any questions. 09/06/2024 seen this am continue IV abx await return of bowel function continue pain mgmt plans to go back to [place] PDMP PDMP Reviewed: Not Reviewed Attestations 2 Medical Necessity Statement*: As per primary team Diagnoses Incarcerated ventral hernia K43.6 Leukocytosis D72.829
--- NOTE | 2024-09-06 16:25 | P.PN_ITS ---
Subjective 2 Subjective: The patient was seen and evaluated at bedside today. He has ambulated more today and worked with physical therapy. According to nursing staff, they said he did fine and signed off of his case. He was advanced to a regular diet last night, and he is passing flatus but has still not had a bowel movement. He is taking Tylenol only for pain, as he has stated that he cannot take narcotic pain medications due to his drug court. Remains afebrile and hemodynamically normal. Vitals/I&O/Wt Last Vital Signs Temp 98.0 F 09/06/24 15:42 Pulse 72 09/06/24 15:42 Resp 15 09/06/24 15:42 BP 157/85 09/06/24 15:42 Pulse Ox 98 09/06/24 15:42 O2 Del Method Room Air 09/06/24 15:42 O2 Flow Rate 2 09/04/24 05:00 09/06/24 09/06/24 09/06/24 06:59 14:59 22:59 Intake Total 530 / 1850 406 / 406 Output Total 1210 / 3185 800 / 800 Balance -680 / -1335 -394 / -394 Weight last 48 hrs Weight 189 lb Weight 189 lb Physical Exam 2 Const: COMMON NORMALS: no acute distress, patient oriented x3 and alert Chest: COMMONS NORMALS: normal inspection of the chest Resp: COMMON NORMALS: normal respiratory effort and No use of accessory muscles GI: COMMON NORMALS: Soft to palpation and non-tender PALPATION: Yes Soft to palpation OTHER: Non-distended. No rebound tenderness or gaurding. Midline incision - Peco dressing intact - with minor shadowing. The MAXINE drain bulb has serosanguineous fluid. Neuro: COMMON NORMALS: patient oriented x3 SENSORIUM/ORIENTATION: Yes alert Urinary Catheter Management: Kern: Cath Placed During This Visit: yes, but has since been removed by the nurse Reason for Continuing Indwelling Catheter: Decision to DC Catheter Urinary Catheter Date of Insertion: 09/04/24 Urinary Catheter Time of Insertion: 00:29 Date Urinary Catheter Removed: 09/04/24 Time Urinary Catheter Discontinued: 14:00 Data 09/05/24 01:23 09/05/24 01:23 A&P Assessment and plan 1. Incarcerated ventral hernia: -- Mechanical bowel obstruction secondary to multiple incarcerated chronic ventral hernias -- Remote history of right hemicolectomy for cancer -- Extensive intra-abdominal adhesions -- Extensive inter-bowel adhesions -- Extensive adhesions between small bowel and hernia sacs -- Extensive scar tissue at the previous laparotomy site Plan: -- Awaiting a bowel movement, rectal suppository ordered, if patient refuses, may give MiraLAX -- Tolerating a regular diet -- Saline lock IV -- Ambulate 4 times daily -- Remove MAXINE drain today 09/06/2024 -- High risk of surgical site infection - chronic every day smoker, chronic lung disease, obesity, prolonged operative time -recommend continuing prophylactic antibiotics for 24 more hours (MAXINE drain removed today). -- As needed pain medications - need discharge pain regimen plan, according to the patient he cannot have prescription narcotic pain medications (?) - IV pain medications discontinued, transition to Tylenol only -- I had ordered ibuprofen yesterday, but the patient's stated that it causes seizures (?), consider oral Toradol as he had been tolerating Toradol IV previously (?) -- Appreciate assistance of hospitalist -- SCDs and subcu Lovenox -- Incentive spirometry every hour while awake -- Abdominal binder recommended for comfort/splinting -- assistant service manager to assist with disposition planning 2. Leukocytosis: PDMP PDMP Reviewed: Not Reviewed Attestations 2 Medical Necessity Statement*: IV antibiotics, pain control, await return of bowel function. Monitor VS and hemodynamics. Coding Level of Care Code Acute Code for [facility] Diagnoses Incarcerated ventral hernia K43.6 Leukocytosis D72.829
[2024-09-06] MEDS: polyethylene glycol 3350 Pkt 17 gm PO (17:34)
[2024-09-07] VITALS (9 sets, daily range): BP systolic 120–145; BP diastolic 75–88; PULSE 57–81; RESP 16–20; TEMP 36.3–37.1; O2SAT 95–97
[2024-09-07] MEDS: piperacillin-tazobactam 3.375 GM in sodium chloride 0.9% (plus) 50 ML IV (05:09)
[2024-09-07] MEDS: polyethylene glycol 3350 Pkt 17 gm PO (09:03)
--- NOTE | 2024-09-07 09:40 | P.PN_ITS ---
Subjective 2 Subjective: Passing gas non distended tolerating diet Abdomen benign Vitals/I&O/Wt Last Vital Signs Temp 97.6 F 09/07/24 07:30 Pulse 71 09/07/24 08:47 Resp 16 09/07/24 08:39 BP 127/80 09/07/24 07:30 Pulse Ox 97 09/07/24 08:39 O2 Del Method Room Air 09/07/24 08:39 O2 Flow Rate 2 09/04/24 05:00 09/06/24 09/07/24 09/07/24 22:59 06:59 14:59 Intake Total 170 / 576 50 / 626 50 / 50 Output Total 1200 / 2000 300 / 2300 Balance -1030 / -1424 -250 / -1674 50 / 50 Weight last 48 hrs Weight 176 lb 3 oz Weight 189 lb Physical Exam 2 Narrative: rrr unlabored breathing ra abdomen soft, nt, nd. Incision c/d/i yamileth in place. OPAL dressing removed. Urinary Catheter Management: Kern: Cath Placed During This Visit: yes, but has since been removed by the nurse Reason for Continuing Indwelling Catheter: Decision to DC Catheter Urinary Catheter Date of Insertion: 09/04/24 Urinary Catheter Time of Insertion: 00:29 Date Urinary Catheter Removed: 09/04/24 Time Urinary Catheter Discontinued: 14:00 Data 09/05/24 01:23 09/05/24 01:23 A&P Assessment and plan 1. Incarcerated ventral hernia: Plan: 58 yo male s/p ex lap for sbo 2/2 ventral hernias. Passing gas. Tolerating diet. Cleared for discharge. PDMP PDMP Reviewed: Last Reviewed 09/07/24 11:53 EDT by Timi Arvizu MD Attestations 2 Medical Necessity Statement*: NA Coding Level of Care Code 12801 Diagnoses Incarcerated ventral hernia K43.6
--- NOTE | 2024-09-07 09:40 | PM.DCS ---
Discharge Providers Date of Admission: 09/04/24 00:15 Date of Discharge: September 07, 2024 Attending Provider at Admission: Alana Gregorio MD Attending Provider at Discharge: Alana Gregorio MD Primary Care Provider: Marquez Rivas MD Diagnoses at Discharge Discharge Diagnosis 1. Incarcerated ventral hernia: 2. Leukocytosis: Reason for Visit Reason for Visit: hernia Hospital Course Hospital Course 58 yo male s/p ex lap for SBO 2/2 ventral hernias. See op report by Dr. Gregorio for details. Now having bowel function. Drain is out. Doing well. Discharing today. Physical Exam Narrative: rrr unlabored breathing ra abdomen soft, nt, nd. Incision c/d/i yamileth in place. OPAL dressing removed. Urinary Catheter Management: [place]: Cath Placed During This Visit: yes, but has since been removed by the nurse Reason for Continuing Indwelling Catheter: Decision to DC Catheter Urinary Catheter Date of Insertion: 09/04/24 Urinary Catheter Time of Insertion: 00:29 Date Urinary Catheter Removed: 09/04/24 Time Urinary Catheter Discontinued: 14:00 Discharge Data Studies Completed and Pending Completed Studies During Hospitalization Category Date Time Status CT abdomen pelvis w con* [id number] Stat Cat Scan 09/03/24 16:37 Completed Pending at discharge Category Date Time Status Pathology: Surgical [PTH] Routine Pth 09/04/24 00:14 Received Radiology Impressions Abdomen/Pelvis CT 09/03/24 16:37 IMPRESSION: 1. Mechanical small bowel obstruction caused by a periumbilical hernia which contains small bowel 2. A benign renal cyst or cysts have been detected. No further follow-up imaging is required. COMMENTS: Consistent with the [employer]'s Incidental Findings Committee white paper (J Am Sarah Radiol 2018): Any incidental renal lesion less than 1 cm or classified as too small to characterize, or any incidental cystic renal lesion characterized as simple-appearing, is likely benign. No follow-up imaging is recommended for these lesions per consensus recommendations based on imaging criteria. Laboratory Results WBC 8.66 10^3/uL (3.29-11.43) 09/05/24 01:23 RBC 3.56 10^6/uL (3.85-5.65) L 09/05/24 01:23 Hgb 11.80 g/dL (11.27-16.99) 09/05/24 01:23 Hct 35.9 % (37-53) L 09/05/24 01:23 MCV 100.8 fl (82-101) 09/05/24 01:23 MCH 33.1 pg (27-33) H 09/05/24 01:23 MCHC 32.9 g/dL (30-55) 09/05/24 01:23 RDW 13.9 % (12.1-15.1) 09/05/24 01:23 Plt Count 228 10^3/cmm (157-399) 09/05/24 01:23 MPV 8.8 fL (7.4-10.4) 09/05/24 01:23 Neut % (Auto) 57.4 % 09/05/24 01:23 Lymph % (Auto) 29.3 % 09/05/24 01:23 [place] % (Auto) 11.9 % 09/05/24 01:23 Eos % (Auto) 0.6 % 09/05/24 01:23 Baso % (Auto) 0.5 % 09/05/24 01:23 Neut # (Auto) 4.97 10^3/uL (1.8-7.7) 09/05/24 01:23 Lymph # (Auto) 2.5 10^3/uL (0.8-4.8) 09/05/24 01:23 [place] # (Auto) 1.0 10^3/uL (0.2-0.9) H 09/05/24 01:23 Eos # (Auto) 0.1 10^3/uL (0.0-0.8) 09/05/24 01:23 Baso # (Auto) 0.0 10^3/uL (0.0-0.1) 09/05/24 01:23 Nucleated RBC % (auto) 0 % 09/05/24 01:23 Nucleated RBCs # 0.0 /100WBC 09/05/24 01:23 Sodium 144 mmol/L (136-145) 09/05/24 01:23 Potassium 3.8 mmol/L (3.5-5.1) 09/05/24 01:23 Chloride 110 mmol/L (98-107) H 09/05/24 01:23 Carbon Dioxide 23 mmol/L (22-29) 09/05/24 01:23 Anion Gap 14.8 (5-19) 09/05/24 01:23 BUN 13 mg/dL (6-20) 09/05/24 01:23 Creatinine 0.7 mg/dL (0.7-1.2) 09/05/24 01:23 GFR Calculation 116.7 mL/min (90-130) 09/05/24 01:23 Glucose 94 mg/dL (65-115) 09/05/24 01:23 Calculated Osmolality 298 mOsm/kg (285-295) H 09/05/24 01:23 Lactic Acid 1.9 mmol/L (0.5-2.2) 09/03/24 16:05 Calcium 7.7 mg/dL (8.5-10.5) L 09/05/24 01:23 Total Bilirubin 0.7 mg/dL (0.15-1.2) 09/05/24 01:23 AST 13 U/L (0-40) 09/05/24 01:23 ALT 12 U/L (0-41) 09/05/24 01:23 Alkaline Phosphatase 53 U/L (40-130) 09/05/24 01:23 Total Protein 5.7 g/dL (6.6-8.7) L 09/05/24 01:23 Albumin 3.3 g/dL (3.5-5.2) L 09/05/24 01:23 Globulin 2.4 g/dL (1.3-4.6) 09/05/24 01:23 Urine Color Yellow (Yellow) 09/03/24 16:03 Urine Appearance Clear (CLEAR) 09/03/24 16:03 Urine pH 5.5 (5-7) 09/03/24 16:03 Ur Specific [place] 1.026 (1.005-1.030) 09/03/24 16:03 Urine Protein 1+ (Negative) A 09/03/24 16:03 Urine Glucose (UA) Negative (Normal) 09/03/24 16:03 Urine Ketones 1+ (Negative) H 09/03/24 16:03 Urine Blood Negative (Negative) 09/03/24 16:03 Urine Nitrate Negative (Negative) 09/03/24 16:03 Urine Bilirubin Negative (Negative) 09/03/24 16:03 Urine Urobilinogen 0.2 mg/dL (Negative) 09/03/24 16:03 Ur Leukocyte Esterase Negative (Negative) 09/03/24 16:03 Urine RBC 3-5 /hpf (0-2) 09/03/24 16:03 Urine WBC 0-5 /hpf (0-5) 09/03/24 16:03 Ur Squamous Epith Cells 0-5 /hpf (0-5) 09/03/24 16:03 Amorphous Sediment Not Reportable 09/03/24 16:03 Urine Bacteria None seen /hpf (NONE) 09/03/24 16:03 Hyaline Casts 1.21 /lpf 09/03/24 16:03 Vitals Last Vital Signs Temp 97.6 F 09/07/24 07:30 Pulse 71 09/07/24 08:47 Resp 16 09/07/24 08:39 BP 127/80 09/07/24 07:30 Pulse Ox 97 09/07/24 08:39 O2 Del Method Room Air 09/07/24 08:39 O2 Flow Rate 2 09/04/24 05:00 Discharge Plan Discharge Patient Disposition: Home Condition: Stable Prescriptions: New oxycodone 5 mg tablet 5 mg PO Q6H PRN (Reason: pain) 10 Days Qty: 20 0RF Continued ondansetron HCl 8 mg tablet 8 mg PO Q8H PRN (Reason: Nausea) mirtazapine 30 mg tablet 30 mg PO DAILY epinephrine 0.3 mg/0.3 mL auto-injector 0.3 ml IM PRN PRN (Reason: Allergic Reaction) albuterol sulfate 90 mcg/actuation HFA aerosol inhaler 1 puff INHALATION Q6H PRN (Reason: Shortness Of Breath) propranolol 20 mg tablet 20 mg PO TID topiramate 50 mg tablet 50 mg PO DAILY Combivent Respimat 20-100 mcg/actuation mist 2 puff INHALATION QID Discharge Order = DC NOW: Discharge Order (Routine); Ordered 09/07/24 Ordered By: Timi Arvizu Referrals: Niya Shane [Other] - 09/09/24 10:15 am Referral Note: Please arrive 15 mins early to complete paperwork. If you are unable to keep this appointment please call to cancel/reschedule. Timi Arvizu MD [Physician, General Surgery] - 09/21/24 8:15 am Referral Note: appointment with [facility] Discharge Diet: Advance as tolerated Discharge Activity: Limit activity as instructed Patient Instructions: Oxycodone, Rapid Release (By mouth), Ventral Hernia (GEN), Opioid Safety, Patient Portal & [facility] Instructions Activity Restrictions/Additional Instructions: 1. No heavy exercise or lifting greater than 10lbs for 6 weeks. 2. No pools, saunas, bathtubs for [address] if taking narcotics. 4. You may take over the counter tylenol 650mg every 6 hrs and ibuprofen 400mg every 6 hrs as needed for 5 days in addition to the oxycodone. 5. Follow-up in clinic in 2 weeks. 6. Call the office if you have any concerns or questions. Return to ED for fever, severe abdominal pain, vomiting. Discharge Attestations Time Spent in Discharge Care*: greater than 30 min Quality Metrics Clinical Quality Measures [ No reported AMI, CVA or VTE this stay] Coding Level of Care Code Acute Code for Chg Fwd Diagnoses Incarcerated ventral hernia K43.6 Leukocytosis D72.829
--- NOTE | 2024-09-07 11:41 | PC.NURSE ---
Discharge instructions provided to pt at this time. No questions or concerns. States that [facility] had all of his RX filled, but did not bring to him. This nurse attempts to call [facility], but unable to reach anyone there.
--- NOTE | 2024-09-07 12:00 | PC.NURSE ---
[facility] [place] calls back and states that RX meds are in bag delivered this am. Bag inspected by this nurse and meds found. Pt got in cartender ride home.
--- NOTE | 2024-09-07 12:43 | P.PN_ITS ---
Subjective 2 Subjective: seen this morning no acute events overnight Vitals/I&O/Wt Last Vital Signs Temp 98.2 F 09/07/24 12:01 Pulse 81 09/07/24 12:01 Resp 18 09/07/24 12:01 BP 145/88 09/07/24 12:01 Pulse Ox 96 09/07/24 12:01 O2 Del Method Room Air 09/07/24 11:21 O2 Flow Rate 2 09/04/24 05:00 09/06/24 09/07/24 09/07/24 22:59 06:59 14:59 Intake Total 170 / 576 50 / 626 50 / 50 Output Total 1200 / 2000 300 / 2300 Balance -1030 / -1424 -250 / -1674 50 / 50 Weight last 48 hrs Weight 79.917 kg Weight 85.729 kg Physical Exam 2 Narrative: General: No acute distress, AO x3 HEENT: PERRLA, pupils bilaterally equal and reactive, pallors not present Chest: Normal vesicular breath sounds, no added sounds, equal good air entry bilaterally CVS: S1-S2 regular, Abdomen: post op abdomen, non tender EXT: no edema or cyanosis Neuro: no focal deficits Urinary Catheter Management: [place]: Cath Placed During This Visit: yes, but has since been removed by the nurse Reason for Continuing Indwelling Catheter: Decision to DC Catheter Urinary Catheter Date of Insertion: 09/04/24 Urinary Catheter Time of Insertion: 00:29 Date Urinary Catheter Removed: 09/04/24 Time Urinary Catheter Discontinued: 14:00 Data 09/05/24 01:23 09/05/24 01:23 A&P Assessment and plan 1. Incarcerated ventral hernia: 2. Leukocytosis: Plan: 58-year-old male brought to the emergency room today with incarcerated ventral hernia for which he has currently undergone laparotomy, reduction of the hernia and adhesiolysis today. Advance diet, anticoagulation as per surgical team. Out of bed to chair. Encourage patient to ambulate. For now continue with IV Zosyn. Can plan to complete a 3-day course of IV antibiotics. Discussed in detail with the patient regarding need for smoking cessation to prevent from recurrence of hernia. Patient verbalizes understanding. For now we will continue with nicotine patch. Will provide patient resources for help with quitting of smoking. For now we will add Tessalon Perles as needed for cough. Continue with current pain medication with Toradol as needed. If needed can add low-dose morphine every 4 hours as needed for pain. Incentive spirometry. Start on DuoNeb every 6 hour. Patient takes Atrovent 4 times daily at home. Full code Lovenox for DVT prophylaxis Clear liquid diet. Thank you for involving us in care of Mr. Prado. Please call with any questions. 09/06/2024 seen this am continue IV abx await return of bowel function continue pain mgmt plans to go back to [facility] 09/07/2024 pt doing well gen surgery plans to dc today anticoagulation per surgical team patient does not want any opioids at dc PDMP PDMP Reviewed: Not Reviewed Attestations 2 Medical Necessity Statement*: As per primary team Diagnoses Incarcerated ventral hernia K43.6 Leukocytosis D72.829
== END 2024-09-07 12:04 | disposition home or self-care (01) | DRG 337 ==
LOC: ER 19:36 → OR 19:53 → MEDSURG 09-04 04:27
PROVIDERS: Family Medicine; Student in an Organized Health Care Education/Training Program; Admitting Provider Surgery; Emergency Provider Emergency Medicine; Visit Provider Surgery
PROC: (CPT 49000; 2024-09-03 20:30)
PROC: 0WQF0ZZ Repair Abdominal Wall, Open Approach (ICD-10-PCS; 2024-09-03 20:30)
DX: K43.6 Other and unspecified ventral hernia with obstruction, without gangrene (principal); G89.18 Other acute postprocedural pain; F17.210 Nicotine dependence, cigarettes, uncomplicated; K66.0 Peritoneal adhesions (postprocedural) (postinfection); Z90.49 Acquired absence of other specified parts of digestive tract; Z85.9 Personal history of malignant neoplasm, unspecified
CPT/HCPCS: 36415; 51702; 74177; 80048; 80053; 81001; 83605; 83690; 83880; 85025; 86140; 88302; 88305; 94640; 96365; 96366; 96372; 96374; 96375; 97161; 99285; J0131; J0330; J1100; J1171; J1650; J1885; J2250; J2405; J2543; J2704; J3010; J3490; J7030; J9999; P9045

== ENCOUNTER → 2024-09-27 09:21 | Outpatient (BNVA) | payer MEDICARE, SELFPAY | PROVIDERS: Visit Provider Student in an Organized Health Care Education/Training Program | DX: Z98.890 Other specified postprocedural states (principal); Z87.19 Personal history of other diseases of the digestive system | CPT/HCPCS: 99024 ==